=== PATIENT | male | born 1945 | race Caucasian/White ===

== ENCOUNTER → 2017-08-28 | Outpatient (CLI) | payer OTHER ==
[~2017-08-28] MED LIST: (None)20 M1 PO; ABAC300; ACET500; ALBU4CRA; ALBU90OI6 INH; AMOCLA875 PO; AMOX500 PO; AZIT500 PO; BENZ100A PO; CHLO2; CIPR250 PO; Duoneb 2.5-0.5 M3 ML INH; FLUT1DIS5 INH; GUAI600T33 PO; HYDACE5 PO; HYDR1TAB94 PO; IBUP200; LEVFLO500 PO; MELO7.5 PO; METO25 PO; MUCUS ER600 MG PO; Mucinex600 MG; NICO14TP TOP; NICO21TP TOP; OMEP40CA12 PO; PRED20; PRED20 PO; PROACE100 PO; RANI150 PO; RXPROACE PO; SPIRIVA RESPIMAT4 G1 INH; TAMS.4ER PO; TIOT18; TRAM50; XARELTO20 MG PO; Zofran8 MG
[2017-08-28 12:56] LABS: BASOPHILS ABSOLUTE AUTO 0.08 K/mm3 (0.00-0.23); BASOPHILS PERCENT AUTO 0 % (0-2); EOSINOPHILS ABSOLUTE AUTO 0.01 K/mm3 (0.00-0.68); EOSINOPHILS PERCENT AUTO 0 % (0-6); Hematocrit 41.5 % (37.0-53.0); Hemoglobin 13.3 g/dL (13.5-17.5); IMMATURE GRAN ABSOLUTE AUTO 0.23 K/mm3 (0.00-0.10); IMMATURE GRAN PERCENT AUTO 1 % (0-1); LYMPHOCYTES ABSOLUTE AUTO 5.41 K/mm3 (0.84-5.20); LYMPHOCYTES PERCENT AUTO 27 % (21-46); MONOCYTES ABSOLUTE AUTO 1.72 K/mm3 (0.16-1.47); MONOCYTES PERCENT AUTO 9 % (4-13); Mean Corpuscular HGB 29.8 pg (26.0-34.0); Mean Corpuscular Volume 93 fL (80-100); Mean Platelet Volume 10.8 fL (9.1-12.4); NEUTROPHILS ABSOLUTE AUTO 12.56 K/mm3 (1.96-9.15); NEUTROPHILS PERCENT AUTO 63 % (41-73); Platelet Count 272 K/mm3 (150-400); RDW Coefficient Variation 14.2 % (11.7-14.2); RDW Standard Deviation 48.4 fL (35.1-46.3); Red Blood Cell Count 4.47 M/mm3 (4.30-5.90); White Blood Cell Count 20.01 K/mm3 (4.00-11.30)
[2017-08-28 13:02] LABS: Bun/Creatinine Ratio 15.8 (12.0-20.0); Calcium, Blood 9.1 mg/dL (8.5-10.1); Creatinine, Blood 1.2 mg/dL (0.60-1.20); Potassium, Blood 4.4 mmol/L (3.5-5.5)
== END | disposition home or self-care (01) ==
LOC: LAB EV 12:52
PROVIDERS: Physician Assistant Surgical
DX: R53.83 Other fatigue (principal)
CPT/HCPCS: 80048; 85025

== ENCOUNTER → 2017-08-29 | Outpatient (CLI) | payer OTHER ==
[2017-08-29 10:15] LABS: BASOPHILS ABSOLUTE AUTO 0.05 K/mm3 (0.00-0.23); BASOPHILS PERCENT AUTO 0 % (0-2); EOSINOPHILS ABSOLUTE AUTO 0.02 K/mm3 (0.00-0.68); EOSINOPHILS PERCENT AUTO 0 % (0-6); Hematocrit 39.1 % (37.0-53.0); Hemoglobin 12.8 g/dL (13.5-17.5); IMMATURE GRAN ABSOLUTE AUTO 0.12 K/mm3 (0.00-0.10); IMMATURE GRAN PERCENT AUTO 1 % (0-1); LYMPHOCYTES ABSOLUTE AUTO 4.16 K/mm3 (0.84-5.20); LYMPHOCYTES PERCENT AUTO 30 % (21-46); MONOCYTES ABSOLUTE AUTO 1.12 K/mm3 (0.16-1.47); MONOCYTES PERCENT AUTO 8 % (4-13); Mean Corpuscular HGB 30.1 pg (26.0-34.0); Mean Corpuscular HGB Conc 32.7 g/dL (31.5-36.5); Mean Corpuscular Volume 92 fL (80-100); Mean Platelet Volume 10.9 fL (9.1-12.4); NEUTROPHILS ABSOLUTE AUTO 8.25 K/mm3 (1.96-9.15); NEUTROPHILS PERCENT AUTO 60 % (41-73); Platelet Count 227 K/mm3 (150-400); RDW Coefficient Variation 14.1 % (11.7-14.2); RDW Standard Deviation 47.9 fL (35.1-46.3); Red Blood Cell Count 4.25 M/mm3 (4.30-5.90); White Blood Cell Count 13.72 K/mm3 (4.00-11.30)
[2017-08-29 10:17] LABS: Anion Gap 5 mmol/L (6-16); Blood Urea Nitrogen 19 mg/dL (8-24); Bun/Creatinine Ratio 16.4 (12.0-20.0); CO2, Blood 31 mmol/L (21-32); Calcium, Blood 8.9 mg/dL (8.5-10.1); Chloride, Blood 103 mmol/L (98-108); Creatinine, Blood 1.16 mg/dL (0.60-1.20); Glomerular Filtration Rate >60 (60-); Glucose, Blood 139 mg/dL (70-99); Potassium, Blood 3.8 mmol/L (3.5-5.5); Sodium, Blood 139 mmol/L (136-145)
== END | disposition home or self-care (01) ==
LOC: LAB EV 10:08
PROVIDERS: Physician Assistant Surgical
DX: J18.9 Pneumonia, unspecified organism (principal)
CPT/HCPCS: 80048; 85025

== ENCOUNTER 2017-09-30 10:46 | Inpatient (IN) | payer OTHER ==
[~2017-09-30] VITALS: Ht 165.1 cm; Wt 72.7 kg
[~2017-09-30 10:46] MED LIST changes: -BENZ100A PO; -Duoneb 2.5-0.5 M3 ML INH; -HYDR1TAB94 PO; -METO25 PO; -MUCUS ER600 MG PO; -NICO21TP TOP; -PRED20 PO; -XARELTO20 MG PO
[2017-09-30 11:17] LABS: Hematocrit 38.9 % (37.0-53.0); Hemoglobin 12.4 g/dL (13.5-17.5); Mean Corpuscular HGB 29.2 pg (26.0-34.0); Mean Corpuscular HGB Conc 31.9 g/dL (31.5-36.5); Mean Corpuscular Volume 92 fL (80-100); Mean Platelet Volume 10.9 fL (9.1-12.4); Platelet Count 179 K/mm3 (150-400); RDW Coefficient Variation 13.7 % (11.7-14.2); RDW Standard Deviation 46.5 fL (35.1-46.3); Red Blood Cell Count 4.25 M/mm3 (4.30-5.90); White Blood Cell Count 12.34 K/mm3 (4.00-11.30)
[2017-09-30 11:32] LABS: Alanine Aminotransfer (ALT/SGP 23 U/L (12-78); Albumin/Globulin Ratio 0.8 (0.8-1.8); Alk Phos 122 U/L (50-136); Anion Gap 8 mmol/L (6-16); Aspartate Aminotrans (AST/SGOT 18 U/L (12-37); Bilirubin, Total 0.7 mg/dL (0.1-1.0); Blood Urea Nitrogen 13 mg/dL (8-24); CO2, Blood 29 mmol/L (21-32); Calcium, Blood 8.9 mg/dL (8.5-10.1); Chloride, Blood 101 mmol/L (98-108); Creatinine, Blood 0.93 mg/dL (0.60-1.20); Globulin, Blood 3.8 g/dL (2.2-4.0); Glomerular Filtration Rate >60 (60-); Glucose, Blood 107 mg/dL (70-99); Potassium, Blood 3.9 mmol/L (3.5-5.5); Sodium, Blood 138 mmol/L (136-145); Total Protein, Blood 6.8 g/dL (6.4-8.2); Troponin I <0.015 ng/mL (0.000-0.040)
[2017-09-30 11:41] LABS: BAND PERCENT MAN 14 % (0-8); BASOPHILS PERCENT MAN 0 % (0-2); EOSINOPHILS ABSOLUTE MAN 0.12 K/mm3 (0.00-0.68); EOSINOPHILS PERCENT MAN 1 % (0-6); LYMPHOCYTES % ATYPICAL MANUAL 5 % (0-0); LYMPHOCYTES ABSOLUTE MAN 3.08 K/mm3 (0.84-5.20); LYMPHOCYTES PERCENT MAN 20 % (21-46); MONOCYTES ABSOLUTE MAN 2.22 K/mm3 (0.16-1.47); MONOCYTES PERCENT MAN 18 % (4-13); NEUTROPHILS ABSOLUTE MAN 6.91 K/mm3 (1.96-9.15); SEG NEUTROPHILS PERCENT MAN 42 % (41-73); TOTAL CELLS COUNTED 100
[2017-09-30] MEDS ORDERED: TAMS.4ER PO (13:41)
[2017-10-01 04:18] LABS: BASOPHILS ABSOLUTE AUTO 0.03 K/mm3 (0.00-0.23); BASOPHILS PERCENT AUTO 0 % (0-2); EOSINOPHILS PERCENT AUTO 0 % (0-6); Hematocrit 37.9 % (37.0-53.0); Hemoglobin 11.8 g/dL (13.5-17.5); IMMATURE GRAN ABSOLUTE AUTO 0.08 K/mm3 (0.00-0.10); IMMATURE GRAN PERCENT AUTO 1 % (0-1); LYMPHOCYTES ABSOLUTE AUTO 3.15 K/mm3 (0.84-5.20); LYMPHOCYTES PERCENT AUTO 30 % (21-46); MONOCYTES ABSOLUTE AUTO 0.63 K/mm3 (0.16-1.47); MONOCYTES PERCENT AUTO 6 % (4-13); Mean Corpuscular HGB 28.9 pg (26.0-34.0); Mean Corpuscular HGB Conc 31.1 g/dL (31.5-36.5); Mean Corpuscular Volume 93 fL (80-100); NEUTROPHILS ABSOLUTE AUTO 6.56 K/mm3 (1.96-9.15); NEUTROPHILS PERCENT AUTO 63 % (41-73); Platelet Count 198 K/mm3 (150-400); RDW Coefficient Variation 13.8 % (11.7-14.2); RDW Standard Deviation 47.1 fL (35.1-46.3); Red Blood Cell Count 4.09 M/mm3 (4.30-5.90); White Blood Cell Count 10.45 K/mm3 (4.00-11.30)
[2017-10-01 04:41] LABS: Anion Gap 7 mmol/L (6-16); Blood Urea Nitrogen 18 mg/dL (8-24); Bun/Creatinine Ratio 18.9 (12.0-20.0); CO2, Blood 30 mmol/L (21-32); Calcium, Blood 8.6 mg/dL (8.5-10.1); Chloride, Blood 103 mmol/L (98-108); Creatinine, Blood 0.95 mg/dL (0.60-1.20); Glomerular Filtration Rate >60 (60-); Glucose, Blood 158 mg/dL (70-99); Potassium, Blood 4.2 mmol/L (3.5-5.5); Sodium, Blood 140 mmol/L (136-145)
[2017-10-03 05:19] LABS: BASOPHILS ABSOLUTE AUTO 0.03 K/mm3 (0.00-0.23); BASOPHILS PERCENT AUTO 0 % (0-2); EOSINOPHILS ABSOLUTE AUTO 0.01 K/mm3 (0.00-0.68); EOSINOPHILS PERCENT AUTO 0 % (0-6); Hematocrit 36.8 % (37.0-53.0); Hemoglobin 11.6 g/dL (13.5-17.5); Mean Corpuscular HGB 29.3 pg (26.0-34.0); Mean Corpuscular HGB Conc 31.5 g/dL (31.5-36.5); Mean Corpuscular Volume 93 fL (80-100); Mean Platelet Volume 10.9 fL (9.1-12.4); Platelet Count 254 K/mm3 (150-400); RDW Coefficient Variation 14.1 % (11.7-14.2); RDW Standard Deviation 48.3 fL (35.1-46.3); Red Blood Cell Count 3.96 M/mm3 (4.30-5.90); White Blood Cell Count 14.33 K/mm3 (4.00-11.30)
[2017-10-03 05:25] LABS: IMMATURE GRAN ABSOLUTE AUTO 0.21 K/mm3 (0.00-0.10); IMMATURE GRAN PERCENT AUTO 2 % (0-1); LYMPHOCYTES PERCENT AUTO 40 % (21-46); MONOCYTES ABSOLUTE AUTO 1.04 K/mm3 (0.16-1.47); MONOCYTES PERCENT AUTO 7 % (4-13); NEUTROPHILS ABSOLUTE AUTO 7.34 K/mm3 (1.96-9.15); NEUTROPHILS PERCENT AUTO 51 % (41-73)
[2017-10-03 05:39] LABS: Anion Gap 6 mmol/L (6-16); Blood Urea Nitrogen 23 mg/dL (8-24); CO2, Blood 31 mmol/L (21-32); Calcium, Blood 8.5 mg/dL (8.5-10.1); Chloride, Blood 104 mmol/L (98-108); Glomerular Filtration Rate >60 (60-); Glucose, Blood 107 mg/dL (70-99); Potassium, Blood 4.1 mmol/L (3.5-5.5); Sodium, Blood 141 mmol/L (136-145)
[2017-10-05 05:16] LABS: BASOPHILS ABSOLUTE AUTO 0.04 K/mm3 (0.00-0.23); BASOPHILS PERCENT AUTO 0 % (0-2); EOSINOPHILS ABSOLUTE AUTO 0.01 K/mm3 (0.00-0.68); EOSINOPHILS PERCENT AUTO 0 % (0-6); Hematocrit 38.5 % (37.0-53.0); Hemoglobin 12.4 g/dL (13.5-17.5); Mean Corpuscular HGB 29.1 pg (26.0-34.0); Mean Corpuscular HGB Conc 32.2 g/dL (31.5-36.5); Mean Platelet Volume 10.1 fL (9.1-12.4); Platelet Count 310 K/mm3 (150-400); RDW Coefficient Variation 13.8 % (11.7-14.2); RDW Standard Deviation 46.5 fL (35.1-46.3); Red Blood Cell Count 4.26 M/mm3 (4.30-5.90); White Blood Cell Count 15.31 K/mm3 (4.00-11.30)
[2017-10-05 05:36] LABS: IMMATURE GRAN PERCENT AUTO 2 % (0-1); LYMPHOCYTES ABSOLUTE AUTO 6.85 K/mm3 (0.84-5.20); LYMPHOCYTES PERCENT AUTO 45 % (21-46); MONOCYTES PERCENT AUTO 6 % (4-13); Mean Corpuscular Volume 90 fL (80-100); NEUTROPHILS ABSOLUTE AUTO 7.21 K/mm3 (1.96-9.15); NEUTROPHILS PERCENT AUTO 47 % (41-73)
[2017-10-05 05:48] LABS: Anion Gap 6 mmol/L (6-16); Blood Urea Nitrogen 23 mg/dL (8-24); Bun/Creatinine Ratio 26.3 (12.0-20.0); CO2, Blood 33 mmol/L (21-32); Calcium, Blood 8.8 mg/dL (8.5-10.1); Chloride, Blood 101 mmol/L (98-108); Creatinine, Blood 0.88 mg/dL (0.60-1.20); Glomerular Filtration Rate >60 (60-); Glucose, Blood 113 mg/dL (70-99); Potassium, Blood 4.7 mmol/L (3.5-5.5); Sodium, Blood 140 mmol/L (136-145)
[2017-10-06] MEDS ORDERED: BENZ100A PO (10:04)
[2017-10-06] MEDS ORDERED: Duoneb 2.5-0.5 M3 ML INH (10:05)
[2017-10-06] MEDS ORDERED: MUCUS ER600 MG PO (10:05)
[2017-10-06] MEDS ORDERED: METO25 PO (10:06)
[2017-10-06] MEDS ORDERED: XARELTO20 MG PO (10:07)
[2017-10-06] MEDS ORDERED: PRED20 PO (10:08)
[2018-05-20] MEDS ORDERED: NICO21TP TOP (15:23)
== END 2017-10-06 11:37 | disposition home or self-care (01) | DRG 871 ==
LOC: ER 10:46 → PCU 14:05 → MEDS 10-02 03:55 → ENPENDDIS 10-06 09:00 → MEDS 10-06 11:37
PROVIDERS: Internal Medicine; Psychiatry & Neurology Psychiatry
DX: A41.9 Sepsis, unspecified organism (principal); J18.9 Pneumonia, unspecified organism; J96.21 Acute and chronic respiratory failure with hypoxia; J44.0 Chronic obstructive pulmonary disease with (acute) lower respiratory infection; I48.91 Unspecified atrial fibrillation; R13.10 Dysphagia, unspecified; J44.1 Chronic obstructive pulmonary disease with (acute) exacerbation; C95.91 Leukemia, unspecified, in remission; R65.10 Systemic inflammatory response syndrome (SIRS) of non-infectious origin without acute organ dysfunction; Z85.46 Personal history of malignant neoplasm of prostate; F17.200 Nicotine dependence, unspecified, uncomplicated
CPT/HCPCS: 36415; 71046; 80048; 80053; 83605; 83880; 84145; 84443; 84484; 85025; 87040; 92526; 92610; 93005; 93010; 93306; 94640; 94760; 96365; 96375; 99285; G8996; G8997; J0456; J0696; J7030; J7050; J7120

== ENCOUNTER → 2017-10-20 | Outpatient (CLI) | payer OTHER ==
[~2017-10-20] MED LIST changes: +BENZ100A PO; +Duoneb 2.5-0.5 M3 ML INH; +HYDR1TAB94 PO; +METO25 PO; +MUCUS ER600 MG PO; +NICO21TP TOP; +PRED20 PO; +XARELTO20 MG PO
[2017-10-20 12:44] LABS: BASOPHILS ABSOLUTE AUTO 0.03 K/mm3 (0.00-0.23); BASOPHILS PERCENT AUTO 0 % (0-2); EOSINOPHILS ABSOLUTE AUTO 0.02 K/mm3 (0.00-0.68); EOSINOPHILS PERCENT AUTO 0 % (0-6); Hematocrit 40.2 % (37.0-53.0); Hemoglobin 12.9 g/dL (13.5-17.5); IMMATURE GRAN ABSOLUTE AUTO 0.18 K/mm3 (0.00-0.10); IMMATURE GRAN PERCENT AUTO 1 % (0-1); LYMPHOCYTES ABSOLUTE AUTO 7.04 K/mm3 (0.84-5.20); LYMPHOCYTES PERCENT AUTO 32 % (21-46); MONOCYTES ABSOLUTE AUTO 1.63 K/mm3 (0.16-1.47); MONOCYTES PERCENT AUTO 7 % (4-13); Mean Corpuscular HGB 29.6 pg (26.0-34.0); Mean Corpuscular HGB Conc 32.1 g/dL (31.5-36.5); Mean Corpuscular Volume 92 fL (80-100); Mean Platelet Volume 10.7 fL (9.1-12.4); NEUTROPHILS ABSOLUTE AUTO 13.44 K/mm3 (1.96-9.15); NEUTROPHILS PERCENT AUTO 60 % (41-73); Platelet Count 260 K/mm3 (150-400); RDW Coefficient Variation 15.4 % (11.7-14.2); Red Blood Cell Count 4.36 M/mm3 (4.30-5.90); White Blood Cell Count 22.34 K/mm3 (4.00-11.30)
[2017-10-20 12:54] LABS: Alanine Aminotransfer (ALT/SGP 21 U/L (12-78); Albumin, Blood 3.2 g/dL (3.4-5.0); Alk Phos 97 U/L (40-126); Anion Gap 3 mmol/L (6-16); Aspartate Aminotrans (AST/SGOT 9 U/L (12-37); Bilirubin, Total 0.9 mg/dL (0.1-1.0); Blood Urea Nitrogen 22 mg/dL (8-24); Bun/Creatinine Ratio 20.4 (12.0-20.0); CO2, Blood 34 mmol/L (21-32); Calcium, Blood 8.7 mg/dL (8.5-10.1); Chloride, Blood 103 mmol/L (98-108); Creatinine, Blood 1.08 mg/dL (0.60-1.20); Globulin, Blood 3.1 g/dL (2.2-4.0); Glomerular Filtration Rate >60 (60-); Glucose, Blood 122 mg/dL (70-99); Potassium, Blood 4.3 mmol/L (3.5-5.5); Sodium, Blood 140 mmol/L (136-145); Total Protein, Blood 6.3 g/dL (6.4-8.2)
== END | disposition home or self-care (01) ==
LOC: LAB EV 12:39
PROVIDERS: Physician Assistant Medical
DX: J44.1 Chronic obstructive pulmonary disease with (acute) exacerbation (principal); R06.00 Dyspnea, unspecified
CPT/HCPCS: 80053; 83880; 85025

== ENCOUNTER 2017-11-03 10:29 | Inpatient (IN) | payer OTHER ==
[~2017-11-03] VITALS: Ht 162.6 cm; Wt 72.4 kg
[~2017-11-03 10:29] MED LIST changes: -HYDR1TAB94 PO
[2017-11-03] MEDS ORDERED: HYDR1TAB94 PO (11:22)
[2017-11-03 11:23] LABS: Hematocrit 36.2 % (37.0-53.0); Hemoglobin 11.4 g/dL (13.5-17.5); Mean Corpuscular HGB 28.5 pg (26.0-34.0); Mean Corpuscular HGB Conc 31.5 g/dL (31.5-36.5); Mean Corpuscular Volume 91 fL (80-100); Mean Platelet Volume 10.6 fL (9.1-12.4); Platelet Count 247 K/mm3 (150-400); RDW Coefficient Variation 14.7 % (11.7-14.2); RDW Standard Deviation 49.1 fL (35.1-46.3); White Blood Cell Count 16.95 K/mm3 (4.00-11.30)
[2017-11-03] MEDS ORDERED: ALBU90OI6 INH (11:23)
[2017-11-03 11:31] LABS: Troponin I <0.015 ng/mL (0.000-0.040)
[2017-11-03 11:32] LABS: Alanine Aminotransfer (ALT/SGP 21 U/L (12-78); Albumin, Blood 2.4 g/dL (3.4-5.0); Albumin/Globulin Ratio 0.6 (0.8-1.8); Alk Phos 96 U/L (50-136); Anion Gap 3 mmol/L (6-16); Aspartate Aminotrans (AST/SGOT 9 U/L (12-37); Bilirubin, Total 0.6 mg/dL (0.1-1.0); Blood Urea Nitrogen 12 mg/dL (8-24); Bun/Creatinine Ratio 12.7 (12.0-20.0); CO2, Blood 30 mmol/L (21-32); Calcium, Blood 8.5 mg/dL (8.5-10.1); Chloride, Blood 103 mmol/L (98-108); Creatinine, Blood 0.94 mg/dL (0.60-1.20); Globulin, Blood 3.8 g/dL (2.2-4.0); Glomerular Filtration Rate >60 (60-); Glucose, Blood 121 mg/dL (70-99); Potassium, Blood 4.3 mmol/L (3.5-5.5); Sodium, Blood 136 mmol/L (136-145); Total Protein, Blood 6.2 g/dL (6.4-8.2)
[2017-11-03 12:10] LABS: BAND PERCENT MAN 10 % (0-8); BASOPHILS PERCENT MAN 0 % (0-2); EOSINOPHILS PERCENT MAN 0 % (0-6); LYMPHOCYTES ABSOLUTE MAN 1.86 K/mm3 (0.84-5.20); LYMPHOCYTES PERCENT MAN 11 % (21-46); METAMYELOCYTE ABSOLUTE MAN 0.16 K/mm3 (0.00-0.00); METAMYELOCYTE PERCENT MAN 1 % (0-0); MONOCYTES ABSOLUTE MAN 1.01 K/mm3 (0.16-1.47); MONOCYTES PERCENT MAN 6 % (4-13); NEUTROPHILS ABSOLUTE MAN 13.89 K/mm3 (1.96-9.15); SEG NEUTROPHILS PERCENT MAN 72 % (41-73); TOTAL CELLS COUNTED 100
[2017-11-04 05:32] LABS: BASOPHILS ABSOLUTE AUTO 0.01 K/mm3 (0.00-0.23); BASOPHILS PERCENT AUTO 0 % (0-2); EOSINOPHILS PERCENT AUTO 0 % (0-6); Hematocrit 32.7 % (37.0-53.0); Hemoglobin 10.3 g/dL (13.5-17.5); IMMATURE GRAN ABSOLUTE AUTO 0.08 K/mm3 (0.00-0.10); IMMATURE GRAN PERCENT AUTO 1 % (0-1); LYMPHOCYTES ABSOLUTE AUTO 2.33 K/mm3 (0.84-5.20); LYMPHOCYTES PERCENT AUTO 28 % (21-46); MONOCYTES ABSOLUTE AUTO 0.25 K/mm3 (0.16-1.47); MONOCYTES PERCENT AUTO 3 % (4-13); Mean Corpuscular HGB 28.3 pg (26.0-34.0); Mean Corpuscular HGB Conc 31.5 g/dL (31.5-36.5); Mean Corpuscular Volume 90 fL (80-100); Mean Platelet Volume 10.6 fL (9.1-12.4); NEUTROPHILS ABSOLUTE AUTO 5.54 K/mm3 (1.96-9.15); NEUTROPHILS PERCENT AUTO 68 % (41-73); Platelet Count 231 K/mm3 (150-400); RDW Coefficient Variation 14.4 % (11.7-14.2); Red Blood Cell Count 3.64 M/mm3 (4.30-5.90); White Blood Cell Count 8.21 K/mm3 (4.00-11.30)
[2017-11-04 05:56] LABS: Alanine Aminotransfer (ALT/SGP 16 U/L (12-78); Albumin/Globulin Ratio 0.6 (0.8-1.8); Alk Phos 81 U/L (50-136); Anion Gap 5 mmol/L (6-16); Aspartate Aminotrans (AST/SGOT 6 U/L (12-37); Bilirubin, Total 0.2 mg/dL (0.1-1.0); Blood Urea Nitrogen 19 mg/dL (8-24); Bun/Creatinine Ratio 23.2 (12.0-20.0); CO2, Blood 28 mmol/L (21-32); Calcium, Blood 8.3 mg/dL (8.5-10.1); Chloride, Blood 106 mmol/L (98-108); Creatinine, Blood 0.82 mg/dL (0.60-1.20); Globulin, Blood 3.5 g/dL (2.2-4.0); Glomerular Filtration Rate >60 (60-); Glucose, Blood 179 mg/dL (70-99); Potassium, Blood 4.5 mmol/L (3.5-5.5); Sodium, Blood 139 mmol/L (136-145); Total Protein, Blood 5.5 g/dL (6.4-8.2)
[2017-11-04 11:23] LABS: Source, Urine Clean Catch
[2017-11-04 11:30] LABS: Bilirubin, Urine Neg (Neg); Blood, Urine 1+ (Neg); Glucose Qualitative, Urine 2+ (Neg); Ketones, Urine Neg (Neg); Leukocyte Esterase, Urine Neg (Neg); Nitrite, Urine Neg (Neg); Protein, Urine 2+ (Neg); Specific Gravity, Urine 1.025 (1.003-1.022); Urobilinogen, Urine NORM (Normal)
[2017-11-04 11:39] LABS: Appearance, Urine Clear (Clear); Color, Urine Yellow (P-Yellow)
[2017-11-04 11:40] LABS: Hyaline Casts 0-2 /lpf (0-2)
[2017-11-04 11:41] LABS: Bacteria Few /hpf; Mucus Light (0-Heavy); Red Blood Cells, Urine 0-2 /hpf (0-2); Squamous Epithelial Cells Few /hpf (Few); White Blood Cells, Urine 0-2 /hpf (0-5)
[2017-11-06 05:12] LABS: BASOPHILS ABSOLUTE AUTO 0.03 K/mm3 (0.00-0.23); BASOPHILS PERCENT AUTO 0 % (0-2); EOSINOPHILS PERCENT AUTO 0 % (0-6); Hematocrit 33.9 % (37.0-53.0); Hemoglobin 10.5 g/dL (13.5-17.5); IMMATURE GRAN ABSOLUTE AUTO 0.35 K/mm3 (0.00-0.10); IMMATURE GRAN PERCENT AUTO 2 % (0-1); LYMPHOCYTES ABSOLUTE AUTO 3.66 K/mm3 (0.84-5.20); LYMPHOCYTES PERCENT AUTO 24 % (21-46); MONOCYTES ABSOLUTE AUTO 0.31 K/mm3 (0.16-1.47); MONOCYTES PERCENT AUTO 2 % (4-13); Mean Corpuscular HGB 28.2 pg (26.0-34.0); Mean Corpuscular Volume 91 fL (80-100); Mean Platelet Volume 10.7 fL (9.1-12.4); NEUTROPHILS ABSOLUTE AUTO 11.05 K/mm3 (1.96-9.15); NEUTROPHILS PERCENT AUTO 72 % (41-73); Platelet Count 322 K/mm3 (150-400); RDW Coefficient Variation 14.5 % (11.7-14.2); RDW Standard Deviation 48.6 fL (35.1-46.3); Red Blood Cell Count 3.72 M/mm3 (4.30-5.90)
[2017-11-06 05:36] LABS: Percent Saturation 27.1 % (20.0-50.0)
[2017-11-06 05:42] LABS: Alanine Aminotransfer (ALT/SGP 29 U/L (12-78); Albumin, Blood 2.3 g/dL (3.4-5.0); Albumin/Globulin Ratio 0.7 (0.8-1.8); Alk Phos 85 U/L (50-136); Anion Gap 7 mmol/L (6-16); Aspartate Aminotrans (AST/SGOT 10 U/L (12-37); Bilirubin, Total 0.2 mg/dL (0.1-1.0); Blood Urea Nitrogen 31 mg/dL (8-24); Bun/Creatinine Ratio 29.8 (12.0-20.0); CO2, Blood 29 mmol/L (21-32); Calcium, Blood 8.3 mg/dL (8.5-10.1); Chloride, Blood 105 mmol/L (98-108); Creatinine, Blood 1.04 mg/dL (0.60-1.20); Globulin, Blood 3.3 g/dL (2.2-4.0); Glomerular Filtration Rate >60 (60-); Glucose, Blood 251 mg/dL (70-99); Potassium, Blood 4.5 mmol/L (3.5-5.5); Sodium, Blood 141 mmol/L (136-145); Total Protein, Blood 5.6 g/dL (6.4-8.2)
[2018-05-20] MEDS ORDERED: NICO21TP TOP (15:23)
== END 2017-11-06 14:34 | disposition home or self-care (01) | DRG 871 ==
LOC: ER 10:29 → MEDS 12:37 → ENPENDDIS 11-06 11:58 → MEDS 11-06 14:34
PROVIDERS: Emergency Medicine; Internal Medicine
DX: A41.9 Sepsis, unspecified organism (principal); J18.9 Pneumonia, unspecified organism; J96.01 Acute respiratory failure with hypoxia; J44.0 Chronic obstructive pulmonary disease with (acute) lower respiratory infection; J44.1 Chronic obstructive pulmonary disease with (acute) exacerbation; I48.2 Chronic atrial fibrillation; R13.10 Dysphagia, unspecified; Z85.46 Personal history of malignant neoplasm of prostate; Z85.6 Personal history of leukemia; Z87.891 Personal history of nicotine dependence; Z79.51 Long term (current) use of inhaled steroids; Z79.899 Other long term (current) drug therapy
CPT/HCPCS: 36415; 71046; 71260; 74160; 80053; 81001; 82728; 83540; 83550; 83605; 83880; 84484; 85025; 87040; 87070; 87077; 87086; 87185; 87205; 93005; 93010; 94640; 94667; 94760; 96374; 96375; 98960; 99285; J0456; J0696; J1885; J2930; J7030; J7050; Q9967

== ENCOUNTER → 2017-11-03 | Outpatient (CLI) | payer OTHER ==
[~2017-11-03] MED LIST changes: -NICO21TP TOP
[2017-11-03 09:47] LABS: BASOPHILS ABSOLUTE AUTO 0.05 K/mm3 (0.00-0.23); BASOPHILS PERCENT AUTO 0 % (0-2); EOSINOPHILS ABSOLUTE AUTO 0.04 K/mm3 (0.00-0.68); EOSINOPHILS PERCENT AUTO 0 % (0-6); Hematocrit 34.9 % (37.0-53.0); Hemoglobin 11.3 g/dL (13.5-17.5); IMMATURE GRAN ABSOLUTE AUTO 0.12 K/mm3 (0.00-0.10); IMMATURE GRAN PERCENT AUTO 1 % (0-1); LYMPHOCYTES ABSOLUTE AUTO 4.47 K/mm3 (0.84-5.20); LYMPHOCYTES PERCENT AUTO 29 % (21-46); MONOCYTES ABSOLUTE AUTO 1.28 K/mm3 (0.16-1.47); MONOCYTES PERCENT AUTO 8 % (4-13); Mean Corpuscular HGB 29.1 pg (26.0-34.0); Mean Corpuscular HGB Conc 32.4 g/dL (31.5-36.5); Mean Corpuscular Volume 90 fL (80-100); Mean Platelet Volume 10.2 fL (9.1-12.4); NEUTROPHILS ABSOLUTE AUTO 9.74 K/mm3 (1.96-9.15); NEUTROPHILS PERCENT AUTO 62 % (41-73); Platelet Count 246 K/mm3 (150-400); RDW Coefficient Variation 14.9 % (11.7-14.2); Red Blood Cell Count 3.88 M/mm3 (4.30-5.90)
[2017-11-03 10:03] LABS: Alanine Aminotransfer (ALT/SGP 21 U/L (12-78); Albumin, Blood 2.4 g/dL (3.4-5.0); Albumin/Globulin Ratio 0.6 (0.8-1.8); Alk Phos 97 U/L (40-126); Anion Gap 5 mmol/L (6-16); Aspartate Aminotrans (AST/SGOT 9 U/L (12-37); Bilirubin, Total 0.6 mg/dL (0.1-1.0); Blood Urea Nitrogen 11 mg/dL (8-24); Bun/Creatinine Ratio 10.7 (12.0-20.0); CO2, Blood 31 mmol/L (21-32); Calcium, Blood 8.8 mg/dL (8.5-10.1); Chloride, Blood 101 mmol/L (98-108); Creatinine, Blood 1.03 mg/dL (0.60-1.20); Globulin, Blood 3.7 g/dL (2.2-4.0); Glomerular Filtration Rate >60 (60-); Glucose, Blood 134 mg/dL (70-99); Potassium, Blood 4.2 mmol/L (3.5-5.5); Sodium, Blood 137 mmol/L (136-145); Total Protein, Blood 6.1 g/dL (6.4-8.2); Troponin I <0.017 ng/mL (0.000-0.040)
== END | disposition home or self-care (01) ==
LOC: LAB SHORT 09:42 → LAB EV 09:42
PROVIDERS: Physician Assistant
DX: R05 Cough (principal); R07.9 Chest pain, unspecified
CPT/HCPCS: 80053; 83880; 84484; 85025; 87070; 87077; 87185; 87205

== ENCOUNTER → 2018-02-16 | Outpatient (CLI) | payer OTHER ==
[~2018-02-16] MED LIST changes: +HYDR1TAB94 PO
[2018-02-16 17:20] LABS: BASOPHILS ABSOLUTE AUTO 0.05 K/mm3 (0.00-0.23); BASOPHILS PERCENT AUTO 0 % (0-2); EOSINOPHILS ABSOLUTE AUTO 0.03 K/mm3 (0.00-0.68); EOSINOPHILS PERCENT AUTO 0 % (0-6); Hematocrit 43.4 % (37.0-53.0); Hemoglobin 13.2 g/dL (13.5-17.5); IMMATURE GRAN ABSOLUTE AUTO 0.07 K/mm3 (0.00-0.10); IMMATURE GRAN PERCENT AUTO 1 % (0-1); LYMPHOCYTES ABSOLUTE AUTO 4.32 K/mm3 (0.84-5.20); LYMPHOCYTES PERCENT AUTO 34 % (21-46); MONOCYTES ABSOLUTE AUTO 0.85 K/mm3 (0.16-1.47); MONOCYTES PERCENT AUTO 7 % (4-13); Mean Corpuscular HGB 28.8 pg (26.0-34.0); Mean Corpuscular HGB Conc 30.4 g/dL (31.5-36.5); Mean Corpuscular Volume 95 fL (80-100); Mean Platelet Volume 10.4 fL (9.1-12.4); NEUTROPHILS ABSOLUTE AUTO 7.35 K/mm3 (1.96-9.15); NEUTROPHILS PERCENT AUTO 58 % (41-73); Platelet Count 267 K/mm3 (150-400); RDW Coefficient Variation 14.2 % (11.7-14.2); RDW Standard Deviation 49.3 fL (35.1-46.3); Red Blood Cell Count 4.59 M/mm3 (4.30-5.90); White Blood Cell Count 12.67 K/mm3 (4.00-11.30)
== END | disposition home or self-care (01) ==
LOC: LAB EV 17:16 → LAB SHORT 17:16
PROVIDERS: Family Medicine
DX: R07.89 Other chest pain (principal)
CPT/HCPCS: 84484; 85025

== ENCOUNTER 2018-08-21 16:55 | Inpatient (IN) | payer OTHER ==
[~2018-08-21] VITALS: Ht 157.5 cm; Wt 61.6 kg
[~2018-08-21 16:55] MED LIST changes: -Aspercreme 1035.4 GM TOP; -LEVO750 PO; -ONDA4ODT MM; -PRED10 PO; -ROBITUSSIN DM PO; -SACC250C PO; -Tylenol325 MG PO
[2018-08-22 04:38] LABS: Hematocrit 37.9 % (37.0-53.0); Mean Corpuscular HGB 28.4 pg (26.0-34.0); Mean Corpuscular HGB Conc 31.7 g/dL (31.5-36.5); Mean Corpuscular Volume 90 fL (80-100); Platelet Count 153 K/mm3 (150-400); RDW Coefficient Variation 15.4 % (11.7-14.2); RDW Standard Deviation 50.9 fL (35.1-46.3); Red Blood Cell Count 4.23 M/mm3 (4.30-5.90)
[2018-08-22 04:58] LABS: Alanine Aminotransfer (ALT/SGP 14 U/L (12-78); Albumin/Globulin Ratio 1.1 (0.8-1.8); Alk Phos 112 U/L (50-136); Anion Gap 6 mmol/L (6-16); Aspartate Aminotrans (AST/SGOT 9 U/L (12-37); Bilirubin, Total 0.9 mg/dL (0.1-1.0); Blood Urea Nitrogen 15 mg/dL (8-24); CO2, Blood 29 mmol/L (21-32); Calcium, Blood 8.2 mg/dL (8.5-10.1); Chloride, Blood 106 mmol/L (98-108); Creatinine, Blood 0.84 mg/dL (0.60-1.20); Globulin, Blood 2.7 g/dL (2.2-4.0); Glomerular Filtration Rate >60 (60-); Glucose, Blood 156 mg/dL (70-99); Potassium, Blood 4.9 mmol/L (3.5-5.5); Sodium, Blood 141 mmol/L (136-145); Total Protein, Blood 5.7 g/dL (6.4-8.2)
--- NOTE | 2018-08-22 05:00 | NUR ---
SHIFT SUMMARY PT ER ADMIT THIS SHIFT FOR PNA. PT HAS RESTED MOST OF THE NIGHT AND HAS DENIED NEEDS. LUNGS ARE COURSE AND MOIST, BREATHING TREATMENTS ORDERED. IV LEVAQUIN AND SOLUMEDROL ORDERED. PT A/OX4, SLOW TO RESPOND. ADMISSION COMPLETE. WILL CONTINUE TO MONITOR AND REPORT TO ONCOMING RN.
[2018-08-22 12:47] LABS: Adenovirus Not Detected (NOT DETECT); Bordetella pertussis Not Detected (NOT DETECT); Chlamydophila pneumoniae Not Detected (NOT DETECT); Coronavirus 229E Not Detected (NOT DETECT); Coronavirus HKU1 Not Detected (NOT DETECT); Coronavirus NL63 Not Detected (NOT DETECT); Coronavirus OC43 Not Detected (NOT DETECT); Human Metapneumovirus Not Detected (NOT DETECT); Human Rhinovirus/Enterovirus Not Detected (NOT DETECT); Influenza A/2009-H1 Not Detected (NOT DETECT); Influenza A/H1 Not Detected (NOT DETECT); Influenza A/H3 Not Detected (NOT DETECT); Influenza B Not Detected (NOT DETECT); Mycoplasma pneumoniae Not Detected (NOT DETECT); Parainfluenza Virus 1 Not Detected (NOT DETECT); Parainfluenza Virus 2 Not Detected (NOT DETECT); Parainfluenza Virus 3 Not Detected (NOT DETECT); Parainfluenza Virus 4 Not Detected (NOT DETECT); Respiratory Syncytial Virus Not Detected (NOT DETECT)
[2018-08-22 14:07] LABS: Influenza A Not Detected (NOT DETECT)
--- NOTE | 2018-08-22 18:07 | NUR ---
summary PT IS A/O X2, FORGETFUL OF DATES, SIMPLE CHILDLIKE AFFECT, PLEASANT/COOPERATIVE. UP IND TO BR. STATE FEELING IMPROVED. COARSE PROD COUGH, SPUTUM SAMPLE & RESP PANEL COLLECTED/SENT TODAY. LUNGS DECREASED, COARSE WITH EXP WHEEZE. IV ANTI BX & SOLUMEDROL CONTINUE. O2 @ 2L, BIOX 94%. PRN ROBITUSSIN X2 TODAY FOR COUGH, TYLENOL 650MG X2 FOR BODY ACHES/COUGH. NO FEVER, VSS.
--- NOTE | 2018-08-23 04:45 | NUR ---
SHIFT SUMMARY PT HAS RESTED MOST OF THE NIGHT. HE IS PLESANT WITH STAFF, A/OX4. AGREEABLE WITH TREATMENT. IV ABX INFUSED ORDERED, IV SOLUMEDROL ALSO ADMINISTERED ORDERED. 2L O2 IN PLACE. LUNG SOUNDS TIGHT T/O. PRODUCTIVE HARSH COUGH WITH THICK YELOW SPUTUM. BREATHING TREATMENTS PER ORDERS. PT HAS HAD NO COMPLAINTS. WILL CONTINUE TO MONITOR AND REPORT TO ONCOMING RN.
[2018-08-23 04:57] LABS: Hematocrit 36.8 % (37.0-53.0); Hemoglobin 11.6 g/dL (13.5-17.5); Mean Corpuscular HGB 28.2 pg (26.0-34.0); Mean Corpuscular HGB Conc 31.5 g/dL (31.5-36.5); Mean Corpuscular Volume 89 fL (80-100); Mean Platelet Volume 11.3 fL (9.1-12.4); Platelet Count 168 K/mm3 (150-400); RDW Coefficient Variation 15.5 % (11.7-14.2); RDW Standard Deviation 50.9 fL (35.1-46.3); Red Blood Cell Count 4.12 M/mm3 (4.30-5.90); White Blood Cell Count 19.98 K/mm3 (4.00-11.30)
[2018-08-23 05:30] LABS: Anion Gap 8 mmol/L (6-16); Blood Urea Nitrogen 30 mg/dL (8-24); Bun/Creatinine Ratio 32.4 (12.0-20.0); CO2, Blood 27 mmol/L (21-32); Calcium, Blood 8.5 mg/dL (8.5-10.1); Chloride, Blood 105 mmol/L (98-108); Creatinine, Blood 0.93 mg/dL (0.60-1.20); Glomerular Filtration Rate >60 (60-); Glucose, Blood 181 mg/dL (70-99); Potassium, Blood 4.5 mmol/L (3.5-5.5); Sodium, Blood 140 mmol/L (136-145)
[2018-08-23 05:55] LABS: BASOPHILS PERCENT MAN 0 % (0-2); EOSINOPHILS PERCENT MAN 0 % (0-6); LYMPHOCYTES % ATYPICAL MANUAL 11 % (0-0); LYMPHOCYTES ABSOLUTE MAN 10.78 K/mm3 (0.84-5.20); LYMPHOCYTES PERCENT MAN 43 % (21-46); METAMYELOCYTE ABSOLUTE MAN 0.19 K/mm3 (0.00-0.00); METAMYELOCYTE PERCENT MAN 1 % (0-0); MONOCYTES ABSOLUTE MAN 0.19 K/mm3 (0.16-1.47); MONOCYTES PERCENT MAN 1 % (4-13); NEUTROPHILS ABSOLUTE MAN 8.79 K/mm3 (1.96-9.15); SEG NEUTROPHILS PERCENT MAN 44 % (41-73); TOTAL CELLS COUNTED 100
--- NOTE | 2018-08-23 18:43 | NUR ---
SHIFT SUMMARY LILIYA DENIED PAIN TIHS SHIFT. LUNGS COARSE AND WHEEZY BUT SAYS HIS BREATHING FEELS BETTER THAN YESTERDAY. 2L OXYGEN. GOT SHOWER, SISTER VISITED. TELE DC'D. PT UNABLE TO TELL ME HIS BIRTHDAY, SOME SLIGHT CONFUSION NOTED. INDEPENDENT TO BATHROOM. TOOK PILLS PRESCRIBED. WCTM
[2018-08-24 04:52] LABS: Hematocrit 36.7 % (37.0-53.0); Hemoglobin 11.5 g/dL (13.5-17.5); Mean Corpuscular HGB 28.8 pg (26.0-34.0); Mean Corpuscular HGB Conc 31.3 g/dL (31.5-36.5); Mean Corpuscular Volume 92 fL (80-100); Mean Platelet Volume 10.9 fL (9.1-12.4); Platelet Count 160 K/mm3 (150-400); RDW Coefficient Variation 15.9 % (11.7-14.2); Red Blood Cell Count 3.99 M/mm3 (4.30-5.90); White Blood Cell Count 19.24 K/mm3 (4.00-11.30)
[2018-08-24 05:07] LABS: Albumin, Blood 2.9 g/dL (3.4-5.0); Anion Gap 6 mmol/L (6-16); Blood Urea Nitrogen 32 mg/dL (8-24); Bun/Creatinine Ratio 33.8 (12.0-20.0); CO2, Blood 26 mmol/L (21-32); Calcium, Blood 8.2 mg/dL (8.5-10.1); Chloride, Blood 104 mmol/L (98-108); Creatinine, Blood 0.95 mg/dL (0.60-1.20); Glomerular Filtration Rate >60 (60-); Glucose, Blood 167 mg/dL (70-99); Phosphorus, Blood 3.2 mg/dL (2.5-4.9); Potassium, Blood 4.9 mmol/L (3.5-5.5); Sodium, Blood 136 mmol/L (136-145)
--- NOTE | 2018-08-24 05:19 | NUR ---
08/24/18 0515 AWAKE MOST OF NIGHT WITH C/O HEARTBURN. PAGED AND NEW ORDER FOR ANTI-ACID GIVEN WITH RELIEF. STATES HE SOMETIMES HAS DIFFICULTY SLEEPING AT NIGHT. VITALS STABLE. O2 AT 2 LPM VIA N/C. PT DOES GET SOB WITH MINIMAL ACTIVITIES SUCH TALKING.
[2018-08-24 05:22] LABS: BAND PERCENT MAN 4 % (0-8); BASOPHILS PERCENT MAN 0 % (0-2); EOSINOPHILS PERCENT MAN 0 % (0-6); LYMPHOCYTES % ATYPICAL MANUAL 8 % (0-0); LYMPHOCYTES ABSOLUTE MAN 5.96 K/mm3 (0.84-5.20); LYMPHOCYTES PERCENT MAN 23 % (21-46); MONOCYTES ABSOLUTE MAN 0.19 K/mm3 (0.16-1.47); MONOCYTES PERCENT MAN 1 % (4-13); NEUTROPHILS ABSOLUTE MAN 13.08 K/mm3 (1.96-9.15); SEG NEUTROPHILS PERCENT MAN 64 % (41-73); TOTAL CELLS COUNTED 100
--- NOTE | 2018-08-24 18:49 | NUR ---
SHIFT SUMMARY PATIENT A&O X3, SBA TO THE BATHROOM. DENIES ANY PAIN, SOB, OR NAUSEA THIS SHIFT. RESTED THROUGOUT THE SHIFT. FAMILY IN TO VISIT. RN MEDICATED PER Oct. NO ACUTE CHANGES. BED IN LOWEST POSITION, CALL LIGHT WITHIN REACH. WILL CONTINUE TO MONITOR.
[2018-08-25 04:35] LABS: Hematocrit 37.4 % (37.0-53.0); Hemoglobin 11.9 g/dL (13.5-17.5); Mean Corpuscular HGB 28.5 pg (26.0-34.0); Mean Corpuscular HGB Conc 31.8 g/dL (31.5-36.5); Mean Corpuscular Volume 90 fL (80-100); Mean Platelet Volume 11.1 fL (9.1-12.4); Platelet Count 167 K/mm3 (150-400); RDW Coefficient Variation 15.8 % (11.7-14.2); RDW Standard Deviation 51.4 fL (35.1-46.3); Red Blood Cell Count 4.17 M/mm3 (4.30-5.90); White Blood Cell Count 15.42 K/mm3 (4.00-11.30)
[2018-08-25 04:53] LABS: Albumin, Blood 2.9 g/dL (3.4-5.0); Anion Gap 5 mmol/L (6-16); Blood Urea Nitrogen 31 mg/dL (8-24); Bun/Creatinine Ratio 29.5 (12.0-20.0); CO2, Blood 30 mmol/L (21-32); Calcium, Blood 8.1 mg/dL (8.5-10.1); Chloride, Blood 103 mmol/L (98-108); Creatinine, Blood 1.05 mg/dL (0.60-1.20); Glomerular Filtration Rate >60 (60-); Glucose, Blood 150 mg/dL (70-99); Phosphorus, Blood 3.5 mg/dL (2.5-4.9); Potassium, Blood 4.8 mmol/L (3.5-5.5); Sodium, Blood 138 mmol/L (136-145)
[2018-08-25 05:20] LABS: BAND PERCENT MAN 3 % (0-8); BASOPHILS PERCENT MAN 0 % (0-2); EOSINOPHILS PERCENT MAN 0 % (0-6); LYMPHOCYTES % ATYPICAL MANUAL 4 % (0-0); LYMPHOCYTES ABSOLUTE MAN 9.86 K/mm3 (0.84-5.20); LYMPHOCYTES PERCENT MAN 60 % (21-46); MONOCYTES PERCENT MAN 0 % (4-13); NEUTROPHILS ABSOLUTE MAN 5.55 K/mm3 (1.96-9.15); SEG NEUTROPHILS PERCENT MAN 33 % (41-73); TOTAL CELLS COUNTED 100
--- NOTE | 2018-08-25 07:27 | NUR ---
08/25/18 0630 VITALS STABLE. NO COMPLAINTS THIS SHIFT. SOME SOB WITH EXERTION OR TALKING. UNEVENTFUL NIGHT.
--- NOTE | 2018-08-25 18:16 | NUR ---
PATIENT IS A/O TO SELF AND PLACE, CONFUSED ABOUT DATE TIME. LUNGS DIMINISHED WITH WHEEZES IN BASES. 2LO2 TO MAINTAIN SATS. RECEIVING SOLUMEDROL AND LEVAQUIN. 20G TO L UPPER ARM WNL AND SL. SKIN INTACT. VSS. PATIENT DENIES ANY PAIN THIS SHIFT. UP INDEPENDENTLY I ROOM. TOLERATING REGULAR DIET. LIVES WITH SISTER AND PLANS TO D/C BACK HOME [facility] D/C. NO ACUTE CHANGES THIS SHIFT.
--- NOTE | 2018-08-26 01:33 | NUR ---
08/25/182049 PT LYING IN BED, DENIES ANY DISCOMFORT AT THIS TIME. NO APPARENT SIGNS OF DISTRESS. CALL LIGHT IS IN REACH.
--- NOTE | 2018-08-26 02:01 | NUR ---
PT LYING IN BED, EYES CLOSED, APPEARS TO BE RESTING. BREATHING IS EVEN,UNLABORED. NO APPARENT SIGNS OF DISTRESS. CALL LIGHT IS IN REACH.
--- NOTE | 2018-08-26 02:01 | NUR ---
2346 PT LYING IN BED, EYES CLOSED, APPEARS TO BE RESTING. WAKES EASILY TO VERBAL STIMULI. NO APPARENT SIGNS OF DISTRESS. CALL LIGHT IS IN REACH.
--- NOTE | 2018-08-26 03:34 | NUR ---
PT LYING IN BED, AWAKE, COUGHING OCCASIONALLY, NO APPARENT SIGNS OF DISTRESS. CALL LIGHT IS IN REACH.
--- NOTE | 2018-08-26 03:42 | NUR ---
PT IS MOSTLY AAO, CANNOT TELL YOU THE DATE OR HIS BIRTHDAY, HX OF MILD DEMENTIA. DENIES ANY DISCOMFORT FOR THIS SHIFT. ON 1.5 L O2 NC AT 95%. HIS HX SAYS HE USES HOME O2 2L BUT NOT WETHER IT IS CONTINUOUS OR PRN OR JUST AT NIGHT.
[2018-08-26 05:27] LABS: Hematocrit 42.1 % (37.0-53.0); Hemoglobin 13.1 g/dL (13.5-17.5); Mean Corpuscular HGB 28.1 pg (26.0-34.0); Mean Corpuscular HGB Conc 31.1 g/dL (31.5-36.5); Mean Corpuscular Volume 90 fL (80-100); Mean Platelet Volume 11.1 fL (9.1-12.4); Platelet Count 167 K/mm3 (150-400); RDW Coefficient Variation 15.9 % (11.7-14.2); RDW Standard Deviation 52.9 fL (35.1-46.3); Red Blood Cell Count 4.66 M/mm3 (4.30-5.90); White Blood Cell Count 14.46 K/mm3 (4.00-11.30)
--- NOTE | 2018-08-26 05:33 | NUR ---
PT LYING IN BED,EYES CLOSED, APPEARS TO BE RESTING. BREATHING IS EVEN, UNLABORED. NO APPARENT SIGNS OF DISTRESS. CALL LIGHT IS IN REACH. NO OTHER CHANGES THIS SHIFT.
[2018-08-26 05:53] LABS: BASOPHILS PERCENT MAN 0 % (0-2); EOSINOPHILS PERCENT MAN 0 % (0-6); LYMPHOCYTES % ATYPICAL MANUAL 3 % (0-0); LYMPHOCYTES ABSOLUTE MAN 8.67 K/mm3 (0.84-5.20); LYMPHOCYTES PERCENT MAN 57 % (21-46); MONOCYTES ABSOLUTE MAN 0.14 K/mm3 (0.16-1.47); MONOCYTES PERCENT MAN 1 % (4-13); NEUTROPHILS ABSOLUTE MAN 5.63 K/mm3 (1.96-9.15); SEG NEUTROPHILS PERCENT MAN 39 % (41-73); TOTAL CELLS COUNTED 100
[2018-08-26] MEDS ORDERED: Tylenol325 MG PO (14:27)
[2018-08-26] MEDS ORDERED: ROBITUSSIN DM PO (14:33)
[2018-08-26] MEDS ORDERED: LEVO750 PO (14:33)
[2018-08-26] MEDS ORDERED: PRED10 PO (14:38)
[2018-08-26] MEDS ORDERED: ONDA4ODT MM (14:39)
[2018-08-26] MEDS ORDERED: SACC250C PO (14:42)
[2018-08-26] MEDS ORDERED: Aspercreme 1035.4 GM TOP (14:42)
== END 2018-08-26 15:12 | disposition home or self-care (01) | DRG 871 ==
LOC: ER 16:55 → MEDS 20:35 → ENPENDDIS 08-26 14:22 → MEDS 08-26 15:12
PROVIDERS: Family Medicine; ADMIT Internal Medicine
DX: A41.9 Sepsis, unspecified organism (principal); J18.9 Pneumonia, unspecified organism; J96.21 Acute and chronic respiratory failure with hypoxia; J44.0 Chronic obstructive pulmonary disease with (acute) lower respiratory infection; C95.91 Leukemia, unspecified, in remission; E46 Unspecified protein-calorie malnutrition; J20.9 Acute bronchitis, unspecified; R65.20 Severe sepsis without septic shock; J44.9 Chronic obstructive pulmonary disease, unspecified; N40.0 Benign prostatic hyperplasia without lower urinary tract symptoms; F03.90 Unspecified dementia, unspecified severity, without behavioral disturbance, psychotic disturbance, mood disturbance, and anxiety; D64.9 Anemia, unspecified; K21.9 Gastro-esophageal reflux disease without esophagitis; F17.210 Nicotine dependence, cigarettes, uncomplicated; Z85.46 Personal history of malignant neoplasm of prostate; Z99.81 Dependence on supplemental oxygen; Z68.26 Body mass index [BMI] 26.0-26.9, adult
CPT/HCPCS: 36415; 80048; 80053; 80069; 83605; 84145; 85025; 85027; 87040; 87070; 87205; 87486; 87581; 87633; 87798; 93005; 93010; 94640; 94664; 94667; 94760; 98960; 99284-25; 99407; J1650; J1956; J2930; J7050

== ENCOUNTER → 2018-08-21 | Outpatient (CLI) | payer OTHER ==
[~2018-08-21] MED LIST changes: +Aspercreme 1035.4 GM TOP; +LEVO750 PO; +NICO21TP TOP; +ONDA4ODT MM; +PRED10 PO; +ROBITUSSIN DM PO; +SACC250C PO; +Tylenol325 MG PO
[2018-08-21 16:10] LABS: Hematocrit 39.1 % (37.0-53.0); Hemoglobin 12.5 g/dL (13.5-17.5); Mean Corpuscular HGB 28.5 pg (26.0-34.0); Mean Corpuscular Volume 89 fL (80-100); Mean Platelet Volume 10.6 fL (9.1-12.4); Platelet Count 171 K/mm3 (150-400); RDW Coefficient Variation 15.6 % (11.7-14.2); Red Blood Cell Count 4.38 M/mm3 (4.30-5.90); White Blood Cell Count 24.21 K/mm3 (4.00-11.30)
[2018-08-21 16:22] LABS: Alanine Aminotransfer (ALT/SGP 16 U/L (12-78); Albumin, Blood 3.4 g/dL (3.4-5.0); Albumin/Globulin Ratio 1.3 (0.8-1.8); Alk Phos 118 U/L (40-126); Anion Gap 6 mmol/L (6-16); Aspartate Aminotrans (AST/SGOT 11 U/L (12-37); Bilirubin, Total 0.7 mg/dL (0.1-1.0); Blood Urea Nitrogen 15 mg/dL (8-24); Bun/Creatinine Ratio 15.5 (12.0-20.0); CO2, Blood 32 mmol/L (21-32); Calcium, Blood 8.5 mg/dL (8.5-10.1); Chloride, Blood 100 mmol/L (98-108); Creatinine, Blood 0.97 mg/dL (0.60-1.20); Globulin, Blood 2.7 g/dL (2.2-4.0); Glomerular Filtration Rate >60 (60-); Glucose, Blood 93 mg/dL (70-99); Potassium, Blood 4.4 mmol/L (3.5-5.5); Sodium, Blood 138 mmol/L (136-145); Total Protein, Blood 6.1 g/dL (6.4-8.2)
[2018-08-21 16:31] LABS: BAND PERCENT MAN 11 % (0-8); BASOPHILS PERCENT MAN 0 % (0-2); EOSINOPHILS PERCENT MAN 0 % (0-6); LYMPHOCYTES % ATYPICAL MANUAL 45 % (0-0); LYMPHOCYTES ABSOLUTE MAN 15.73 K/mm3 (0.84-5.20); LYMPHOCYTES PERCENT MAN 20 % (21-46); MONOCYTES PERCENT MAN 0 % (4-13); NEUTROPHILS ABSOLUTE MAN 8.47 K/mm3 (1.96-9.15); SEG NEUTROPHILS PERCENT MAN 24 % (41-73); TOTAL CELLS COUNTED 100
== END | disposition home or self-care (01) ==
LOC: LAB EV 16:06 → LAB SHORT 16:06
PROVIDERS: General Practice
DX: R07.9 Chest pain, unspecified (principal)
CPT/HCPCS: 80053; 85025

== ENCOUNTER 2018-12-30 12:55 | Inpatient (IN) | payer OTHER ==
[~2018-12-30] VITALS: Ht 170.2 cm; Wt 55.4 kg
[~2018-12-30 12:55] MED LIST changes: +Aspercreme 1035.4 GM TOP; +LEVO750 PO; +ONDA4ODT MM; +PRED10 PO; +ROBITUSSIN DM PO; +SACC250C PO; +Tylenol325 MG PO
[2018-12-30 14:23] LABS: Alanine Aminotransfer (ALT/SGP 21 U/L (12-78); Albumin, Blood 2.8 g/dL (3.4-5.0); Albumin/Globulin Ratio 0.7 (0.8-1.8); Alk Phos 119 U/L (50-136); Anion Gap 7 mmol/L (6-16); Aspartate Aminotrans (AST/SGOT 26 U/L (12-37); Bilirubin, Total 0.6 mg/dL (0.1-1.0); Blood Urea Nitrogen 26 mg/dL (8-24); Bun/Creatinine Ratio 28.3 (12.0-20.0); CO2, Blood 30 mmol/L (21-32); Calcium, Blood 8.7 mg/dL (8.5-10.1); Chloride, Blood 105 mmol/L (98-108); Creatinine, Blood 0.92 mg/dL (0.60-1.20); Globulin, Blood 3.8 g/dL (2.2-4.0); Glomerular Filtration Rate >60 (60-); Glucose, Blood 101 mg/dL (70-99); Sodium, Blood 142 mmol/L (136-145); Total Protein, Blood 6.6 g/dL (6.4-8.2)
[2018-12-30 14:25] LABS: Hematocrit 45.3 % (37.0-53.0); Hemoglobin 14.2 g/dL (13.5-17.5); Mean Corpuscular HGB 29.5 pg (26.0-34.0); Mean Corpuscular HGB Conc 31.3 g/dL (31.5-36.5); Mean Corpuscular Volume 94 fL (80-100); Mean Platelet Volume 10.9 fL (9.1-12.4); Platelet Count 229 K/mm3 (150-400); RDW Coefficient Variation 14.6 % (11.7-14.2); RDW Standard Deviation 50.8 fL (35.1-46.3); Red Blood Cell Count 4.82 M/mm3 (4.30-5.90); White Blood Cell Count 21.74 K/mm3 (4.00-11.30)
[2018-12-30 14:40] LABS: International Normalized Ratio 1.07; Prothrombin Time Results 11.3 Sec (9.7-11.5)
[2018-12-30] MEDS ORDERED: TIOT18 INH (15:47)
[2018-12-30] MEDS ORDERED: ALBU2.5V5 INH (15:49)
[2018-12-30 15:54] LABS: BAND PERCENT MAN 3 % (0-8); BASOPHILS PERCENT MAN 0 % (0-2); EOSINOPHILS PERCENT MAN 0 % (0-6); LYMPHOCYTES ABSOLUTE MAN 15.21 K/mm3 (0.84-5.20); LYMPHOCYTES PERCENT MAN 70 % (21-46); MONOCYTES ABSOLUTE MAN 0.43 K/mm3 (0.16-1.47); MONOCYTES PERCENT MAN 2 % (4-13); NEUTROPHILS ABSOLUTE MAN 6.08 K/mm3 (1.96-9.15); SEG NEUTROPHILS PERCENT MAN 25 % (41-73); TOTAL CELLS COUNTED 100
[2018-12-30] MEDS ORDERED: Zantac150 MG PO (18:38)
[2018-12-30] MEDS ORDERED: DALIRESP500 MCG PO (22:06)
[2018-12-31 05:32] LABS: Hematocrit 39.9 % (37.0-53.0); Hemoglobin 12.6 g/dL (13.5-17.5); Mean Corpuscular HGB 29.2 pg (26.0-34.0); Mean Corpuscular HGB Conc 31.6 g/dL (31.5-36.5); Mean Corpuscular Volume 92 fL (80-100); Mean Platelet Volume 10.6 fL (9.1-12.4); Platelet Count 226 K/mm3 (150-400); RDW Coefficient Variation 14.5 % (11.7-14.2); RDW Standard Deviation 49.1 fL (35.1-46.3); Red Blood Cell Count 4.32 M/mm3 (4.30-5.90); White Blood Cell Count 19.99 K/mm3 (4.00-11.30)
--- NOTE | 2018-12-31 06:28 | NUR ---
nonproductive cough, red devil, pleasent and cooperative, call light in reach, saline locked, alert at baseline knows person, place, will continue to treat, monitor and report until walking rounds completed with day staff
[2018-12-31 06:33] LABS: Anion Gap 6 mmol/L (6-16); Blood Urea Nitrogen 29 mg/dL (8-24); Bun/Creatinine Ratio 33.9 (12.0-20.0); CO2, Blood 28 mmol/L (21-32); Calcium, Blood 8.7 mg/dL (8.5-10.1); Chloride, Blood 104 mmol/L (98-108); Creatinine, Blood 0.86 mg/dL (0.60-1.20); Glomerular Filtration Rate >60 (60-); Glucose, Blood 134 mg/dL (70-99); Potassium, Blood 5.4 mmol/L (3.5-5.5); Sodium, Blood 138 mmol/L (136-145)
--- NOTE | 2018-12-31 19:12 | NUR ---
PATIENT RESTING IN BED. NO COMPLAINTS OF PAIN OR SOB.
--- NOTE | 2019-01-01 06:36 | NUR ---
a+o, 2L via nc, saline locked, call light in reach, cooperative with staff, [place], bed bound, will continue to monitor and treat until day staff has received walking round info for this pt
--- NOTE | 2019-01-01 08:00 | NUR ---
PT. PLEASANT AND COOPERATIVE.
--- NOTE | 2019-01-01 18:33 | NUR ---
PT. SITTING UP IN BED EATING. PT. HAS A GOOD APPETITE AND HAS EATEN 100% OF ALL MEALS. PT. HAS SLEPT QUITE A BIT TODAY AND HAS BEEN NOTED TO HAVE A WANDERING ATRIAL PACEMAKER RANGING FROM 70'-130'S. PT. DENIES CHESST PAIN BUT HAS BEEN DIAPHORETIC. NO OTHER CHANGES NOTED.
--- NOTE | 2019-01-02 03:12 | NUR ---
SHIFT SUMMARY PT PREFERS TO BE CALLED RED. PT ADMITTED FOR LLL PNEUMONIA WITH SEPSIS. FULL CODE. REGULAR DIET. SCDS. TELE-WONDERING ATRIAL PACEMAKER AT A RATE AVERAGE OF 104 PER CONVEYOR ATTENDANT. LOVENOX FOR DVT PROPHYLAXIS. 1 ASSIST FOR TRANSFER. USED THE URINAL THIS NIGHT WITH NO TRANSFERS COMPLETED SO FAR THIS SHIFT. TAKES MEDICATIONS WHOLE WITH WATER WITHOUT COMPLICATIONS. 20G IV TO THE R FA. 2.5 L O2 VIA NC WITH 3L AT PT BASELINE DOSE. PT PRESENTED TO THE ED WITH C/O PRODUCTIVE COUGH WITH DYSPNEA FOR SEVERAL DAYS. THE PT DID HAVE A POSITIVE BLOOD CULTURE. CALL TO PHARMACIST REGARDING CURRENT ABO REGIMEN WHO SUGGESTED CONTACTING HOSPITALIST. CALL TO HOSPITALIST WHO ASKED IF PT CONDITIONED HAD WORSENED, IF PT HAD FEVER, AND IF PT APPEARED TO BE IMPROVING. ADVISED MD THAT THIS NURSE DID NOT CARE FOR PT YESTERDAY BUT THE PT DID NOT APPEAR TO BE IN WORSE CONDITION ACCORDING TO DOCUMENTATION. PT WAS NOTED TO HAVE ELEVATED TEMPERATURE PER REPORT ON DAY SHIFT BUT NONE TO INDICATED NEED TYLENOL TO REDUCE TEMP. HOWEVER, NO ELEVATED TEMP NOTED IN EMAR. PT CONTINUES TO HAVE PRODUCTIVE COUGH. PT IS PLEASENT, COOPERATIVE, ALERT, AND ORIENTED. NOTED INCREASED SOB WITH ACTIVITY. APPEARS TO BE SLEEPING COMFORTABLY AT THIS TIME WITH NO APPARENT SIGNS OF ACUTE DISTRESS. ABLE TO MAKE NEEDS KNOWN AND CALL LIGHT IN REACH. BED ALARM FOR SAFETY.
[2019-01-02 05:02] LABS: Hematocrit 38.7 % (37.0-53.0); Hemoglobin 12.1 g/dL (13.5-17.5); Mean Corpuscular HGB 28.9 pg (26.0-34.0); Mean Corpuscular HGB Conc 31.3 g/dL (31.5-36.5); Mean Corpuscular Volume 93 fL (80-100); Mean Platelet Volume 10.5 fL (9.1-12.4); Platelet Count 237 K/mm3 (150-400); RDW Coefficient Variation 14.6 % (11.7-14.2); Red Blood Cell Count 4.18 M/mm3 (4.30-5.90); White Blood Cell Count 18.48 K/mm3 (4.00-11.30)
[2019-01-02 05:28] LABS: Anion Gap 5 mmol/L (6-16); Blood Urea Nitrogen 30 mg/dL (8-24); Bun/Creatinine Ratio 31.7 (12.0-20.0); CO2, Blood 33 mmol/L (21-32); Calcium, Blood 8.9 mg/dL (8.5-10.1); Chloride, Blood 101 mmol/L (98-108); Creatinine, Blood 0.95 mg/dL (0.60-1.20); Glomerular Filtration Rate >60 (60-); Glucose, Blood 256 mg/dL (70-99); Potassium, Blood 4.9 mmol/L (3.5-5.5); Sodium, Blood 139 mmol/L (136-145)
--- NOTE | 2019-01-02 19:05 | NUR ---
PT. SITTING IN BED WATCHING TV. NO COMPLAINTS BUT STILL HAS A COUGH AND SOB. CT OF CHEST COMPLETED. DR. HOOK ADDED ANOTHER ANITBIOTIC. NO NOTEABLE CHANGES, PT. HAS EATEN WELL AGAIN TODAY. LOOKS BETTER TODAY.
--- NOTE | 2019-01-03 03:58 | NUR ---
SHIFT SUMMARY NO APPARENT ACUTE CHANGES NOTED SO FAR THIS SHIFT. PT COUGH APPEARS TO HAVE IMPROVED SINCE LAST SHIFT. NO COUGH MEDICATION ADMINISTERED SO FAR THIS SHIFT. NEW ABO ADMINISTERED PER EMAR. THE PT HAS APPEARS TO SLEEP COMFORTABLY MOST OF THE NIGHT WITH NO APPARENT SIGNS OF ACUTE DSITRESS. ABLE TO MAKE NEEDS KNOWN AND CALL LIGHT IN REACH.
--- NOTE | 2019-01-03 15:52 | NUR ---
summary PT IS A/O X2, FORGETFUL OF DATES/TIME. HE IS PLEASANT/COOPERATIVE. 1 ASSIST, USES URINAL. HE STATE WEAKNESS/FATIGUE, PRODUCTIVE COUGH. LUNGS COARSE, DECREASED, INTERMITTANT PROD COUGH [place] SPUTUM. O2 @ 2.5L, BIOX >90%, HE STATE NO SOB @ REST. TELE REPORT CONTINUING WAP HR 80'S-100. VSS, AFEBRILE. CHECKERING MACHINE ADJUSTER ASSIST HIM TO SHOWER TODAY. D/C IV ANTIBX HAWA & ELVIN, NAN CONTINUES.
[2019-01-04 04:57] LABS: Hematocrit 37.2 % (37.0-53.0); Hemoglobin 11.6 g/dL (13.5-17.5); Mean Corpuscular HGB 28.5 pg (26.0-34.0); Mean Corpuscular HGB Conc 31.2 g/dL (31.5-36.5); Mean Corpuscular Volume 91 fL (80-100); Mean Platelet Volume 10.6 fL (9.1-12.4); Platelet Count 239 K/mm3 (150-400); RDW Coefficient Variation 14.7 % (11.7-14.2); RDW Standard Deviation 49.3 fL (35.1-46.3); Red Blood Cell Count 4.07 M/mm3 (4.30-5.90); White Blood Cell Count 18.53 K/mm3 (4.00-11.30)
[2019-01-04 05:10] LABS: Anion Gap 3 mmol/L (6-16); Blood Urea Nitrogen 41 mg/dL (8-24); Bun/Creatinine Ratio 41.2 (12.0-20.0); CO2, Blood 35 mmol/L (21-32); Calcium, Blood 8.5 mg/dL (8.5-10.1); Chloride, Blood 102 mmol/L (98-108); Creatinine, Blood 0.99 mg/dL (0.60-1.20); Glomerular Filtration Rate >60 (60-); Glucose, Blood 235 mg/dL (70-99); Potassium, Blood 4.7 mmol/L (3.5-5.5); Sodium, Blood 140 mmol/L (136-145)
--- NOTE | 2019-01-04 16:44 | NUR ---
PT WAS A/O DURING SHIFT. PT WAS ABLE TO STATE DURING MORNING MEDICATIONS BUT WAS UNABLE TO DO SO DURING LUNCHTIME MEDS NOR COULD HE STATE THE YEAR OR CURRENT PRESIDENT. PT WAS COMPLIANT WITH MEDICATION ADMINISTRATION AND ATE HIS ENTIRE MEALS. PT DOES HAVE A PRODUCTIVE COUGH WHICH WITH CLEAR TO SLIGHTLY BROWN EXPECTORANT. PT USES URINAL BUT DOES NEED A ONE PERSON ASSIST TO THE BATHROOM. PT KNOWS TO USE CALL LIGHT AND CALL LIGHT IS IN REACH.
--- NOTE | 2019-01-04 19:05 | NUR ---
SHIFT SUMMARY NO ACUTE CHANGES THIS SHIFT. PT HAS HAD NO COMPLAINTS. REPORT GIVEN TO LEI RN. CALL LIGHT IN REACH AND BED ALARM ON FOR SAFETY.
[2019-01-05 05:13] LABS: BASOPHILS ABSOLUTE AUTO 0.03 K/mm3 (0.00-0.23); BASOPHILS PERCENT AUTO 0 % (0-2); EOSINOPHILS ABSOLUTE AUTO 0.01 K/mm3 (0.00-0.68); EOSINOPHILS PERCENT AUTO 0 % (0-6); Hematocrit 36.4 % (37.0-53.0); Hemoglobin 11.4 g/dL (13.5-17.5); Mean Corpuscular HGB 28.4 pg (26.0-34.0); Mean Corpuscular HGB Conc 31.3 g/dL (31.5-36.5); Mean Corpuscular Volume 91 fL (80-100); Mean Platelet Volume 10.3 fL (9.1-12.4); Platelet Count 232 K/mm3 (150-400); RDW Coefficient Variation 14.9 % (11.7-14.2); RDW Standard Deviation 49.5 fL (35.1-46.3); Red Blood Cell Count 4.01 M/mm3 (4.30-5.90); White Blood Cell Count 16.74 K/mm3 (4.00-11.30)
[2019-01-05 05:17] LABS: IMMATURE GRAN ABSOLUTE AUTO 0.19 K/mm3 (0.00-0.10); IMMATURE GRAN PERCENT AUTO 1 % (0-1); LYMPHOCYTES ABSOLUTE AUTO 11.18 K/mm3 (0.84-5.20); LYMPHOCYTES PERCENT AUTO 67 % (21-46); MONOCYTES PERCENT AUTO 8 % (4-13); NEUTROPHILS ABSOLUTE AUTO 3.93 K/mm3 (1.96-9.15); NEUTROPHILS PERCENT AUTO 23 % (41-73)
--- NOTE | 2019-01-05 05:36 | NUR ---
PER TELEMETRY PATIENT MAINTAING HR IN 120S, SPOKE TO MARSHALL PAUL, MADE HIM AWARE THAT PATIENT HAD CONVERTED TO AFIB YEASTERDAY AROUND 0730AM, NO NEW ORDERS RECEIVED.
[2019-01-05 06:12] LABS: BASOPHILS PERCENT MAN 0 % (0-2); EOSINOPHILS PERCENT MAN 0 % (0-6); LYMPHOCYTES ABSOLUTE MAN 12.05 K/mm3 (0.84-5.20); LYMPHOCYTES PERCENT MAN 72 % (21-46); MONOCYTES PERCENT MAN 3 % (4-13); NEUTROPHILS ABSOLUTE MAN 4.18 K/mm3 (1.96-9.15); SEG NEUTROPHILS PERCENT MAN 25 % (41-73); TOTAL CELLS COUNTED 100
--- NOTE | 2019-01-05 16:37 | NUR ---
HEART RATE/BLOOD SUGAR THIS RN CALLED DR. REY ABOUT PT'S HEART RATE AVERAGING 120'S PER PCU CHEESE PANCAKE ROLLER. PT'S BLOOD PRESSURE WNL. THIS RN ALSO TALKED WITH DR. REY ABOUT PT'S BLOOD SUGAR OF 394 WITH NO SLIDING SCALE ORDERS. DR. REY REPORTS SHE WILL BE PUTTING IN NEW ORDERS FOR HEART RATE AND BLOOD SUGAR. CALL LIGHT IN REACH. WILL CONTINUE TO MONITOR.
--- NOTE | 2019-01-05 16:41 | NUR ---
SHIFT SUMMARY PT WORKED WITH PHYSICAL THERAPY THIS SHIFT AND HAS BEEN SITTING UP IN THE CHAIR MOST OF THE DAY. PT HAS HAD NO COMPLAINTS THIS SHIFT. PT'S HEART RATE HAS BEEN ELEVATED AND RECEIVED IV/PO CARDIZEM THIS AM. PT'S HEART RATE CONTINUES TO BE 110-130, AVERAGING 120 PER PCU SENIOR SOFTWARE SYSTEMS ENGINEER. DR. REY AWARE AND PLACING NEW ORDERS. PT HAS HAD NO ACUTE CHANGES THIS SHIFT. CALL LIGHT IN REACH. WILL CONTINUE TO MONITOR AND REPORT TO ONCOMING RN.
--- NOTE | 2019-01-06 04:40 | NUR ---
LATE ENTRY PHYSICIAN CORRESPONDENCE 2009 BLOOD SUGAR 405; GAVE SCHEDULED SS OF 10U HUMALOG -RECHECK BLOOD SUGAR IN ONE HOUR
--- NOTE | 2019-01-06 04:52 | NUR ---
SHIFT SUMMARY A/O, ABLE TO MAKE NEEDS KNOWN. ANSWERING QUESTIONS APPROPRIATELY. SPEAKING IN FULL SENTENCES WITH GARBLED SPEECH. COOPERATIVE WITH CARE. NO C/O PAIN/DISCOMFORT. USES URINAL AT BEDSIDE. 1P ASSIST TO RESTROOM; APPEARS STEADY ON FEET. ON TELE RUNNING AFIB @ 114 THIS AM. NO ACUTE CHANGES OVERNIGHT. WCTM. BED IN LOWEST POSITION. CALL LIGHT AND BELONGINGS WITHIN REACH. REPORT TO ONCOMING RN.
[2019-01-06 04:59] LABS: BASOPHILS ABSOLUTE AUTO 0.04 K/mm3 (0.00-0.23); BASOPHILS PERCENT AUTO 0 % (0-2); EOSINOPHILS ABSOLUTE AUTO 0.01 K/mm3 (0.00-0.68); EOSINOPHILS PERCENT AUTO 0 % (0-6); Hematocrit 35.3 % (37.0-53.0); Hemoglobin 11.1 g/dL (13.5-17.5); IMMATURE GRAN ABSOLUTE AUTO 0.37 K/mm3 (0.00-0.10); IMMATURE GRAN PERCENT AUTO 2 % (0-1); Mean Corpuscular HGB 28.6 pg (26.0-34.0); Mean Corpuscular HGB Conc 31.4 g/dL (31.5-36.5); Mean Corpuscular Volume 91 fL (80-100); Mean Platelet Volume 10.2 fL (9.1-12.4); NEUTROPHILS ABSOLUTE AUTO 3.98 K/mm3 (1.96-9.15); NEUTROPHILS PERCENT AUTO 22 % (41-73); Platelet Count 220 K/mm3 (150-400); RDW Coefficient Variation 15.1 % (11.7-14.2); RDW Standard Deviation 50.4 fL (35.1-46.3); Red Blood Cell Count 3.88 M/mm3 (4.30-5.90); White Blood Cell Count 18.24 K/mm3 (4.00-11.30)
[2019-01-06 05:02] LABS: LYMPHOCYTES ABSOLUTE AUTO 12.63 K/mm3 (0.84-5.20); LYMPHOCYTES PERCENT AUTO 69 % (21-46); MONOCYTES ABSOLUTE AUTO 1.21 K/mm3 (0.16-1.47); MONOCYTES PERCENT AUTO 7 % (4-13)
[2019-01-06 05:33] LABS: Albumin, Blood 2.4 g/dL (3.4-5.0); Anion Gap 8 mmol/L (6-16); Blood Urea Nitrogen 33 mg/dL (8-24); CO2, Blood 31 mmol/L (21-32); Calcium, Blood 8.1 mg/dL (8.5-10.1); Chloride, Blood 98 mmol/L (98-108); Creatinine, Blood 0.92 mg/dL (0.60-1.20); Glomerular Filtration Rate >60 (60-); Glucose, Blood 383 mg/dL (70-99); Phosphorus, Blood 2.3 mg/dL (2.5-4.9); Potassium, Blood 4.5 mmol/L (3.5-5.5); Sodium, Blood 137 mmol/L (136-145)
--- NOTE | 2019-01-06 16:20 | NUR ---
PT IS ALERT AND ORIENTED AND COOPERATIVE WITH CARE. HE IS GALENA. 2L O2 VIA NC PRN. THE PATIENT'S OXYGEN SATURATIONS ARE ABOVE 90 AT REST. HIS HEART RATE HAS DECREASED SIGNIFICANTLY FROM 119 TO [address]. PT USES THE URINAL BUT STILL NEEDS HIS ATTENDS CHANGED FROM SPILLING. PT PARTICIPATED WITH PHYSICAL AND OCCUPATIONAL THERAPY TODAY. WILL CONTINUE MONITORING.
[2019-01-07 06:20] LABS: Albumin, Blood 2.7 g/dL (3.4-5.0); Anion Gap 4 mmol/L (6-16); Blood Urea Nitrogen 38 mg/dL (8-24); Bun/Creatinine Ratio 36.2 (12.0-20.0); CO2, Blood 34 mmol/L (21-32); Calcium, Blood 8.1 mg/dL (8.5-10.1); Chloride, Blood 100 mmol/L (98-108); Creatinine, Blood 1.05 mg/dL (0.60-1.20); Glomerular Filtration Rate >60 (60-); Glucose, Blood 164 mg/dL (70-99); Phosphorus, Blood 3.9 mg/dL (2.5-4.9); Sodium, Blood 138 mmol/L (136-145)
--- NOTE | 2019-01-07 07:19 | NUR ---
SHIFT SUMMARY: PATIENT ALERT AND ORIENTED, WITH GARBLED SPEECH. LUNG SOUNDS ARE IMPROVING SLOWLY, WITH INSPIRTORY AND EXPIRTORY WHEEZES. COUGH STILL PRODUCTIVE WITH THICK YELLOW SUPUTM. STATES FEELS IT MORE IN THE ANTERIOR AREA. AND THERE IS A MILD COURSE SOUNDS IN THE ANTERIOR BRONCHIAL AREA. SOB WITH EXERTION NOTED. ON RA AT THIS TIME. PT RUNNING AFIB AVERAGING IN THE 68-70'S PER CEREAL POPPER. IV FLUSHED WIHT 10CC WITH NO PROBLEM TO RIGHT FA, DRESSING INTACT. DENIES ANY PAIN OR DISCOMFORT. CHEM BG AVERAGE IN MAX HIGH 200'S ALL NIGHT. GOOD APPETITE, AND FLUID INTAKE. NO FURTHER ACUTE CHANGES TO NOTE.
[2019-01-07 12:21] LABS: BASOPHILS ABSOLUTE AUTO 0.09 K/mm3 (0.00-0.23); BASOPHILS PERCENT AUTO 0 % (0-2); EOSINOPHILS ABSOLUTE AUTO 0.03 K/mm3 (0.00-0.68); EOSINOPHILS PERCENT AUTO 0 % (0-6); Hematocrit 39.8 % (37.0-53.0); Hemoglobin 12.5 g/dL (13.5-17.5); Mean Corpuscular HGB 28.5 pg (26.0-34.0); Mean Corpuscular HGB Conc 31.4 g/dL (31.5-36.5); Mean Corpuscular Volume 91 fL (80-100); Mean Platelet Volume 10.7 fL (9.1-12.4); Platelet Count 258 K/mm3 (150-400); RDW Coefficient Variation 15.5 % (11.7-14.2); RDW Standard Deviation 51.2 fL (35.1-46.3); Red Blood Cell Count 4.38 M/mm3 (4.30-5.90); White Blood Cell Count 27.15 K/mm3 (4.00-11.30)
[2019-01-07 12:26] LABS: IMMATURE GRAN ABSOLUTE AUTO 0.44 K/mm3 (0.00-0.10); IMMATURE GRAN PERCENT AUTO 2 % (0-1); LYMPHOCYTES ABSOLUTE AUTO 18.24 K/mm3 (0.84-5.20); LYMPHOCYTES PERCENT AUTO 67 % (21-46); MONOCYTES ABSOLUTE AUTO 1.25 K/mm3 (0.16-1.47); MONOCYTES PERCENT AUTO 5 % (4-13); NEUTROPHILS PERCENT AUTO 26 % (41-73)
[2019-01-07 13:20] LABS: BASOPHILS PERCENT MAN 0 % (0-2); EOSINOPHILS PERCENT MAN 0 % (0-6); LYMPHOCYTES ABSOLUTE MAN 19.81 K/mm3 (0.84-5.20); LYMPHOCYTES PERCENT MAN 73 % (21-46); MONOCYTES PERCENT MAN 0 % (4-13); NEUTROPHILS ABSOLUTE MAN 7.33 K/mm3 (1.96-9.15); SEG NEUTROPHILS PERCENT MAN 27 % (41-73); TOTAL CELLS COUNTED 100
--- NOTE | 2019-01-07 16:57 | NUR ---
SHIFT SUMMARY CONSULT CALLED TO DR. CUEVAS OFFICE RELATED TO PATIENTS PREVIOUS HISTORY OF CLL. DR. CUEVAS IS OUT UNTIL THURSDAY AND STATED HE WILL SEE THE PATIENT OUTPATIENT OR IN THE HOSPITAL IF HE IS STILL HERE THURSDAY. PATIENT PLEASANT, MILDLY CONFUSED TO SITUATION OCCASIONALLY. WORKED WELL WITH OCCUPATIONAL AND PHYSICAL THERAPY TODAY. AWAITING ANY NEW RESULTS.
--- NOTE | 2019-01-08 04:57 | NUR ---
SHIFT SUMMARY PT WANTING TO LEAVE OXYGEN ON DURING THE NIGHT FOR COMFORT. HAS SLEPT WELL, OFFERS NO C/O'S. NO ACUTE EVENTS NOTED DURING THE NIGHT, WILL CONTINUE TO MONITOR.
[2019-01-08 08:51] LABS: EOSINOPHILS ABSOLUTE AUTO 0.02 K/mm3 (0.00-0.68); EOSINOPHILS PERCENT AUTO 0 % (0-6); Hematocrit 39.8 % (37.0-53.0); Hemoglobin 12.7 g/dL (13.5-17.5); Mean Corpuscular HGB Conc 31.9 g/dL (31.5-36.5); Mean Corpuscular Volume 91 fL (80-100); Mean Platelet Volume 10.4 fL (9.1-12.4); Platelet Count 244 K/mm3 (150-400); RDW Coefficient Variation 15.7 % (11.7-14.2); RDW Standard Deviation 52.7 fL (35.1-46.3); Red Blood Cell Count 4.38 M/mm3 (4.30-5.90); White Blood Cell Count 27.68 K/mm3 (4.00-11.30)
[2019-01-08 08:52] LABS: BASOPHILS ABSOLUTE AUTO 0.05 K/mm3 (0.00-0.23); BASOPHILS PERCENT AUTO 0 % (0-2); IMMATURE GRAN ABSOLUTE AUTO 0.56 K/mm3 (0.00-0.10); IMMATURE GRAN PERCENT AUTO 2 % (0-1); LYMPHOCYTES ABSOLUTE AUTO 19.92 K/mm3 (0.84-5.20); LYMPHOCYTES PERCENT AUTO 72 % (21-46); MONOCYTES ABSOLUTE AUTO 1.34 K/mm3 (0.16-1.47); MONOCYTES PERCENT AUTO 5 % (4-13); NEUTROPHILS ABSOLUTE AUTO 5.79 K/mm3 (1.96-9.15); NEUTROPHILS PERCENT AUTO 21 % (41-73)
[2019-01-08] MEDS ORDERED: DILT120 PO (11:41)
[2019-01-08] MEDS ORDERED: THERA TABLET400 MCG PO (11:42)
[2019-01-08] MEDS ORDERED: PRED10 PO (11:43)
[2019-01-08] MEDS ORDERED: B-1100 MG PO (11:43)
[2019-01-08] MEDS ORDERED: Augmentin 875-1 EACH PO (11:43)
--- NOTE | 2019-01-08 14:19 | NUR ---
PATIENT DISCHARGED AT 14:19 ON 01/08/19.
== END 2019-01-08 14:10 | disposition home health service (06) | DRG 871 ==
LOC: ER 12:55 → MEDS 16:04 → ENPENDDIS 01-08 10:57 → MEDS 01-08 14:10
PROVIDERS: Internal Medicine; Physician Assistant; ADMIT Internal Medicine
DX: A41.9 Sepsis, unspecified organism (principal); J18.1 Lobar pneumonia, unspecified organism; J44.1 Chronic obstructive pulmonary disease with (acute) exacerbation; J44.0 Chronic obstructive pulmonary disease with (acute) lower respiratory infection; J96.11 Chronic respiratory failure with hypoxia; E83.39 Other disorders of phosphorus metabolism; F17.210 Nicotine dependence, cigarettes, uncomplicated; F10.20 Alcohol dependence, uncomplicated; C61 Malignant neoplasm of prostate; N40.1 Benign prostatic hyperplasia with lower urinary tract symptoms; Z85.6 Personal history of leukemia; Z99.81 Dependence on supplemental oxygen; I48.0 Paroxysmal atrial fibrillation; F03.90 Unspecified dementia, unspecified severity, without behavioral disturbance, psychotic disturbance, mood disturbance, and anxiety; R73.9 Hyperglycemia, unspecified; N18.3 Chronic kidney disease, stage 3 (moderate)
CPT/HCPCS: 36415; 71046; 71250; 80048; 80053; 80069; 82947; 83605; 85025; 85027; 85610; 85730; 87040; 87070; 87205; 93005; 93010; 94640; 94667; 94760; 96365; 97116; 97161; 97164; 97166; 97530; 97535; 99285-25; J1650; J1956; J2543; J2920; J3370; J7050; J7060; J7512

== ENCOUNTER 2019-01-18 09:35 | Inpatient (IN) | payer OTHER ==
[~2019-01-18] VITALS: Ht 162.6 cm; Wt 57.5 kg
[~2019-01-18 09:35] MED LIST changes: +ALBU2.5V5 INH; +Augmentin 875-1 EACH PO; +B-1100 MG PO; +DALIRESP500 MCG PO; +DILT120 PO; +THERA TABLET400 MCG PO; +TIOT18 INH; +Zantac150 MG PO
[2019-01-18 09:44] LABS: PCO2 Arterial 76.7 mmHg (35-45); PO2 Arterial 86.5 mmHg (80-100); pH Blood Arterial 7.21 (7.35-7.45)
[2019-01-18 10:04] LABS: Hematocrit 40.3 % (37.0-53.0); Hemoglobin 12.6 g/dL (13.5-17.5); Mean Corpuscular HGB 29.1 pg (26.0-34.0); Mean Corpuscular HGB Conc 31.3 g/dL (31.5-36.5); Mean Corpuscular Volume 93 fL (80-100); Mean Platelet Volume 10.6 fL (9.1-12.4); Platelet Count 179 K/mm3 (150-400); RDW Coefficient Variation 15.9 % (11.7-14.2); RDW Standard Deviation 54.7 fL (35.1-46.3); Red Blood Cell Count 4.33 M/mm3 (4.30-5.90)
[2019-01-18 10:27] LABS: BAND PERCENT MAN 3 % (0-8); BASOPHILS PERCENT MAN 0 % (0-2); EOSINOPHILS PERCENT MAN 0 % (0-6); LYMPHOCYTES ABSOLUTE MAN 18.29 K/mm3 (0.84-5.20); LYMPHOCYTES PERCENT MAN 67 % (21-46); MONOCYTES ABSOLUTE MAN 0.81 K/mm3 (0.16-1.47); MONOCYTES PERCENT MAN 3 % (4-13); NEUTROPHILS ABSOLUTE MAN 8.19 K/mm3 (1.96-9.15); SEG NEUTROPHILS PERCENT MAN 27 % (41-73); TOTAL CELLS COUNTED 100
[2019-01-18 10:32] LABS: PCO2 Arterial 64.5 mmHg (35-45); PO2 Arterial 146 mmHg (80-100)
[2019-01-18 10:33] LABS: pH Blood Arterial 7.26 (7.35-7.45)
[2019-01-18 10:33] LABS: Alanine Aminotransfer (ALT/SGP 28 U/L (12-78); Albumin, Blood 2.9 g/dL (3.4-5.0); Albumin/Globulin Ratio 0.9 (0.8-1.8); Alk Phos 110 U/L (50-136); Anion Gap 4 mmol/L (6-16); Aspartate Aminotrans (AST/SGOT 16 U/L (12-37); Bilirubin, Total 0.7 mg/dL (0.1-1.0); Blood Urea Nitrogen 25 mg/dL (8-24); Bun/Creatinine Ratio 24.8 (12.0-20.0); CO2, Blood 31 mmol/L (21-32); Calcium, Blood 8.2 mg/dL (8.5-10.1); Chloride, Blood 100 mmol/L (98-108); Creatinine, Blood 1.01 mg/dL (0.60-1.20); Globulin, Blood 3.4 g/dL (2.2-4.0); Glomerular Filtration Rate >60 (60-); Glucose, Blood 147 mg/dL (70-99); Sodium, Blood 135 mmol/L (136-145); Total Protein, Blood 6.3 g/dL (6.4-8.2); Troponin I 0.019 ng/mL (0.000-0.040)
[2019-01-18] MEDS ORDERED: ELIQUIS5 MG PO (10:52)
--- NOTE | 2019-01-18 12:04 | NUR ---
PT NEW ADMIT AT 1145. ON BIPAP 27/02 SATTING IN MID 90S. HE IS ORIENTED TO SELF AND SPEAKING, NOT ORIENTED TO INSTRUCTIONS. TEMP WHITMAN IN PLACE DUE TO INCREASED WBC. DR SANCHEZ CAME IN TO SEE PT AND SPOKE WITH FAMILY ABOUT PROGNOSIS. FAMILY REMAINS AT BEDSIDE, URANIUM PROCESSING SUPERVISOR HERE WELL.
--- NOTE | 2019-01-18 12:47 | NUR ---
Echocardiogram completed.
--- NOTE | 2019-01-18 15:00 | NUR ---
NOTIFIED DR SANCHEZ OF PT'S TEMP, T-MAX 100.4. ORDER FOR TYLENOL SUPPOSITORY. ICE AND FAN USED AT THIS TIME.
[2019-01-18 15:35] LABS: Adenovirus Not Detected (NOT DETECT); Coronavirus 229E Not Detected (NOT DETECT)
[2019-01-18 15:36] LABS: Bordetella pertussis Not Detected (NOT DETECT); Chlamydophila pneumoniae Not Detected (NOT DETECT); Coronavirus HKU1 Not Detected (NOT DETECT); Coronavirus NL63 Not Detected (NOT DETECT); Coronavirus OC43 Not Detected (NOT DETECT); Human Metapneumovirus Detected (NOT DETECT); Human Rhinovirus/Enterovirus Not Detected (NOT DETECT); Influenza A Not Detected (NOT DETECT); Influenza A/2009-H1 Not Detected (NOT DETECT); Influenza A/H1 Not Detected (NOT DETECT); Influenza A/H3 Not Detected (NOT DETECT); Influenza B Not Detected (NOT DETECT); Mycoplasma pneumoniae Not Detected (NOT DETECT); Parainfluenza Virus 1 Not Detected (NOT DETECT); Parainfluenza Virus 2 Not Detected (NOT DETECT); Parainfluenza Virus 3 Detected (NOT DETECT); Parainfluenza Virus 4 Not Detected (NOT DETECT); Respiratory Syncytial Virus Not Detected (NOT DETECT)
--- NOTE | 2019-01-18 16:17 | NUR ---
TEMP CONTINUES TO INCREASE, SUPPOSITORY GIVEN. FAMILY AWARE. NO FURTHER NEEDS OR CONCERNS
--- NOTE | 2019-01-18 16:35 | NUR ---
ICE PACKS AND COOL RAGS APPLIED
[2019-01-18 17:57] LABS: Source, Urine Catheter
[2019-01-18 18:05] LABS: Bilirubin, Urine Neg (Neg); Blood, Urine 1+ (Neg); Glucose Qualitative, Urine Neg (Neg); Ketones, Urine Neg (Neg); Leukocyte Esterase, Urine Neg (Neg); Nitrite, Urine Neg (Neg); Protein, Urine Neg (Neg); Specific Gravity, Urine 1.015 (1.003-1.022); Urobilinogen, Urine NORM (Normal)
--- NOTE | 2019-01-18 18:28 | NUR ---
SHIFT SUMMARY: PT NEW ADMIT FROM THE ED. HAS BEEN ON BIPAP AT 14/7 WITH 35% FIO2. TYLENOL SUPPOSITORY GIVEN FOR FEVER WHICH HAS IMPROVED. 1L NS BOLUS GIVEN FOR DECREASED BP. CONTINUING TO MONITOR IN CASE CENTRAL LINE PLACEMENT IS NEEDED. FAMILY AT BEDSIDE. NO FURTHER NEEDS AT THIS TIME
[2019-01-18 18:32] LABS: Appearance, Urine Clear (Clear); Color, Urine Yellow (P-Yellow)
[2019-01-18 18:33] LABS: Amorphous Light (0-Heavy); Bacteria Rare /hpf; Red Blood Cells, Urine 0-2 /hpf (0-2); Squamous Epithelial Cells Rare /hpf (Few); White Blood Cells, Urine 0-2 /hpf (0-5)
--- NOTE | 2019-01-18 18:52 | NUR ---
DISCUSSED PT'S BP WITH DR SANCHEZ. ORDERS FOR SECOND FLUID BOLUS. PT'S SISTER AT BEDSIDE AND AWARE
--- NOTE | 2019-01-18 19:15 | NUR ---
ASSUMED CARE ASSUMED CARE OF PATIENT. REMAINS ON BIPAP 27/02, BUR 14, FIO2 30%. RESPIRATIONS EVEN AND UNLABORED. MONITOR SHOWS AFIB, RATE 80-90s. BP STABLE AT THIS TIME. NS BOLUS CONTINUES TO INFUSE. ORIENTED TO SELF AND FOLLOWS SIMPLE DIRECTIONS. SLOW VERBAL RESPONSE, BUT DOES ANSWER QUESTIONS APPROPRIATELY. ATTEMPTS TO ASSIST WITH REPOSITIONING. WHITMAN PATENT AND DRAINING CLEAR YELLOW URINE. FAMILY AT BEDSIDE. SEE SHIFT ASSESSMENT FOR FULL ASSESSMENT.
[2019-01-19 03:32] LABS: BASOPHILS ABSOLUTE AUTO 0.02 K/mm3 (0.00-0.23); BASOPHILS PERCENT AUTO 0 % (0-2); EOSINOPHILS PERCENT AUTO 0 % (0-6); Hemoglobin 12.1 g/dL (13.5-17.5); IMMATURE GRAN ABSOLUTE AUTO 0.07 K/mm3 (0.00-0.10); IMMATURE GRAN PERCENT AUTO 1 % (0-1); LYMPHOCYTES ABSOLUTE AUTO 9.29 K/mm3 (0.84-5.20); LYMPHOCYTES PERCENT AUTO 60 % (21-46); MONOCYTES ABSOLUTE AUTO 1.52 K/mm3 (0.16-1.47); MONOCYTES PERCENT AUTO 10 % (4-13); Mean Corpuscular HGB 28.6 pg (26.0-34.0); Mean Corpuscular Volume 92 fL (80-100); Mean Platelet Volume 10.8 fL (9.1-12.4); NEUTROPHILS ABSOLUTE AUTO 4.57 K/mm3 (1.96-9.15); NEUTROPHILS PERCENT AUTO 30 % (41-73); Platelet Count 132 K/mm3 (150-400); RDW Standard Deviation 54.8 fL (35.1-46.3); Red Blood Cell Count 4.23 M/mm3 (4.30-5.90); White Blood Cell Count 15.47 K/mm3 (4.00-11.30)
[2019-01-19 03:46] LABS: Anion Gap 6 mmol/L (6-16); Blood Urea Nitrogen 24 mg/dL (8-24); Bun/Creatinine Ratio 27.2 (12.0-20.0); CO2, Blood 30 mmol/L (21-32); Calcium, Blood 7.2 mg/dL (8.5-10.1); Chloride, Blood 104 mmol/L (98-108); Creatinine, Blood 0.88 mg/dL (0.60-1.20); Glomerular Filtration Rate >60 (60-); Glucose, Blood 155 mg/dL (70-99); Potassium, Blood 4.2 mmol/L (3.5-5.5); Sodium, Blood 140 mmol/L (136-145)
[2019-01-19 04:44] LABS: PO2 Arterial 65.8 mmHg (80-100); pH Blood Arterial 7.24 (7.35-7.45)
--- NOTE | 2019-01-19 05:10 | NUR ---
[facility] CRITICAL ABG RESULT CALLED TO DR. SANCHEZ- NEW ORDERS RECEIVED FOR BIPAP CHANGES. RT NOTIFIED OF ORDER TO INCREASE IPAP TO 16.
--- NOTE | 2019-01-19 06:32 | NUR ---
SHIFT SUMMARY NO ACUTE CHANGES DURING NOC. REMAINED ON BIPAP T/O NOC WITH MINIMAL (30-60 SECOND) BREAKS FOR ORAL CARE. O2 SATS DECREASED QUICKLY TO MID-70s WHEN BIPAP OFF. SLOW RECOVERY ONCE BIPAP IS BACK ON. BIPAP NOW 16/, BUR 14, FIO2 35%. MONITOR SHOWS AFIB, RATE 80-90s. BP STABLE. OPENS EYES TO ANY STIMULI. FOLLOWS SIMPLE COMMANDS. MOVES ALL EXTREMITIES WEAKLY. ORIENTED TO SELF AND TO PLACE ONLY. ASSISTS WITH REPOSITIONING. WHITMAN PATENT AND DRAINING TO GRAVITY. REMAINS NPO. NS INFUSING @ 100CC/HR PER ORDER. WILL REPORT TO DAY SHIFT RN WHEN AVAILABLE.
--- NOTE | 2019-01-19 07:33 | NUR ---
Recieved report from Ysabel NOLAN. Patient supine in bed with HOB at 30 degrees. He is on BIPAP 16/8 at 35% and sats low to mid 90%'s. He has 20ga RH IV and dressing intact and site WNL's and is flushed and SL'd. He also has 20ga IV in LAC dressing intact and site WNL's and is infusing Zosyn.. He is alert and oriented to self and answers questions very simply with mostly yes and no answers, He MAEW but weak. Dr Caba by and states if systolics stay up he may be transfered to PCU.
--- NOTE | 2019-01-19 09:30 | NUR ---
Patient continues on BIPAP same setting and sats low to mid 90%'s. Family at bedside. He continues NPO per Dr ventura. He has been transfered to PCU and awaitting a bed.
[2019-01-19 09:43] LABS: PCO2 Arterial 68.9 mmHg (35-45); PO2 Arterial 66.7 mmHg (80-100); pH Blood Arterial 7.26 (7.35-7.45)
--- NOTE | 2019-01-19 11:39 | NUR ---
Patient continues to rest with BIPAP in place with no changes in settings. Family has gone out for a little bit. No other significant changes.
[2019-01-19] MEDS ORDERED: AMIT50 PO (12:34)
[2019-01-19] MEDS ORDERED: LO-DOSE ASPIRIN81 MG PO (12:35)
--- NOTE | 2019-01-19 13:30 | NUR ---
No significant changes with patient, remains on BIPAP and has leaks from 30-100 and sats low to mid 90%'s. He remains in A-fib rate 80-100's. Family at bedside.
[2019-01-19 14:20] LABS: PCO2 Arterial 64.2 mmHg (35-45)
[2019-01-19 14:22] LABS: pH Blood Arterial 7.28 (7.35-7.45)
--- NOTE | 2019-01-19 16:10 | NUR ---
No family present. Prayer provided at bedside. Mr. Queen appears well cared-for but was non-responsive. I will remain available to pt and family.
--- NOTE | 2019-01-19 16:16 | NUR ---
ABG done and a little better. Dr Garnett states he can have minimal ICE with as little breaks as possible. Had family leave to allow him to rest again. No changes in BIPAP setting. Mask has been changed to to tear in nose bridge. Started [place].
--- NOTE | 2019-01-19 19:05 | NUR ---
SUMMARY Assumed care of pt at 1700 from Todd NOLAN. Pt has remained on BiPAP for since assumption of care until now. Tolerates BiPAP well. Occasionally moves mouth in chewing motion that creates leak and requires mask to be repositioned. Pt does not have teeth and wears BiPAP without dentures in place. BiPAP 18/8 and 35% FiO2. Pt is currently atrial fibrillation with rate between 115 and 125. Noted that pt takes PO cardizem at home. HR has been continuously trending upwards for last 24 hours per monitor. Call placed to Dr Caba at 1845 to update. Orders received for diltiazem drip.
[2019-01-20 03:33] LABS: Hemoglobin 11.6 g/dL (13.5-17.5); Mean Corpuscular HGB 29.3 pg (26.0-34.0); Mean Corpuscular HGB Conc 31.4 g/dL (31.5-36.5); Mean Corpuscular Volume 93 fL (80-100); Mean Platelet Volume 10.8 fL (9.1-12.4); Platelet Count 134 K/mm3 (150-400); RDW Coefficient Variation 16.4 % (11.7-14.2); RDW Standard Deviation 56.4 fL (35.1-46.3); Red Blood Cell Count 3.96 M/mm3 (4.30-5.90); White Blood Cell Count 15.57 K/mm3 (4.00-11.30)
[2019-01-20 03:48] LABS: Anion Gap 6 mmol/L (6-16); Blood Urea Nitrogen 25 mg/dL (8-24); Bun/Creatinine Ratio 28.7 (12.0-20.0); CO2, Blood 30 mmol/L (21-32); Calcium, Blood 7.7 mg/dL (8.5-10.1); Chloride, Blood 107 mmol/L (98-108); Creatinine, Blood 0.87 mg/dL (0.60-1.20); Glomerular Filtration Rate >60 (60-); Glucose, Blood 175 mg/dL (70-99); Potassium, Blood 4.3 mmol/L (3.5-5.5); Sodium, Blood 143 mmol/L (136-145)
[2019-01-20 04:13] LABS: BAND PERCENT MAN 11 % (0-8); BASOPHILS PERCENT MAN 0 % (0-2); EOSINOPHILS PERCENT MAN 0 % (0-6); LYMPHOCYTES PERCENT MAN 79 % (21-46); METAMYELOCYTE ABSOLUTE MAN 0.31 K/mm3 (0.00-0.00); METAMYELOCYTE PERCENT MAN 2 % (0-0); MONOCYTES ABSOLUTE MAN 0.15 K/mm3 (0.16-1.47); MONOCYTES PERCENT MAN 1 % (4-13); SEG NEUTROPHILS PERCENT MAN 7 % (41-73); TOTAL CELLS COUNTED 100
[2019-01-20 04:55] LABS: PCO2 Arterial 62.8 mmHg (35-45); PO2 Arterial 76.8 mmHg (80-100); pH Blood Arterial 7.31 (7.35-7.45)
--- NOTE | 2019-01-20 06:12 | NUR ---
NON-PRODUCTIVE COUGH: PT ATTEMPTED TO PRODUCE PHLEGM BUT WAS NOT ABLE TO. PT STATED, "I'VE NEVER BEEN ABLE TO". PT REMAINS PLEASANT AND COOPERATIVE. CARDIZEM GTT REMAINS AT 10mg/10mL/'. PT TOLERATING BIPAP VERY WELL. SETTINGS 18/, FiO2 40%.
--- NOTE | 2019-01-20 07:10 | NUR ---
ASSUMED CARE: PT RESTING IN BED, BIPAP AT 18/8, 45% FIO2. IV LAC GOT PULLED SO NEW IV TO BE STARTED. THIS RN ATTEMPTED TWICE, ANOTHER RN IN ROOM ATTEMPTING AT THIS TIME. DR HALEY IN TO SEE PT, STATES WE CAN ATTEMPT A DIET, INFORMED HIM PT HAS NOT BEEN TOLERATING BREAKS FOR VERY LONG. CARDIZEM GTT AT 10 MG/HR. HR 100S-1TEENS, ALTERNATES BETWEEN AFIB AND NSR. NO ACUTE NEEDS OR CHANGES A THIS TIME.
--- NOTE | 2019-01-20 07:44 | NUR ---
PT SATTING MID 90S ON 4L, GIVEN A BREAK FOR ORAL CARE. RT AT BEDSIDE AT THIS TIME. HR 106. PT STATES HE WANTS TO TRY TO EAT. WILL ORDER FULL LIQUID TRAY FOR NOW
--- NOTE | 2019-01-20 07:49 | NUR ---
PT DESATTED INTO 60S AFTER 10 MINUTE BREAK ON 4L. RT REPLACED BIPAP MASK
[2019-01-20 09:10] LABS: Vancomycin, Trough 13.7 ug/mL (5.0-10.0)
--- NOTE | 2019-01-20 14:31 | NUR ---
PALLIATIVE CARE NURSE SCARLET MADE AWARE OF CONSULT. DISCUSSED PT'S SITUATION WITH SCARLET. NO FURTHER NEEDS AT THIS TIME. QUILL CLEANER'S IN ROOM PERFORMING BEDBATH AT THIS TIME.
--- NOTE | 2019-01-20 15:30 | NUR ---
ASSISTED PT WITH SIP OF WATER AND HE STARTED COUGHING. SUCTION PROVIDED WITH THICK YELLOW SPUTUM. SPEECH EVAL ORDERED FOR WHEN PT IS SAFE TO START EATING.
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
--- NOTE | 2019-01-20 19:45 | NUR ---
OFF BIPAP/PO FLUIDS: PT REQUEST FOOD. PT TAKEN OF BIPAP AT 1940 AND ON 6L VIA N/C. PT HAS CONSUMED PUREED CHICKEN NOODLE SOUP, RICHARD ENSURE, AND SOME ICE WATER. TOLERATED UNTIL NOW AT 194. PT PLACED BACK ON BIPAP PER PT REQUEST. PT ABLE TO MOVE ITEMS AROUND ON NIGHT STAND SUCH HIS FAN AND CALL LIGHT. PT PLEASANT AND APPROPRIATE.
--- NOTE | 2019-01-20 23:16 | NUR ---
CARDIZEM TITRATE DOWN TO 5mg/hr: PT'S HR 70'S-100. CARDIZEM REDUCED TO 5mg/hr. WILL CONTINUE TO MONITOR AND TITRATE OFF IF ABLE.
--- NOTE | 2019-01-20 23:25 | NUR ---
CARDITYSONM gtt PAUSED: HR CONSISTENTLY 80'S-90'S. WILL CONTINUET TO MONITOR.
--- NOTE | 2019-01-21 00:55 | NUR ---
PT AWAKENS EASILY TO RN AT BEDSIDE. PT REPOSITIONED INTO HIGH FOWLERS POSITION, BIPAP REMOVED, N/C 6L APPLIED. PT GIVEN SEVERAL SIPS OF WATER. BIPAP REPLACED. PT CURRENTLY RESTING C/ EYES CLOSED. CARIZEM gtt REMAINS OFF. VSS. WILL CONTINUE TO MONITOR.
[2019-01-21 03:16] LABS: Hematocrit 36.3 % (37.0-53.0); Hemoglobin 11.2 g/dL (13.5-17.5); Mean Corpuscular HGB 28.8 pg (26.0-34.0); Mean Corpuscular HGB Conc 30.9 g/dL (31.5-36.5); Mean Corpuscular Volume 93 fL (80-100); Mean Platelet Volume 10.7 fL (9.1-12.4); Platelet Count 121 K/mm3 (150-400); RDW Coefficient Variation 16.7 % (11.7-14.2); RDW Standard Deviation 56.8 fL (35.1-46.3); Red Blood Cell Count 3.89 M/mm3 (4.30-5.90); White Blood Cell Count 10.08 K/mm3 (4.00-11.30)
[2019-01-21 03:31] LABS: Anion Gap 3 mmol/L (6-16); Blood Urea Nitrogen 25 mg/dL (8-24); Bun/Creatinine Ratio 30.7 (12.0-20.0); CO2, Blood 33 mmol/L (21-32); Calcium, Blood 7.9 mg/dL (8.5-10.1); Chloride, Blood 110 mmol/L (98-108); Creatinine, Blood 0.82 mg/dL (0.60-1.20); Glomerular Filtration Rate >60 (60-); Glucose, Blood 245 mg/dL (70-99); Potassium, Blood 4.2 mmol/L (3.5-5.5); Sodium, Blood 146 mmol/L (136-145)
--- NOTE | 2019-01-21 03:31 | NUR ---
PT AWAKENS REQUESTING SOMETHING TO EAT. PT GIVEN BREAK OFF BIPAP (N/C 6L APPLIED). PT CONSUMED 100% OF A CUP OF CHEESEY CRM OF MUSHROOM SOUP. BIPAP REAPPLIED ONCE PT DONE AND WHEN SATS REACHED 88%. BIPAP SETTINGS REMAIN 18/8, FiO2 35%. WILL CONTINUE TO MONITOR.
[2019-01-21 04:00] LABS: BAND PERCENT MAN 11 % (0-8); BASOPHILS PERCENT MAN 0 % (0-2); EOSINOPHILS PERCENT MAN 0 % (0-6); LYMPHOCYTES ABSOLUTE MAN 8.06 K/mm3 (0.84-5.20); LYMPHOCYTES PERCENT MAN 80 % (21-46); MONOCYTES PERCENT MAN 1 % (4-13); NEUTROPHILS ABSOLUTE MAN 1.91 K/mm3 (1.96-9.15); SEG NEUTROPHILS PERCENT MAN 8 % (41-73); TOTAL CELLS COUNTED 100
--- NOTE | 2019-01-21 04:00 | NUR ---
BREAK FROM BIPAP (N/C 6L APPLIED). PT CONSUMED 100% YOGURT. XRAY DONE. PT PASSING FLATUS BUT DENIES NEEDING TO HAVE BM. BIPAP REAPPLIED.
--- NOTE | 2019-01-21 07:45 | NUR ---
DR. HALEY IN TO SEE PATIENT, NEW ORDERS RECEIVED.
--- NOTE | 2019-01-21 07:54 | NUR ---
START OF SHIFT NOTE: PATIENT IS ON BIPAP 03/04/45 %, RT IN TO SEE PATIENT FiO2 DOWN TO 30 %, PATIENT SATING AT 98 %, PATIENT IS AWAKE, ALERT AND ORIENTED, LUNG SOUNDS ARE TIGHT AND WHEEZY, PATIENT HAS PRODUCTIVE COUGH, PATIENT IS IN A-FIB WITH HR ABOUT 80'S TO 100'S AT THIS TIME, CARDIZEM HAS BEEN OFF SINCE 2300 HOURS 01-20-19, PATIENT DENIES ANY PAIN, REPORTS NO CHEST PAIN/PRESSURE, AFEBRILE, PATIENT C/O BEING HOT AND SWEATY, FAN AT BEDSIDE, HEAT ON BIPAP TURNED OFF, PATIENT HAS HYPOACTIVE BOWEL TONES IN ALL FOUR QUADRANTS, WHITMAN CATHETER WITH TEMP PROBE DRAINING CLEAR YELLOW URINE, PATIENT IS COOPERATIVE AND FOLLOWS COMMANDS, EATING BREAKFAST AT THIS TIME, CALL LIGHT IN REACH, WILL CONTINUE TO MONITOR.
--- NOTE | 2019-01-21 08:32 | NUR ---
SPEECH THERAPY IN TO SEE PATIENT, PATIENT WAS ABLE TO SWALLOW LARGE MUCINEX PILL WITH PUDDING, PATIENT PLACED ON BEDPAN, FELT URGE FOR BM, CALL LIGHT IN REACH, WILL CONTINUE TO MONITOR.
--- NOTE | 2019-01-21 08:34 | NUR ---
PATIENT WAS OFF BIPAP FOR 30 MINUTES, AND ON 10L NC AND O2 SATS DROPPED TO UPPER 80'S WHILE EATING AND LOW 90'S WHEN AT REST, PLACED BACK ON BIPAP AFTER BREAKFAST.
--- NOTE | 2019-01-21 09:30 | NUR ---
DR. COLÓN IN TO SEE PATIENT, RT IN WELL, PLACING PATIENT ON AIRVO, NO NEW ORDERS RECEIVED AT THIS TIME, CALL LIGHT IN REACH, WILL CONTINUE TO MONITOR.
--- NOTE | 2019-01-21 12:22 | NUR ---
PATIENT WAS ON AIRVO MONITORED BY RT TEJAS, PLACED BACK ON BIPAP 30 % AT 11:50 D/T PATIENT INCREASED USE OF ACCESSORY MUSCLES AND LABORED BREATHING.
--- NOTE | 2019-01-21 12:28 | NUR ---
PATIENT TRYING TO REST AT THIS TIME, DENIES PAIN, REPORTS NO CHEST PAIN/PRESSURE, CALL LIGHT IN REACH, WILL CONTINUE TO MONITOR.
--- NOTE | 2019-01-21 13:19 | NUR ---
PATIENT UP TO CHAIR VIA CEILING LIFT WITH 3 ASSIST, PATIENT TOLERATED WELL, TOOK AFTERNOON MEDICATION WITH APPLESAUCE AND SIPS OF WATER, POSITIONED FOR COMFORT, CALL LIGHT IN REACH, WILL CONTINUE TO MONITOR.
--- NOTE | 2019-01-21 14:58 | NUR ---
PATIENT RESTING COMFORTABLY IN CHAIR APPEARS TO BE SLEEPING, EASILY AROUSEABLE, BIPAP IN USE, SETTINGS ARE 18/8/30%, TOLERATING WELL, CALL LIGHT IN REACH, WILL CONTINUE TO MONITOR.
--- NOTE | 2019-01-21 16:21 | NUR ---
PATIENT PLACED ON AIRVO, STATED "I AM HUNGRY", ON AIRVO 60L/MIN, 41 %, PATIENT IS EATING APPLESAUCE AND PUDDING, DINNER WILL ARRIVE SOON, PATIENT EXPRESSED WISH TO STAY IN CHAIR, STATED "I FEEL BETTER UP IN THIS CHAIR", CALL LIGHT IN REACH, WILL CONTINUE TO MONITOR.
--- NOTE | 2019-01-21 17:55 | NUR ---
SHIFT SUMMARY NOTE: NO EVENTS DURING THIS SHIFT, PATIENT CONTINUES TO BE UP IN CHAIR, STATES "I BREATHE BETTER IN THE CHAIR", PATIENT ATE 100 % OF HIS MEALS, EATS INDEPENDENTLY AFTER SET UP, PATIENT WAS ON BIPAP AT START OF SHIFT WTH SETTINGS OF 18/8/30%, BUT WAS CHANGED OVER TO AIRVO AT 60 L/MIN AT 41 %, PATIENT TOLERATING EXTREMELY WELL, PATIENT IS ALERT AND ORIENTED, LUNG SOUNDS ARE TIGHT WITH WHEEZES, PATIENT HAS PRODUCTIVE COUGH WITH MODERATE AMOUNT OF THICK BARTON SPUTUM, PATIENT SWALLOWS SPUTUM MOST OF TIME, PATIENT IS IN A-FIB WITH HR IN 80'S TO 100'S, BOWEL TONES PRESENT, HAD ONE EXTRA LARGE BM DURING THIS SHIFT, WHITMAN CATHETER WITH TEMP PROBE IN PLACE, DRAINING DARK YELLOW URINE, PATIENT HAS THIGH HIGH NEIL HOSE ON, DENIED PAIN DURING ENTIRE SHIFT, REPORTED NO CHEST PAIN/PRESSURE, AFEBRILE, FOR DETAILS SEE SHIFT ASSESSMENT DOCUMENTATION AND NURSES NOTES, CALL LIGHT IN REACH, WILL CONTINUE TO MONITOR AND GIVE REPORT TO ONCOMING SKIING TEACHER.
--- NOTE | 2019-01-21 19:00 | NUR ---
ASSUMED CARE ASSUMED CARE OF PATIENT. UP IN CHAIR, BUT REQUESTING TO GO BACK TO BED. INCONTINENT OF SOFT STOOL. ORIENTED TO SELF AND TO PLACE. FOLLOWS DIRECTIONS/COMMANDS. MOVES ALL EXTREMITIES WEAKLY. DENIES C/O PAIN AT THIS TIME. REMAINS ON AIRVO 60L/41% FIO2. RESPIRATIONS EVEN AND UNLABORED AT REST. OCCASIONAL PRODUCTIVE COUGH- PT SWALLOWS SPUTUM. DENIES C/O SOB AT THIS TIME. MONITOR SHOWS AFIB, RATE 90-110. BP STABLE. WHITMAN PATENT AND DRAINING TO GRAVITY. NS INFUSING @ 75CC/HR PER ORDER. SEE SHIFT ASSESSMENT FOR FULL ASSESSMENT.
[2019-01-22 03:38] LABS: Hematocrit 36.7 % (37.0-53.0); Hemoglobin 11.1 g/dL (13.5-17.5); Mean Corpuscular HGB 29.3 pg (26.0-34.0); Mean Corpuscular HGB Conc 30.2 g/dL (31.5-36.5); Mean Platelet Volume 10.6 fL (9.1-12.4); Platelet Count 124 K/mm3 (150-400); RDW Standard Deviation 61.1 fL (35.1-46.3); Red Blood Cell Count 3.79 M/mm3 (4.30-5.90); White Blood Cell Count 12.65 K/mm3 (4.00-11.30)
[2019-01-22 03:48] LABS: Mean Corpuscular Volume 97 fL (80-100)
[2019-01-22 04:00] LABS: Albumin, Blood 2.1 g/dL (3.4-5.0); Anion Gap 2 mmol/L (6-16); Blood Urea Nitrogen 24 mg/dL (8-24); Bun/Creatinine Ratio 30.1 (12.0-20.0); CO2, Blood 34 mmol/L (21-32); Chloride, Blood 109 mmol/L (98-108); Glomerular Filtration Rate >60 (60-); Glucose, Blood 256 mg/dL (70-99); Phosphorus, Blood 1.9 mg/dL (2.5-4.9); Potassium, Blood 4.7 mmol/L (3.5-5.5); Sodium, Blood 145 mmol/L (136-145)
[2019-01-22 04:38] LABS: BAND PERCENT MAN 16 % (0-8); BASOPHILS PERCENT MAN 0 % (0-2); EOSINOPHILS PERCENT MAN 0 % (0-6); LYMPHOCYTES PERCENT MAN 72 % (21-46); MONOCYTES ABSOLUTE MAN 0.25 K/mm3 (0.16-1.47); MONOCYTES PERCENT MAN 2 % (4-13); NEUTROPHILS ABSOLUTE MAN 3.28 K/mm3 (1.96-9.15); SEG NEUTROPHILS PERCENT MAN 10 % (41-73); TOTAL CELLS COUNTED 100
--- NOTE | 2019-01-22 06:10 | NUR ---
HYPERGLYCEMIA CALL TO DR. COLÓN REGARDING CBG >200- NEW ORDERS RECEIVED FOR INSULIN S/S. ALSO NOTIFIED OF PHOSPHOROUS 1.9- NEW ORDERS RECEIVED FOR [facility] IVPB.
--- NOTE | 2019-01-22 06:22 | NUR ---
SHIFT SUMMARY NO ACUTE CHANGES DURING NOC. SLEPT WELL WHEN UNDISTURBED. ROUSES EASILY TO STIMULI. ASSISTS WITH REPOSITIONING. REMAINED ON AIRVO T/O NOC- 60L/41% FIO2. RESPIRATIONS EVEN AND UNLABORED AT REST. DYSPNEA NOTED WITH EXERTION. MOIST COUGH, OCCASIONALLY PRODUCTIVE, BUT PT SWALLOWS SPUTUM. MONITOR SHOWS AFIB T/O SHIFT, RATE 90-120s. BP STABLE. TAKING SIPS OF H20 WITHOUT DIFFICULTY. DENIES NAUSEA. WHITMAN PATENT AND DRAINING TO GRAVITY. NS INFUSING @ 75CC/HR PER ORDER. WILL REPORT TO DAY SHIFT RN WHEN AVAILABLE.
--- NOTE | 2019-01-22 07:15 | NUR ---
START OF SHIFT NOTE: RECEIVED REPORT FROM REJI JORGE RN, ASSUMED CARE, PATIENT IS LYING IN BED AWAKE ON AIRVO AT 41 % AT 60 L/MIN, ALERT AND ORIENTED, DENIES PAIN, REPORTS NO CHEST PAIN/PRESSURE, STATES THAT HE IS "FEELING BETTER AND BREATHING EASIER", CONTINUES TO HAVE A PRODUCTIVE COUGH WITH MODERATE SPUTUM PRODUCTION, NOW ON LOW SLIDING SCALE D/T STEROID INJECTIONS, BG THIS AM AT 202, RECEIVED 2 UNITS OF HUMULIN, LUNG SOUNDS ARE COARSE AND DMINISHED, PATIENT CONTINUES IN A-FIB, WITH HR IN 90'S TO LOW 100'S, PO CARDIZEM STARTED BY DR. HALEY WHO WAS IN TO SEE PATIENT, ALSO HAS K-PHOS INFUSING AT THIS TIME, LAB IN TO DRAW VANCO TROUGH, BOWEL TONES PRESENT IN ALL FOUR QUADRANTS, WHITMAN CATHETER IN PLACE, WILL RESTART FLOMAX PER DR. HALEY AND D/C ANTONETTE, PATIENT IS EATING BREAKFAST AFTER HAVING TRAY SET UP, PATIENT IS AT A 90 DEGREE ANGLE PER SPEECH THERAPY, CALL LIGHT IN REACH, WILL CONTINUE TO MONITOR.
[2019-01-22 08:44] LABS: Vancomycin, Trough 17.6 ug/mL (5.0-10.0)
--- NOTE | 2019-01-22 09:29 | NUR ---
DR. COLÓN IN TO SEE PATIENT, NO NEW ORDERS RECEIVED.
--- NOTE | 2019-01-22 16:44 | NUR ---
WHITMAN CATHETER REMOVED ORDERED, PATIENT TOLERATED WELL, URINAL GIVEN TO PATIENT, PATIENT VERBALIZED UNDERSTANDING, CALL LIGHT IN REACH, WILL CONTINUE TO MONITOR.
--- NOTE | 2019-01-22 17:55 | NUR ---
SHIFT SUMMARY NOTE: PATIENT CONTINUES TO IMPROVE, ON AIRVO ALL THIS SHIFT, 41 % 60L/MIN, PATIENT TOLERATING WELL, LUNG SOUNDS COARS WITH SOME WHEEZES BUT OVERALL IMPROVED AIR MOVEMENT AUDIBLE, IN A-FIB WITH HR IN LOW 100'S, UP TO 120'S WHEN EATING, DR. COLÓN AWARE, PO CARDIZEM WAS RESTARTED THIS AM, PATIENT TAKING PILLS WELL WITH APPLESAUCE, EATS ALL OF HIS PUREED MEALS INDEPENDENTLY AFTER TRAY SET UP, BOWEL TONES PRESENT IN ALL FOUR QUADRANTS, PATIENT HAD 2 BM'S TODAY, ONE EXTRA LARGE AND ONE SMALL, WHITMAN CATHETER REMOVED ORDERED, FLOMAX PO WAS RESTARTED WELL THIS AM, PATIENT HAS URINAL AT SCROTUM, STATED "HE FEELS COMFORTABLE TO BE READY", THIGH HIGH NEIL HOSE IN PLACE, FOR DETAILS SEE SHIFT ASSESSMENT DOCUMENTATION AND NURSES NOTES, CALL LIGHT IN REACH, WILL CONTINUE TO MONITOR.
--- NOTE | 2019-01-22 19:00 | NUR ---
ASSUMED CARE ASSUMED CARE OF PATIENT. AWAKE AND ALERT. ORIENTED TO SELF AND PLACE. FOLLOWS DIRECTIONS. ANSWERS QUESTIONS APPROPRIATELY. SPEECH IS GARBLED AT TIMES. TACHYPNEA/DYSPNEA NOTED WITH MINIMAL EXERTION. OCCASIONAL MOIST COUGH- PRODUCTIVE AT TIMES, BUT PT OFTEN SWALLOWS SPUTUM. REMAINS ON AIRVO- 55L/40% FIO2. MONITOR SHOWS AFIB, RATE 100-120. BP STABLE. INCONTINENT OF URINE X 1. DENIES C/O PAIN OR DISCOMFORT. NS INFUSING @ 75CC/HR PER ORDER. SEE SHIFT ASSESSMENT FOR FULL ASSESSMENT.
[2019-01-23 03:42] LABS: Hematocrit 36.1 % (37.0-53.0); Hemoglobin 10.8 g/dL (13.5-17.5); Mean Corpuscular HGB Conc 29.9 g/dL (31.5-36.5); Mean Corpuscular Volume 97 fL (80-100); Mean Platelet Volume 10.3 fL (9.1-12.4); Platelet Count 117 K/mm3 (150-400); RDW Coefficient Variation 16.9 % (11.7-14.2); RDW Standard Deviation 60.4 fL (35.1-46.3); Red Blood Cell Count 3.72 M/mm3 (4.30-5.90); White Blood Cell Count 13.78 K/mm3 (4.00-11.30)
[2019-01-23 03:56] LABS: Albumin, Blood 2.1 g/dL (3.4-5.0); Anion Gap 1 mmol/L (6-16); Blood Urea Nitrogen 21 mg/dL (8-24); Bun/Creatinine Ratio 31.4 (12.0-20.0); CO2, Blood 35 mmol/L (21-32); Calcium, Blood 7.9 mg/dL (8.5-10.1); Chloride, Blood 108 mmol/L (98-108); Creatinine, Blood 0.67 mg/dL (0.60-1.20); Glomerular Filtration Rate >60 (60-); Glucose, Blood 224 mg/dL (70-99); Magnesium, Blood 2.4 mg/dL (1.6-2.4); Phosphorus, Blood 2.3 mg/dL (2.5-4.9); Potassium, Blood 4.7 mmol/L (3.5-5.5); Sodium, Blood 144 mmol/L (136-145)
[2019-01-23 04:05] LABS: BAND PERCENT MAN 7 % (0-8); BASOPHILS PERCENT MAN 0 % (0-2); EOSINOPHILS PERCENT MAN 0 % (0-6); LYMPHOCYTES ABSOLUTE MAN 9.23 K/mm3 (0.84-5.20); LYMPHOCYTES PERCENT MAN 67 % (21-46); MONOCYTES ABSOLUTE MAN 0.13 K/mm3 (0.16-1.47); MONOCYTES PERCENT MAN 1 % (4-13); SEG NEUTROPHILS PERCENT MAN 25 % (41-73); TOTAL CELLS COUNTED 100
--- NOTE | 2019-01-23 06:33 | NUR ---
SHIFT SUMMARY NO ACUTE CHANGES DURING NOC. SLEPT INTERMITTENTLY WHEN UNDISTURBED. ROUSES EASILY TO STIMULI. DENIED C/O PAIN T/O NOC. REPOSITIONS SELF IN BED. INCONTINENT OF URINE X 1, OTHERWISE USES URINAL FREQUENTLY FOR SMALL AMOUNTS OF URINE. NS INFUSING @ 75CC/HR PER ORDER. REMAINED IN AFIB, RATE 100-120s. BP STABLE. AFEBRILE. REMAINS ON AIRVO 55L'40% FIO2. TACHYPNEA/DYSPNEA WITH EXERTION. FREQUENT MOIST COUGH. WILL REPORT TO DAY SHIFT RN WHEN AVAILABLE.
--- NOTE | 2019-01-23 07:50 | NUR ---
START OF SHIFT NOTE: RECEIVED REPORT FROM REJI JORGE RN, ASSUMED CARE, PATIENT IS AWAKE, ALERT AND ORIENTED,DENIES PAIN, AFEBRILE, CONTINUES ON AIRVO AT 41 % 60L/MIN, LUNG SOUNDS ARE COARSE AND EXPIRATORY WHEEZES AT TIMES, APPEARS SLIGHTLY MORE DYSPNEIC AND TACHYPNEIC WITH SLIGHTEST EXERTION BUT ALSO APPEARS TO BE RECOVERING FASTER, O2 SATURATIONS IN MID 90'S, PATIENT IN A-FIB WITH HR BETWEEN LOW 100'S TO 120', BOWEL TONES PRESENT IN ALL FOUR QUADRANTS, USES URINAL, HAS IT LYING BETWEEN LEGS AND USES IT APPROPRIATELY, GOOD URINE OUTPUT, DR. HALEY IN TO SEE PATIENT, NO NEW ORDERS RECEIVED, CALL LIGHT IN REACH, WILL CONTINUE TO MONITOR,
--- NOTE | 2019-01-23 09:19 | NUR ---
DR. COLÓN IN TO SEE PATIENT, STATUS WAS CHANGED BACK TO ICU FROM PCU.
--- NOTE | 2019-01-23 14:30 | NUR ---
PATIENT WAS OBSERVED TO HAVE O2 SATURATION OF ONLY 82 %, AIRVO SETTINGS INCREASED TO 65 % AND 55L/MIN, RT NOTIFIED, RT WILL START ORDERED MUCOMYST TREATMENT, CALL LIGHT IN REACH, WILL CONTINUE TO MONITOR.
--- NOTE | 2019-01-23 14:40 | NUR ---
PATIENT'S SISTER ON PHONE, UPDATE ON PATIENT CONDITION GIVEN.
[2019-01-23 16:58] LABS: Source, Urine Catheter
--- NOTE | 2019-01-23 17:06 | NUR ---
PATIENT STARTED TO EXPERIENCE RESPIRATORY DISTRESS WITH SLIGHTEST EXERTION ABOUT 16:00 HOURS AND WAS UNABLE TO KEEP O2 SATURATION ABOVE 82 % ON AIRVO, PLACED BACK ON BIPAP, SETTINGS 18/8/30 %, DR. COLÓN NOTIFIED, ORDER WAS GIVEN FOR INSERTION OF WHITMAN CATHETER AND 20 MG LASIX IV BY DR. COLÓN, RT IN TO MONITOR PATIENT ON BIPAP, WHITMAN CATHETER WAS INSERTED 16 FR WITH LIDOCAINE, PATIENT TOLERATED WELL, UA SENT PER PROTOCOL, LASIX 20 MG IV WAS GIVEN, PATIENT PLACED ON BEDPAN, TOLERATING BIPAP WELL, CALL LIGHT IN REACH, WILL CONTINUE TO MONITOR.
[2019-01-23 17:10] LABS: Bilirubin, Urine Neg (Neg); Blood, Urine 5+ (Neg); Glucose Qualitative, Urine 2+ (Neg); Ketones, Urine Neg (Neg); Leukocyte Esterase, Urine Neg (Neg); Nitrite, Urine Neg (Neg); Protein, Urine 2+ (Neg); Specific Gravity, Urine 1.015 (1.003-1.022); Urobilinogen, Urine NORM (Normal)
[2019-01-23 17:38] LABS: Appearance, Urine Hazy (Clear); Color, Urine Yellow (P-Yellow)
--- NOTE | 2019-01-23 17:55 | NUR ---
SHIFT SUMMARY NOTE: PATIENT REMAINED ON AIRVO 55L/MIN 49 % MOST OF DAY SHIFT, BUT BECAME INCREASINGLY MORE SHORT OF BREATH WITH SLIGHTEST EXERTION, LIKE USING HIS URINAL, O2 SATS DROPPED TO LOW 80'S, DR. COLÓN WAS NOTIFIED, PATIENT WAS PLACED ON BIPAP, SETTINGS 18/8/30 % AND RECEIVED 20 MG LASIX IV, IVF'S HAD BEEN STOPPED EARLIER DURING THIS SHIFT, ALSO ORDER WAS GIVEN TO REINSERT WHITMAN CATHETER FOR URINARY RETENTION, UA WAS SENT, PATIENT HAD 900 CC'S OF LIGHT YELLOW CLEAR URINE OUT WITHIN ONE HOUR, O2 SATS ARE NOW IN MID 90'S AND HR IS BETWEEN 110'S AND 140'S, DR. COLÓN AWARE, INCREASE PO CARDIZEM WHICH PATIENT TAKES WITH PUDDING, REMAINS IN A-FIB, FOR DETAILS SEE SHIFT ASSESSMENT DOCUMENTATION AND NURSES NOTES, CALL LIGHT IN REACH, WILL CONTINUE TO MONITOR AND GIVE REPORT TO ONCOMING SAMPLE STITCHER.
[2019-01-23 18:05] LABS: Bacteria Few /hpf; Mucus Light (0-Heavy); Red Blood Cells, Urine TNTC /hpf (0-2); Squamous Epithelial Cells Rare /hpf (Few); White Blood Cells, Urine Rare /hpf (0-5)
--- NOTE | 2019-01-23 19:58 | NUR ---
[place] of Care: Patient alert and oriented to self and place, confused to time/date. Denies pain, discomfort, SOB, or dyspnea. VSS, O2-96% on BiPAP 18/8/35%. Tolerating BiPAP without difficulty, plan to give breaks from mask (with high-flow NC) as tolerated. Peripheral IV's patent and intact, dressing changed to rt wrist IV at this time. Guzman cath patent and intact, draining light yellow clear urine. Call light in reach, makes needs known. Will continue to monitor for pain, comfort, safety.
[2019-01-24 03:29] LABS: BASOPHILS ABSOLUTE AUTO 0.02 K/mm3 (0.00-0.23); BASOPHILS PERCENT AUTO 0 % (0-2); EOSINOPHILS PERCENT AUTO 0 % (0-6); Hematocrit 36.6 % (37.0-53.0); IMMATURE GRAN ABSOLUTE AUTO 0.07 K/mm3 (0.00-0.10); IMMATURE GRAN PERCENT AUTO 1 % (0-1); LYMPHOCYTES ABSOLUTE AUTO 9.05 K/mm3 (0.84-5.20); LYMPHOCYTES PERCENT AUTO 68 % (21-46); MONOCYTES ABSOLUTE AUTO 0.62 K/mm3 (0.16-1.47); MONOCYTES PERCENT AUTO 5 % (4-13); Mean Corpuscular HGB 28.9 pg (26.0-34.0); Mean Corpuscular HGB Conc 30.1 g/dL (31.5-36.5); Mean Corpuscular Volume 96 fL (80-100); Mean Platelet Volume 10.3 fL (9.1-12.4); NEUTROPHILS ABSOLUTE AUTO 3.61 K/mm3 (1.96-9.15); NEUTROPHILS PERCENT AUTO 27 % (41-73); Platelet Count 117 K/mm3 (150-400); RDW Coefficient Variation 16.3 % (11.7-14.2); RDW Standard Deviation 58.2 fL (35.1-46.3); White Blood Cell Count 13.37 K/mm3 (4.00-11.30)
[2019-01-24 03:44] LABS: Anion Gap 0 mmol/L (6-16); Blood Urea Nitrogen 18 mg/dL (8-24); Bun/Creatinine Ratio 26.6 (12.0-20.0); CO2, Blood 41 mmol/L (21-32); Chloride, Blood 102 mmol/L (98-108); Creatinine, Blood 0.68 mg/dL (0.60-1.20); Glomerular Filtration Rate >60 (60-); Glucose, Blood 186 mg/dL (70-99); Phosphorus, Blood 2.7 mg/dL (2.5-4.9); Sodium, Blood 143 mmol/L (136-145)
--- NOTE | 2019-01-24 06:17 | NUR ---
Shift Summary: Patient slept on/off throughout shift. Continues to deny pain, discomfort, SOB, or dyspnea. VSS, O2- 94-98% on High-flow NC (Airvo) at 55 L/min, 55% FiO2. No need for BiPAP mask following evening medication administration. Peripheral IV's x2 remain patent and intact. Guzman cath patent and intact, draining light yellow clear urine, approx- 3L output this shift. Call light in reach, makes needs known. Will continue to monitor until report to day shift RN.
--- NOTE | 2019-01-24 07:15 | NUR ---
ASSUMED CARE ASSUMED CARE OF PT AT 0700. REPORT RECEIVED FROM OVIDIO GARBER. PT IN BED, AROUSES EASILY TO VERBAL STIMULUS. PT ORIENTED TO SELF, FOLLOWING DIRECTIONS, AND KNOWS HE IS IN THE HOSPITAL. PT APPEARS SOMEWHAT DYSPNEIC WITH MINIMAL EXERTION SUCH TALKING. PT WEARING AIRVO WITH 55L/MIN FLOW AND 50% FIO2, SPO2 LOW 90'S. MONITOR SHOWS A FIB WITH HR 120'S-130'S, BP STABLE. PT DENIES FEELING SHORT OF BREATH BUT WHEN QUESTIONED FURTHER STATES "I'M STILL A LITTLE WHEEZY THOUGH". LUNG SOUNDS DIMINISHED AND COARSE WITH SOME EXPIRATORY WHEEZES NOTED. PT DENIES NAUSEA. ABDOMEN SOFT, NON TENDER. PT HAS WHITMAN CATH IN PLACE DRAINING CLEAR YELLOW URINE TO GRAVITY. PIV WITH NS TKO. WILL CONTINUE TO MONITOR PT.
--- NOTE | 2019-01-24 07:26 | NUR ---
DR. TERA HALEY ROUNDED ON PT. PLAN TO GIVE 1 TIME DOSE OF LASIX THIS AM. OTHERWISE CONTINUE WITH PLAN OF CARE WITH PULMONOLOGY INPUT.
[2019-01-24 09:37] LABS: Vancomycin, Trough 17.9 ug/mL (5.0-10.0)
--- NOTE | 2019-01-24 16:50 | NUR ---
1500: CARE ASSUMED, PT RESTING IN BED, HR 110'130, SPO2 90-94% ON AIRVO 55L FIO2 40%. PT DENIES SOB, CP/PRESSURE AT THIS TIME. PT PLEASANT, FOLLOWS DIRECTIONS, IS APPROPRIATE BUT FORGETFUL. DENIES NEEDS AT THIS TIME. 1630: PO MEDICATIONS TOLERATED WELL IN PUDDING WHILE SITTING AT 90 DEGREES, NO DESAT DURING PO INTAKE. LS DIMINISHED T/O WITH COARSE LS IN THE LLL, PT HAS LOOSE COUGH WITH SPUTUM, ENCOURAGED TO COUGH AND DEEP BREATHE. VS REMAIN UNCHANGED. 1700: SNACK GIVEN PER PT REQUEST, THIS RN ASSISTED WITH ORAL INTAKE, PT TOLERATED WELL WITH ASSISTANCE. NO DESAT.
--- NOTE | 2019-01-24 18:48 | NUR ---
1845: PT TOLERATED DINNER WELL, NO CHOKING, ORAL CARE PERFORMED AFTER MEAL FINISHED, ASSISTED TO USE FLUTTER VALVE. PT DENIES C/O, SPO2 >90% ON AIRVO WITH SETTINGS UNCHANGED. HOB LOWERED PER PT REQUEST, PT STATES HE IS GOING TO TAKE A NAP. HR 110'S-130, PT DENIES CHEST PAIN/PRESSURE OR SOB. URINE OUTPUT >4.5 L THIS SHIFT. REPORT TO ONCOMING SHIFT.
--- NOTE | 2019-01-24 19:55 | NUR ---
PATIENT RESTING QUIETLY WITH AIRVO IN PLACE SET AT 55L FIO2 40%. APPEARS SOB BUT PATIENT DENIES FEELING SOB. OCCASIONAL MOIST COUGH. BIPAP AVAILABLE IF NEEDED. PATIENT UNSURE OF DATE, BUT ANSWERING ALL OTHER QUESTIONS APPROPRIATELY. SPEECH DIFFICULT TO UNDERSTAND AT TIMES DUE TO GARBLED SPEECH AT TIMES. MOVING SELF IN BED WITH MIN ASSISTANCE. MONITOR CONTINUES TO SHOW AFIB WITH HR 110-120'S
--- NOTE | 2019-01-25 03:33 | NUR ---
0200: PATIENT C/O RAMIRES AND DIFFICULTY SLEEPING, DOCTOR RAKAN NOTIFIED AND ORDER OBTAINED FOR PO TYLENOL. PATIENT VERBALIZED GOOD PAIN RELIEF, CONTINUES TO HAVE DIFFICULTY SLEEPING.
[2019-01-25 03:37] LABS: BASOPHILS ABSOLUTE AUTO 0.02 K/mm3 (0.00-0.23); BASOPHILS PERCENT AUTO 0 % (0-2); EOSINOPHILS PERCENT AUTO 0 % (0-6); Hematocrit 35.3 % (37.0-53.0); Hemoglobin 10.9 g/dL (13.5-17.5); IMMATURE GRAN ABSOLUTE AUTO 0.06 K/mm3 (0.00-0.10); IMMATURE GRAN PERCENT AUTO 0 % (0-1); LYMPHOCYTES ABSOLUTE AUTO 10.17 K/mm3 (0.84-5.20); LYMPHOCYTES PERCENT AUTO 72 % (21-46); MONOCYTES ABSOLUTE AUTO 0.21 K/mm3 (0.16-1.47); MONOCYTES PERCENT AUTO 2 % (4-13); Mean Corpuscular HGB 28.6 pg (26.0-34.0); Mean Corpuscular HGB Conc 30.9 g/dL (31.5-36.5); Mean Corpuscular Volume 93 fL (80-100); Mean Platelet Volume 10.6 fL (9.1-12.4); NEUTROPHILS ABSOLUTE AUTO 3.61 K/mm3 (1.96-9.15); NEUTROPHILS PERCENT AUTO 26 % (41-73); Platelet Count 117 K/mm3 (150-400); RDW Coefficient Variation 15.6 % (11.7-14.2); RDW Standard Deviation 53.3 fL (35.1-46.3); Red Blood Cell Count 3.81 M/mm3 (4.30-5.90); White Blood Cell Count 14.07 K/mm3 (4.00-11.30)
[2019-01-25 03:54] LABS: Albumin, Blood 2.3 g/dL (3.4-5.0); Blood Urea Nitrogen 19 mg/dL (8-24); Bun/Creatinine Ratio 32.4 (12.0-20.0); Calcium, Blood 7.9 mg/dL (8.5-10.1); Chloride, Blood 96 mmol/L (98-108); Creatinine, Blood 0.59 mg/dL (0.60-1.20); Glomerular Filtration Rate >60 (60-); Glucose, Blood 259 mg/dL (70-99); Phosphorus, Blood 1.8 mg/dL (2.5-4.9); Potassium, Blood 3.9 mmol/L (3.5-5.5); Sodium, Blood 143 mmol/L (136-145)
[2019-01-25 04:11] LABS: Anion Gap 4 mmol/L (6-16); CO2, Blood 43 mmol/L (21-32)
--- NOTE | 2019-01-25 05:50 | NUR ---
SUMMARY PATIENT AWAKE MOST OF THE NIGHT. AIRVO REMAINS IN PLACE SET AT 55L FIO2 40%. PATIENT CARMINE WELL WITH BIOX RANGING 89-92% CONTINUES TO BE SOB WITH SLIGHT ACTIVITY AND TALKING. PATIENT DIDN'T USE BIPAP LAST NIGHT. SLIGHT CONFUSION CONTINUES, REMEMBERING PERSON AND PLACE BUT CONTINUES TO BE UNSURE OF DATE. PATIENT REPOSITIONING SELF IN BED, NOT WANTING TO LAY ON HIS SIDE DUE TO FEELING MORE SOB ON HIS SIDE. WHITMAN CONTINUES TO DRAIN LARGE AMT OF CLEAR YELLOW URINE. PATIENT CARMINE PO WITHOUT DIFFICULTY, TAKING PILLS WITH PUDDING AND NOT USING STRAW IN HIS WATER. AFIB CONTINUES WITH HEART RATE MOSTLY IN THE 110-130'S UP TO 140'S WITH ACTIVITY.
--- NOTE | 2019-01-25 08:03 | NUR ---
ASSUMED CARE / DR. HALEY: REPORT RECEIVED FROM HECTOR Levi RN. ASSUMED CARE OF THIS PT AT APPROX 0700. ON ASSESSMENT, THE PT IS AWAKE. HE IS A&O TO SELF, FOLLOWING COMMANDS, LOCATION & CIRCUMSTANCES OF ADMISSION. HE IS FORGETFUL ABOUT DATE & TIME OF DAY. ASSESSMENT CHARTED. PT IS PLEASANT & COOPERATIVE W/ CARE. TOLERATING AIRVO WELL, SETTINGS: 55 L/MIN & 40% FIO2. PROVIDER AT BEDSIDE, POC UPDATED. REQUEST FOR MEDIUM SS INSULIN COVERAGE FOR CBG READINGS CONSISTENTLY > 200. ORDERS PLACED. ELAVIL TO BE RESTARTED TONIGHT WELL. NO OTHER ORDERS AT THIS TIME. WILL CONTINUE TO MONITOR & UPDATE NEEDED.
--- NOTE | 2019-01-25 17:54 | NUR ---
Initial Visit: Pt is 73 year old male. History of COPD, leukemia, afib, prostate cancer, dementia, malnutrition, CHF with 60% EF (study done on 01/18/19), history of alcohol abuse and nicotine abuse. Continues to smoke 1ppd. Pt is alert, oriented. He is coughing, and trying to get up sputum, however he states that he has been unable "to get anything up." He is fairly frustrated at this. He reports pain is severe, he is unable to give me a number between 0-10. He states that he lives with his sister. He reports that he is able to perform all of his ADLs independently. Called and spoke to pt's sister, Monse. She confirms his information. States that he does currently smoke and drink alcohol. He is independent with ambulation, dressing, bathing, and he is continent. She states that he cannot read or write. Reviewed with her the importance of advance care planning, especially with his issues. She is willing to come in and review all of this with the patient present. With his inablility to read or write, it would be beneficial to have his surrogate present for all conversations regarding planning. He does not have adv dir or POLST form. He was seeing Dr. Blanco for leukemia and for prostate cancer -sister states she cannot remember exactly, but she believes it to be 5 years ago. She is not feeling well herself, so she states she will come in a few days. Instructed her to ask for Babs or another nurse in the palliative care office. She verbalized understanding and states that she will. Will remain available.
--- NOTE | 2019-01-25 18:12 | NUR ---
SHIFT SUMMARY: NO ACUTE CHANGES SINCE ASSUMING CARE. PT REMAINS A&O TO SELF & FOLLOWING DIRECTION. HE IS FORGETFUL REGARDING LOCATION, DATE & TIME OF DAY, NEEDING FREQUENT REORIENTATION & REMINDERS T/O THE SHIFT. LS REMAIN COARSE, PT HAS MOIST COUGH BUT IS UNABLE TO FULLY EXPECTORATE SPUTUM. AIRVO SETTINGS UNCHANGED, 55 L/MIN & 40% FIO2. MONITOR SHOWING AFIB, HR 110-130s. BP STABLE. PT's HOME DOSE OF CARDIZEM RESTARTED TODAY. BT HYPOACTIVE x4, PT HAS HEALTHY APPETITE & IS EATING NUTRITIONAL SUPPLEMENTS SUPPLIED ON MEAL TRAYS. WHITMAN PATENT/DRAINING CLEAR, YELLOW URINE. PT HAS SOME PAIN/IRRITATION TO PENIS R/T WHITMAN, RELIEVED W/ TYLENOL PER EMAR THIS EVENING. SKIN OVERALL CDI. WILL CONTINUE TO MONITOR & REPORT OFF TO ONCOMING RN.
--- NOTE | 2019-01-25 19:17 | NUR ---
PATIENT SITTING UP IN CHAIR WITH AIRVO IN PLACE, PATIENT NEEDING REMINDING TO KEEP IN PLACE, HE REMOVES IT WHILE COUGHING. PATIENT AWARE OF BEING IN THE HOSPITAL AND BUT UNSURE OF DATE. UDN TX GIVEN BY RT. AFIB CONTINUES WITH RATE 110-130'S.
--- NOTE | 2019-01-25 20:05 | NUR ---
PATIENT ABLE TO STAND AND TRANSFER TO BSC AND BED WITH MOD ASSISTANCE. OXYGEN SAT 97-98% AFTER GETTING BACK TO BED. PATIENT ABLE TO PASS LARGE FORMED STOOL WHILE UP TO BSC.
--- NOTE | 2019-01-25 21:32 | NUR ---
PATIENT FOUND AT FOOT OF BED ATTEMPTING TO GET OUT OF BED TO URINATE. PATIENT ASSISTED BACK TO BED AND REMINDED TO NOT GET UP BY HIMSELF AND NEED TO KEEP OXYGEN IN PLACE. BED ALARM TURNED ON FOR PATIENT SAFETY
--- NOTE | 2019-01-25 23:46 | NUR ---
PATIENT SLEEPING OFF AND ON NEEDING FREQUENT REMINDERS TO NOT PULL ON LINES AND CORDS AND TO KEEP THE OXYGEN IN HIS NOSE. BIOX HAS BEEN 97-99% CHANGED TO 3 1/2L/ NC AND PATIENT IS MAINTAINING BIOX 96% PATIENT APPEARS TO NOT PULL ON THE OXYGEN MUCH WITH BEING ON REGULAR NASAL CANULA.
--- NOTE | 2019-01-26 02:39 | NUR ---
PATIENT WOKE UP AND ATTEMPTING TO GET OUT OF BED, WHEN ASKED TO LAY BACK INTO THE BED SO THAT THIS NURSE COULD UNTANGLE HIS LINES PATIENT BECOMING ANGRY AND CONTINUING TO ATTEMPT TO GET OUT OF BED. WHEN MORE HELP CAME TO ROOM AND ABLE TO TURN ON LIGHTS PATIENT BECOMING MORE COOPERATIVE AND ALLOWING US TO REPLACE OXYGEN. BIOX DOWN TO 67% ON RA WHILE FIGHTING TO GET OUT OF BED. PATIENT RECOVERING QUICKLY ON 3.5L/NC TO 95% PATIENT APOLOGIZING AND ABLE TO PULL HIMSELF UP IN BED. BED ALARM CONTINUES.
[2019-01-26 03:51] LABS: Hematocrit 36.6 % (37.0-53.0); Hemoglobin 11.3 g/dL (13.5-17.5); Mean Corpuscular HGB 28.5 pg (26.0-34.0); Mean Corpuscular HGB Conc 30.9 g/dL (31.5-36.5); Mean Corpuscular Volume 92 fL (80-100); Mean Platelet Volume 10.6 fL (9.1-12.4); NRBC ABSOLUTE 0.02 K/mm3 (0.00-0.02); NRBC Auto 0.1 /100 WBC (0.0-0.2); Platelet Count 129 K/mm3 (150-400); RDW Coefficient Variation 15.4 % (11.7-14.2); RDW Standard Deviation 52.2 fL (35.1-46.3); Red Blood Cell Count 3.96 M/mm3 (4.30-5.90); White Blood Cell Count 15.87 K/mm3 (4.00-11.30)
[2019-01-26 04:09] LABS: Albumin, Blood 2.5 g/dL (3.4-5.0); Anion Gap -1 mmol/L (6-16); Blood Urea Nitrogen 20 mg/dL (8-24); Bun/Creatinine Ratio 37.7 (12.0-20.0); CO2, Blood 45 mmol/L (21-32); Calcium, Blood 8.1 mg/dL (8.5-10.1); Chloride, Blood 97 mmol/L (98-108); Creatinine, Blood 0.53 mg/dL (0.60-1.20); Glomerular Filtration Rate >60 (60-); Glucose, Blood 224 mg/dL (70-99); Phosphorus, Blood 1.5 mg/dL (2.5-4.9); Potassium, Blood 4.1 mmol/L (3.5-5.5); Sodium, Blood 141 mmol/L (136-145)
[2019-01-26 05:33] LABS: BAND PERCENT MAN 3 % (0-8); BASOPHILS PERCENT MAN 0 % (0-2); EOSINOPHILS PERCENT MAN 0 % (0-6); LYMPHOCYTES ABSOLUTE MAN 11.74 K/mm3 (0.84-5.20); LYMPHOCYTES PERCENT MAN 74 % (21-46); METAMYELOCYTE ABSOLUTE MAN 0.15 K/mm3 (0.00-0.00); METAMYELOCYTE PERCENT MAN 1 % (0-0); MONOCYTES ABSOLUTE MAN 0.15 K/mm3 (0.16-1.47); MONOCYTES PERCENT MAN 1 % (4-13); SEG NEUTROPHILS PERCENT MAN 21 % (41-73); TOTAL CELLS COUNTED 100
--- NOTE | 2019-01-26 05:35 | NUR ---
SUMMARY PATIENT SLEEPING OFF AND ON T/O OUT THE NIGHT. PATIENT APPEARS MORE CONFUSED THE NIGHT HAS PROGRESSED, AT TIMES TALKING TO SELF IN ROOM. PATIENT APPEARS MOST CONFUSED WHEN HE AWAKENS. NEEDING FREQUENT REMINDERS TO KEEP HIS OXYGEN IN HIS NOSE AND TO NOT PULL ON LINES AND CORDS. PATIENT PULLED ONE IV OUT FROM HIS RIGHT HAND. PATIENT SCAB ON HIS NOSE BLEEDING, SMALL FOAM DRESSING PLACED OVER SCAB. OXYGEN TITRATED DOWN TO 3.5L/NC. MOIST COUGH CONTINUES. WHITMAN CONTINUOS TO DRAIN LARGE AMTS OF CLEAR YELLOW URINE. AFIB CONTINUES WITH HEART RATE 110-130'S BP REMAINS STABLE.
--- NOTE | 2019-01-26 07:37 | NUR ---
ASSUMED CARE / DR. HALEY: REPORT RECEIVED FROM HECTOR Levi RN. ASSUMED CARE AT APPROX 0700. ON ASSESSMENT, THE PT IS AWAKE. HE IS A&O TO SELF, FOLLOWING COMMANDS & LOCATION, FORGETFUL REGARDING TIME OF DAY/ DATE. PT ON 3.5L NC ON ASSUMING CARE, WILL TITRATE DOWN TO PT's HOME DOSE OF 2L NC TOLERATED. PROVIDER AT BEDSIDE TO SEE PT, PLAN IS FOR STATUS CHANGE TO PCU. STEROIDS NOW PO & INSULIN COVERAGE ADJUSTED TO HIGH SS FOR CONTINUED HIGH CBG READINGS. CARDIZEM DOSE FREQUENCY INCREASED FOR CONTINUED TACHYCARDIA. WILL ATTEMPT TO REMOVE WHITMAN AGAIN TODAY PER PROVIDER, NOTIFY IF RETENTION. ORDERS FOR PT/OT PLACED ALSO. WILL CONTINUE TO MONITOR & UDPATE NEEDED.
--- NOTE | 2019-01-26 08:42 | NUR ---
DR. TODD: PROVIDER AT BEDSIDE TO SEE PT. PLANS TO ADD METOPROLOL FOR CONTINUED HIGH HEART RATE & BP. WILL CONTINUE TO MONITOR & UPDATE NEEDED.
--- NOTE | 2019-01-26 17:33 | NUR ---
SHIFT SUMMARY / TRANSFER TO PCU: NO ACUTE CHANGES SINCE INITIAL ASSESSMENT. PT REMAINS A&O TO SELF, FOLLOWING COMMANDS & LOCATION, REMAINS FORGETFUL REGARDING TIME OF DAY & DATE. LS ARE COARSE & WHEEZY T/O, IMPROVES W/ COUGHING. CURRENTLY ON 4L NC, INCREASED WHILE PT UP TO CHAIR & WORKING W/ PHYSICAL THERAPY. MONITOR SHOWS AFIB, HR DECREASED SLIGHTLY SINCE METOPROLOL THIS AM. NOW 10-130 BPM ON AVG. BT x4, PT HAS HEALTHY APPETITE & REQUESTS FREQUENT SNACKS. HE HAS VOIDED W/O DIFFICULTY SINCE WHITMAN CATH REMOVAL. SKIN OVERALL CDI. REPORT HAS BEEN CALLED TO TATIANA Muhammad RN TO ASSUME CARE. PT TO BE TRANSFERRED TO PCU-03. ALL BELONGINGS, CHART & MEDS TO BE TAKEN W/ PT.
--- NOTE | 2019-01-26 18:42 | NUR ---
SHIFT SUMMARY PT RECEIVED FROM ICU. ALERT AND COOPERATIVE. ON 4L OXYGEN VIA NC, SATURATIONS 94%. VSS, AFIB RATE 109 PER TELEMETRY. PT ASKING FOR "UPSIDE DOWN CAKE", PT INFORMED THAT WE DO NOT HAVE ANY CAKE. PT BECAME UPSET AND REFUSED PO METOPROLOL THIS EVENING. 10 MINUTES LATER, PT's BED ALARM GOING OFF, PT HAD PULLED OF OXYGEN, SATURATIONS 81-84% ON ROOM AIR. OXYGEN REAPPLIED AT 4L, SATURATIONS INCREASED TO 90s. PT STATES HE WILL TAKE THE METOPROLOL. PT TOOK PILL WHOLE WITH APPLESAUCE AND FINISHED REMAINING APPLESAUCE. WILL CONTINUE TO MONITOR. BED ALARM ON.
[2019-01-27 04:59] LABS: Hematocrit 39.9 % (37.0-53.0); Hemoglobin 12.4 g/dL (13.5-17.5); Mean Corpuscular HGB 28.8 pg (26.0-34.0); Mean Corpuscular HGB Conc 31.1 g/dL (31.5-36.5); Mean Corpuscular Volume 93 fL (80-100); Mean Platelet Volume 10.5 fL (9.1-12.4); Platelet Count 129 K/mm3 (150-400); RDW Coefficient Variation 15.9 % (11.7-14.2); RDW Standard Deviation 54.3 fL (35.1-46.3); White Blood Cell Count 18.31 K/mm3 (4.00-11.30)
[2019-01-27 05:13] LABS: Albumin, Blood 2.6 g/dL (3.4-5.0); Anion Gap -1 mmol/L (6-16); Blood Urea Nitrogen 22 mg/dL (8-24); Bun/Creatinine Ratio 36.9 (12.0-20.0); CO2, Blood 44 mmol/L (21-32); Calcium, Blood 8.5 mg/dL (8.5-10.1); Chloride, Blood 99 mmol/L (98-108); Glomerular Filtration Rate >60 (60-); Glucose, Blood 119 mg/dL (70-99); Phosphorus, Blood 2.2 mg/dL (2.5-4.9); Potassium, Blood 4.9 mmol/L (3.5-5.5); Sodium, Blood 142 mmol/L (136-145)
[2019-01-27 06:01] LABS: BASOPHILS PERCENT MAN 0 % (0-2); EOSINOPHILS PERCENT MAN 0 % (0-6); LYMPHOCYTES ABSOLUTE MAN 12.81 K/mm3 (0.84-5.20); LYMPHOCYTES PERCENT MAN 70 % (21-46); TOTAL CELLS COUNTED 100
[2019-01-27 06:03] LABS: MONOCYTES ABSOLUTE MAN 0.36 K/mm3 (0.16-1.47); MONOCYTES PERCENT MAN 2 % (4-13); NEUTROPHILS ABSOLUTE MAN 5.12 K/mm3 (1.96-9.15); SEG NEUTROPHILS PERCENT MAN 28 % (41-73)
--- NOTE | 2019-01-27 07:54 | NUR ---
END OF SHIFT SUMMARY ASSUMED CARE OF PT @1900. PT TALKING WITH STAFF, CONFUSED BUT DOES RESPOND APPROPRIATELY AT TIMES. CAN'T REMEMBER CORRECT BUT DOES REMEMBER CORRECT MONTH. BASELINE DEMENTIA. PT HAS REMAINED IN AFIB THIS SHIFT 110'S. VSS. PT HAS REMAINED 3.5 -4L DEPENDENDING ON EXERTION. PT TAKES NC OFF FROM TIME TO TIME. PT APPEARS TO HAVE "SUNDOWNED" THIS SHIFT. PT'S VERBAL APPROPRIATENESS WITH THE WORDS HE SPEAKS AND CONVERSATIONS WITH STAFF DECREASED TO WHERE PATIENT WASN'T REPLYING WITH MANY WORDS, MOSTLY MUMBLING. PT HAS HAD MULTIPLE INCONTINENT VOIDS IN THE BED, PT HAS BEEN VERY COMPULSIVE ABOUT GETTING OUT OF BED. AT TIMES, PT SETS OFF BED ALARM EVETY 15MINUTES TO VOID. WHEN PT VOIDS, GENERALLY AROUND 100MLS. PT HAS BEEN CLEANED MULTIPLE TIMES. PT HAS BEEN TAKING MEDICATIONS WITH APPLESAUCE. HAS TOLERATED WELL. CALL LIGHT WITHIN REACH, PT DOES NOT USE APPROPRIATELY. BED ALARM IN PLACE. REPORT GIVEN TO ONCOMING NURSE BINU.
--- NOTE | 2019-01-27 15:19 | NUR ---
Received call from Pt's bedside nurse Corie and she reports family at bedside has questions regarding who is responsible for making healthcare decisions for Pt. Arrived to Pt's room and Pt's niece is present. Pt is resting in bed with his eyes closed for much of the visit. Pt appears comfortable with mild dyspnea noted as evidenced by work of breathing. Niece asks in the event of Pt needing someone to make decisions for his healthcare who it falls to. Educated Niece on ORS 127.635. Based on family available decisions would fall to majority of sibblings to make healthcare decisions. Discussed current POLST on file and Niece reports current POLST is correct. Dr Caba present towards end of visit. Dr Caba answers nieces questions and reports plan. Discussed POLST with Dr Caba which states Pt's wishes are DNR, Limited Treatment, and No Tube Feedings. Dr Caba is agreeable and will change code status. No other concerns reported at this time. Palliative Care will remain available.
--- NOTE | 2019-01-27 19:32 | NUR ---
PT HAD A GOOD DAY, HE HAS BEEN VERY SLEEPY AND LETHARGIC DURING THIS SHIFT. PT IS UNABLE TO STATE , SOME SPEECH SOUNDS NON-SENSICAL AND HE MUMBLES TO ANSWER QUESTIONS. O2 HAS BEEN TITRATED DOWN TO 2 LPM VIA NC, O2 SAT >92%. PT HAS URINARY URGENCY, BED ALARM ON FOR SAFETY, PATIENT JUMPS UP TO USE URINAL. ADMINISTERED MEDICATIONS IN APPLESAUCE AND/OR PUDDING. PT ABLE TO SWALLOW PILLS WELL AND DRINK FLUIDS, NO STRAWS PER ST. FAMILY IN TO SEE PT TODAY, VOICED CONCERNS ABOUT PT MENTATION, STATED CONCERNS TO DR. HALEY AND HE SPOKE WITH FAMILY AND PATIENT ABOUT CONDITION AND POC. BED LOCKED, LOW AND ALARM SET. CALL LIGHT WITHIN EASY REACH, GAVE REPORT TO OVIDIO DEAN.
--- NOTE | 2019-01-28 04:35 | NUR ---
SHIFT SUMMARY: PATIENT SLEPT WELL THIS SHIFT, VSS, CALL LIGHT WITHIN REACH, BED LOW AND LOCKED WITH EXIT ALARM ON.
--- NOTE | 2019-01-28 08:17 | NUR ---
PT SITTING UP IN BED, SPEAKING MORE APPROPRIATELY, STILL SOME MUMBLING, HOWEVER MORE ALERT THAN YESTERDAY. PT ABLE TO EXPRESS THAT HE DOES NOT HAVE ANY PAIN. O2 TITRATED TO 1.5 LPM VIA NC. PT TOLERATING WELL O2 SAT >93%. WILL CONTINUE TO MONITOR, CHAIR ALARM ARMED, CALL LIGHT WITHIN EASY REACH.
--- NOTE | 2019-01-28 10:00 | NUR ---
ASSUMED CARE OF PATIENT. PT IS SITTING UP IN THE CHAIR WATCHING TV. CALL LIGHT IN REACH. PT DENIES NEEDS AT THIS TIME. WILL CONTINUE TO MONITOR.
--- NOTE | 2019-01-28 12:15 | NUR ---
VS CHECKED, PT SLIGHTLY HYPOTENSIVE, SBP 92. METOPROLOL HELD. PT IS RESTING IN BED WITH NIECE AT BEDSIDE. NIECE IS HELPING PATIENT WITH LUNCH TRAY. PT AND FAMILY DENY NEEDS AT THIS TIME. CALL LIGHT IN REACH, WILL CONTINUE TO MONITOR.
--- NOTE | 2019-01-28 14:25 | NUR ---
PT ASSISTED TO GET DRESSED. REPORT CALLED TO [facility]. IV DC'D CATH INTACT. NIECE AT BEDSIDE. PT DENIES OTHER NEEDS AT THIS TIME.
[2019-01-28] MEDS ORDERED: PRED10 PO (14:34)
[2019-01-28] MEDS ORDERED: Lopressor 25 mg25 MG PO (14:36)
[2019-01-28] MEDS ORDERED: INSR10I SC (14:39)
[2019-01-28] MEDS ORDERED: Cephalexin500 MG PO (14:53)
--- NOTE | 2019-01-28 15:45 | NUR ---
PT TO [facility] VIA WC TRANSPORT.
== END 2019-01-28 15:07 | DRG 871 ==
LOC: ER 09:35 → ICUE 10:51 → ICUW 10:51 → ICUE 11:39 → PCU 01-26 17:49
PROVIDERS: Emergency Medicine; Internal Medicine Critical Care Medicine; Pharmacist; ADMIT Hospitalist
PROC: 5A09557 Assistance with Respiratory Ventilation, Greater than 96 Consecutive Hours, Continuous Positive Airway Pressure (ICD-10-PCS; principal; 2019-01-18)
DX: A41.9 Sepsis, unspecified organism (principal); J10.08 Influenza due to other identified influenza virus with other specified pneumonia; J96.21 Acute and chronic respiratory failure with hypoxia; J15.211 Pneumonia due to Methicillin susceptible Staphylococcus aureus; G93.41 Metabolic encephalopathy; J96.22 Acute and chronic respiratory failure with hypercapnia; C91.90 Lymphoid leukemia, unspecified not having achieved remission; E87.2 Acidosis; J44.1 Chronic obstructive pulmonary disease with (acute) exacerbation; J44.0 Chronic obstructive pulmonary disease with (acute) lower respiratory infection; B96.3 Hemophilus influenzae [H. influenzae] as the cause of diseases classified elsewhere; E87.6 Hypokalemia; E83.39 Other disorders of phosphorus metabolism; I48.91 Unspecified atrial fibrillation; Z99.81 Dependence on supplemental oxygen; F17.210 Nicotine dependence, cigarettes, uncomplicated; Z91.19 Patient's noncompliance with other medical treatment and regimen; K21.9 Gastro-esophageal reflux disease without esophagitis; Z85.46 Personal history of malignant neoplasm of prostate; I95.9 Hypotension, unspecified; F03.90 Unspecified dementia, unspecified severity, without behavioral disturbance, psychotic disturbance, mood disturbance, and anxiety; E83.51 Hypocalcemia; N40.1 Benign prostatic hyperplasia with lower urinary tract symptoms; R33.9 Retention of urine, unspecified
CPT/HCPCS: 36415; 36600; 51702; 71045; 80048; 80053; 80069; 80202; 81001; 82330; 82803; 82947; 83605; 83735; 83880; 84100; 84145; 84484; 85025; 87040; 87070; 87077; 87186; 87205; 87486; 87581; 87633; 87798; 92526; 92610; 93005; 93010; 93306; 93970; 94640; 94660; 94762; 96365; 96368; 97162; 97166; 97530; 97535; 99285-25; A9270; C9113; J0690; J1650; J1815; J1940; J2543; J2920; J2930; J3370; J7030; J7040; J7050; J7512

== ENCOUNTER → 2019-04-21 | Outpatient (CLI) | payer OTHER ==
[~2019-04-21] MED LIST changes: +AMIT50 PO; +Cephalexin500 MG PO; +ELIQUIS5 MG PO; +INSR10I SC; +LO-DOSE ASPIRIN81 MG PO; +Lopressor 25 mg25 MG PO
[2019-04-21 10:49] LABS: Hematocrit 32.5 % (37.0-53.0); Hemoglobin 9.8 g/dL (13.5-17.5); Mean Corpuscular HGB 25.5 pg (26.0-34.0); Mean Corpuscular HGB Conc 30.2 g/dL (31.5-36.5); Mean Corpuscular Volume 84 fL (80-100); Mean Platelet Volume 9.7 fL (9.1-12.4); Platelet Count 362 K/mm3 (150-400); RDW Coefficient Variation 17.2 % (11.7-14.2); RDW Standard Deviation 52.9 fL (35.1-46.3); Red Blood Cell Count 3.85 M/mm3 (4.30-5.90); White Blood Cell Count 28.92 K/mm3 (4.00-11.30)
[2019-04-21 10:59] LABS: Alanine Aminotransfer (ALT/SGP 28 U/L (12-78); Albumin, Blood 2.7 g/dL (3.4-5.0); Alk Phos 92 U/L (40-126); Anion Gap 4 mmol/L (6-16); Aspartate Aminotrans (AST/SGOT 11 U/L (12-37); Bilirubin, Total 0.3 mg/dL (0.1-1.0); Blood Urea Nitrogen 22 mg/dL (8-24); Bun/Creatinine Ratio 23.2 (12.0-20.0); CO2, Blood 33 mmol/L (21-32); Calcium, Blood 8.6 mg/dL (8.5-10.1); Chloride, Blood 105 mmol/L (98-108); Creatinine, Blood 0.95 mg/dL (0.60-1.20); Globulin, Blood 2.6 g/dL (2.2-4.0); Glomerular Filtration Rate >60 (60-); Glucose, Blood 130 mg/dL (70-99); Potassium, Blood 4.4 mmol/L (3.5-5.5); Sodium, Blood 142 mmol/L (136-145); Total Protein, Blood 5.3 g/dL (6.4-8.2)
[2019-04-21 12:51] LABS: BASOPHILS PERCENT MAN 0 % (0-2); EOSINOPHILS ABSOLUTE MAN 0.28 K/mm3 (0.00-0.68); EOSINOPHILS PERCENT MAN 1 % (0-6); LYMPHOCYTES PERCENT MAN 74 % (21-46); MONOCYTES ABSOLUTE MAN 1.15 K/mm3 (0.16-1.47); MONOCYTES PERCENT MAN 4 % (4-13); NEUTROPHILS ABSOLUTE MAN 6.07 K/mm3 (1.96-9.15); SEG NEUTROPHILS PERCENT MAN 21 % (41-73); TOTAL CELLS COUNTED 100
== END | disposition home or self-care (01) ==
LOC: LAB EV 10:39 → LAB SHORT 10:39
PROVIDERS: General Practice
DX: C91.90 Lymphoid leukemia, unspecified not having achieved remission (principal); R06.02 Shortness of breath
CPT/HCPCS: 80053; 83880; 85025

== ENCOUNTER → 2019-12-20 | Outpatient (CLI) | payer OTHER | END | disposition home or self-care (01) | LOC: PLD 15:15 → LAB SHORT 15:15 | DX: L57.0 Actinic keratosis (principal) | CPT/HCPCS: 88305 ==

== ENCOUNTER 2020-01-13 04:16 | Observation (INO) | payer OTHER ==
[~2020-01-13] VITALS: Ht 175.3 cm; Wt 80.5 kg
[2020-01-13 04:26] LABS: PCO2 Arterial 55.8 mmHg (35-45); PO2 Arterial 69.1 mmHg (80-100); pH Blood Arterial 7.37 (7.35-7.45)
[2020-01-13 04:33] LABS: Mean Corpuscular HGB 27.1 pg (26.0-34.0); Mean Corpuscular HGB Conc 30.3 g/dL (31.5-36.5); Mean Corpuscular Volume 89 fL (80-100); Mean Platelet Volume 12.7 fL (9.1-12.4); Platelet Count 163 K/mm3 (150-400); RDW Coefficient Variation 15.1 % (11.7-14.2); RDW Standard Deviation 48.2 fL (35.1-46.3); Red Blood Cell Count 3.69 M/mm3 (4.30-5.90)
[2020-01-13 04:34] LABS: White Blood Cell Count 53.66 K/mm3 (4.00-11.30)
[2020-01-13 04:49] LABS: BAND PERCENT MAN 1 % (0-8); BASOPHILS PERCENT MAN 0 % (0-2); EOSINOPHILS PERCENT MAN 0 % (0-6); LYMPHOCYTES ABSOLUTE MAN 47.22 K/mm3 (0.84-5.20); LYMPHOCYTES PERCENT MAN 88 % (21-46); MONOCYTES ABSOLUTE MAN 1.07 K/mm3 (0.16-1.47); MONOCYTES PERCENT MAN 2 % (4-13); NEUTROPHILS ABSOLUTE MAN 5.36 K/mm3 (1.96-9.15); SEG NEUTROPHILS PERCENT MAN 9 % (41-73); TOTAL CELLS COUNTED 100
[2020-01-13 04:53] LABS: Alanine Aminotransfer (ALT/SGP 16 U/L (12-78); Albumin/Globulin Ratio 1.2 (0.8-1.8); Alk Phos 77 U/L (50-136); Anion Gap 6 mmol/L (6-16); Aspartate Aminotrans (AST/SGOT 11 U/L (12-37); Bilirubin, Total 0.6 mg/dL (0.1-1.0); Blood Urea Nitrogen 27 mg/dL (8-24); Bun/Creatinine Ratio 22.9 (12.0-20.0); CO2, Blood 30 mmol/L (21-32); Calcium, Blood 7.9 mg/dL (8.5-10.1); Chloride, Blood 102 mmol/L (98-108); Creatinine, Blood 1.18 mg/dL (0.60-1.20); Globulin, Blood 2.5 g/dL (2.2-4.0); Glomerular Filtration Rate >60 (60-); Glucose, Blood 157 mg/dL (70-99); Potassium, Blood 5.3 mmol/L (3.5-5.5); Sodium, Blood 138 mmol/L (136-145); Total Protein, Blood 5.5 g/dL (6.4-8.2); Troponin I <0.015 ng/mL (0.000-0.040)
--- NOTE | 2020-01-13 06:57 | NUR ---
ADMIT FROM ER PT ARRIVED FROM ER VIA GURNEY. HE WAS SLID OVER WITH NO ISSUES. VITALS ARE STABLE. 3L N/C WITH SATS HOLDING AT 96%. NO S/S OF RESP DISTRESS. WHITMAN CATH IN PLACE WITH 3000 CC OF URINE DRAINED AT THIS TIME. CLEAR YELLOW URINE. PT DOES HAVE BIPAP IN ROOM AT BEDSIDE RT STATES HE DOESN'T NEED IT AT THIS TIME. WILL CON'T TO MONITOR TILL REPORT TO ONCOMING RN.
[2020-01-13 07:29] LABS: Source, Urine Catheter
[2020-01-13 07:33] LABS: Bilirubin, Urine Neg (Neg); Blood, Urine Neg (Neg); Glucose Qualitative, Urine Neg (Neg); Ketones, Urine Neg (Neg); Leukocyte Esterase, Urine Neg (Neg); Nitrite, Urine Neg (Neg); Protein, Urine Neg (Neg); Specific Gravity, Urine 1.015 (1.003-1.022); Urobilinogen, Urine NORM (Normal)
[2020-01-13 07:34] LABS: Appearance, Urine Clear (Clear); Color, Urine Yellow (P-Yellow)
[2020-01-13 07:48] LABS: U Amphetamine Screen Not Detected; U Barbituate Screen Not Detected; U Benzodiazapine Screen Not Detected; U Buprenorphine Screen Not Detected; U Cannabinoids Screen DETECTED; U Cocaine Screen Not Detected; U Methadone Screen Not Detected; U Methamphetamine Screen Not Detected; U Opiates Screen Not Detected; U Oxycodone Screen Not Detected; U Phencyclidine Screen Not Detected; U Propoxyphene Screen Not Detected
[2020-01-13] MEDS ORDERED: IMBRUVICA420 MG PO (09:12)
--- NOTE | 2020-01-13 10:38 | NUR ---
ASSUMED CARE OF PT AT 0700. REPORT FROM GRAZYNA NOLAN. PT RESTING IN BED. RESPONSES TO VERBAL STIMULI. PT c SLURRED SPEECH, DIFFICULT TO UNDERSTAND, DOES NOT HAVE DENTURES, STATES HE DOES NOT HAVE ANY AT HOME. A&O X 2. FOLLOWS SIMPLE COMMANDS. DENIES COMPLAINTS. LUNGS CLEAR, DIMINISHED IN BASES. NON PRODUCTIVE COUGH NOTED. O2 AT 2L VIA NC, O2 SATS MID 90'S. EDEMA TO LOWER EXTREMITIES, 3+ LLE, 2+ RLE. WHITMAN IN PLACE, PATENT, DRAINING CLEAR YELLOW URINE TO GRAVITY. PT ABLE TO SHIFT IN BED. VSS. WILL CONTINUE TO MONITOR. DR CHAMBERS ROUNDED THIS AM, STATUS CHANGED TO MED c TELE. CALL PLACED TO SISTER TO UPDATE MEDS, REPORTED TO NEW MEDICAL CONDITIONS SINCE LAST ADMISSION. REPORTS PT CODE STATUS DNR. WHEN ASKED ABOUT POSITIVE MARIJUANA SCREEN, STATES "IF TOLD THOSE PEOPLE NOT TO GIVE IT TO HIM." STATES PT DEVELOPMENTALLY DELAYED, DOES NOT READ OR WRITE.
[2020-01-13 12:53] LABS: CPK Creatine Kinase 83 U/L (39-308); Troponin I <0.015 ng/mL (0.000-0.040)
--- NOTE | 2020-01-13 15:13 | NUR ---
TRANSFER TO MEDICAL FLOOR REPORT TO MARLYN NOLAN. ALL BELONGINGS c PT. PT STATUS CHANGED TO MED c TELE. O2 SATS REMAINED MID 90'S ALL SHIFT c PT ON 2.5L VIA NC. PT WORKED c OT. UP TO CHAIR, ONE PERSON ASSIST. STATES HE DOES NOT USE ASSISTIVE DEVICES AT HOME. CALLED [facility]. VSS. OTD NAD.
--- NOTE | 2020-01-13 15:31 | NUR ---
PATIENT ARRIVED TO THE UNIT AT 15:15. NO COMPLAINTS. PHYSICAL THERAPY IS ON THEIR WAY TO WORK WITH THE PATIENT
--- NOTE | 2020-01-13 16:50 | NUR ---
PATIENT IS ALERT AND ORIENTED X2. HE IS COOPERATIVE WITH CARE. PATIENT IS IMPULSIVE AND WILL GET UP ON HIS OWN. NO COMPLAINTS OF SOB. 2.5L O2 VIA NC WITH OXYGEN SATURATION OF 95%. PHYSICAL THERAPY WORKED WITH THE PATIENT THIS AFTERNOON. WILL CONTINUE TO MONITOR
[2020-01-13 20:54] LABS: CPK Creatine Kinase 74 U/L (39-308); Troponin I <0.015 ng/mL (0.000-0.040)
--- NOTE | 2020-01-14 04:22 | NUR ---
SHIFT SUMMARY PT DENIED SOB DURING SHIFT, DENIED PAIN OR ANY NEEDS. HELPED PT TRANSFER FROM BED TO CHAIR, T ATTEMPTED TO TRANSFER SELF. CHAIR ALARM AND BED ALARM ON DURING SHIFT. PT HAS BEEN RESTING IN BED DURING SHIFT. VSS. CALL LIGHT IN REACH.
[2020-01-14 05:00] LABS: EOSINOPHILS PERCENT AUTO 0 % (0-6); Hematocrit 33.1 % (37.0-53.0); Hemoglobin 9.9 g/dL (13.5-17.5); Mean Corpuscular HGB 26.3 pg (26.0-34.0); Mean Corpuscular HGB Conc 29.9 g/dL (31.5-36.5); Mean Corpuscular Volume 88 fL (80-100); Mean Platelet Volume 12.9 fL (9.1-12.4); NRBC ABSOLUTE 0.02 K/mm3 (0.00-0.02); Platelet Count 158 K/mm3 (150-400); RDW Coefficient Variation 14.8 % (11.7-14.2); RDW Standard Deviation 47.6 fL (35.1-46.3); Red Blood Cell Count 3.76 M/mm3 (4.30-5.90)
[2020-01-14 05:02] LABS: BASOPHILS ABSOLUTE AUTO 0.04 K/mm3 (0.00-0.23); BASOPHILS PERCENT AUTO 0 % (0-2); IMMATURE GRAN ABSOLUTE AUTO 0.53 K/mm3 (0.00-0.10); IMMATURE GRAN PERCENT AUTO 1 % (0-1); LYMPHOCYTES ABSOLUTE AUTO 41.39 K/mm3 (0.84-5.20); LYMPHOCYTES PERCENT AUTO 80 % (21-46); MONOCYTES ABSOLUTE AUTO 0.27 K/mm3 (0.16-1.47); MONOCYTES PERCENT AUTO 1 % (4-13); NEUTROPHILS ABSOLUTE AUTO 9.63 K/mm3 (1.96-9.15); NEUTROPHILS PERCENT AUTO 19 % (41-73)
[2020-01-14 05:05] LABS: White Blood Cell Count 51.86 K/mm3 (4.00-11.30)
[2020-01-14 05:19] LABS: Alanine Aminotransfer (ALT/SGP 17 U/L (12-78); Albumin, Blood 2.8 g/dL (3.4-5.0); Albumin/Globulin Ratio 1.1 (0.8-1.8); Alk Phos 74 U/L (50-136); Anion Gap 5 mmol/L (6-16); Aspartate Aminotrans (AST/SGOT 10 U/L (12-37); Bilirubin, Total 0.8 mg/dL (0.1-1.0); Blood Urea Nitrogen 34 mg/dL (8-24); Bun/Creatinine Ratio 32.7 (12.0-20.0); CO2, Blood 33 mmol/L (21-32); Calcium, Blood 8.2 mg/dL (8.5-10.1); Chloride, Blood 100 mmol/L (98-108); Creatinine, Blood 1.04 mg/dL (0.60-1.20); Globulin, Blood 2.5 g/dL (2.2-4.0); Glomerular Filtration Rate >60 (60-); Glucose, Blood 165 mg/dL (70-99); Potassium, Blood 4.5 mmol/L (3.5-5.5); Sodium, Blood 138 mmol/L (136-145); Total Protein, Blood 5.3 g/dL (6.4-8.2)
[2020-01-14] MEDS ORDERED: Prednisone10 MG PO (11:54)
--- NOTE | 2020-01-14 15:58 | NUR ---
DISCHARGE SUMMARY PT LEFT AT 1550 BY WC TO GO DOWN TO HIS SISTER TO GO HOME BY CAR. PIVS REMOVED, PAPERWORK GONE OVER, HOME CHEMO MEDS GIVEN FOR HIM TO TAKE HOME.
== END 2020-01-14 15:55 | disposition home or self-care (01) ==
LOC: ER 04:16 → ICUW 04:17 → ERHOLD 04:17 → ER 05:11 → ERHOLD 05:11 → ICUW 06:11 → MEDS 15:21 → ENPENDDIS 01-14 10:30 → MEDS 01-14 15:55
PROVIDERS: Emergency Medicine; ADMIT Internal Medicine
DX: J96.21 Acute and chronic respiratory failure with hypoxia (principal); J44.1 Chronic obstructive pulmonary disease with (acute) exacerbation; I50.32 Chronic diastolic (congestive) heart failure; N18.3 Chronic kidney disease, stage 3 (moderate); I48.20 Chronic atrial fibrillation, unspecified; F03.90 Unspecified dementia, unspecified severity, without behavioral disturbance, psychotic disturbance, mood disturbance, and anxiety; F17.210 Nicotine dependence, cigarettes, uncomplicated; C91.Z0 Other lymphoid leukemia not having achieved remission; Z79.899 Other long term (current) drug therapy; Z99.81 Dependence on supplemental oxygen; Z79.51 Long term (current) use of inhaled steroids; Z79.01 Long term (current) use of anticoagulants; G93.40 Encephalopathy, unspecified
CPT/HCPCS: 36415; 36600; 51702; 70450; 71045; 80053; 81003; 82550; 82803; 83880; 84484; 85025; 93005; 93010; 93306; 94640; 94660; 94667; 96372; 96374-59; 96375; 96376; 97162; 97166; 97530; 99285-25; A9270; G0378; J1650; J2930

== ENCOUNTER → 2020-04-10 | Outpatient (CLI) | payer OTHER ==
[~2020-04-10] MED LIST changes: +IMBRUVICA420 MG PO; +Prednisone10 MG PO
== END ==
LOC: LAB 18:25 → LAB SHORT 18:25
DX: L08.9 Local infection of the skin and subcutaneous tissue, unspecified (principal)
CPT/HCPCS: 87070; 87077; 87186; 87205

== ENCOUNTER → 2020-04-12 | Outpatient (CLI) | payer OTHER | END | disposition home or self-care (01) | LOC: LAB SHORT 14:00 → LAB 14:00 | DX: R05 Cough (principal) | CPT/HCPCS: 87070; 87077; 87106; 87186; 87205 ==

== ENCOUNTER 2020-09-10 18:33 | Inpatient (IN) | payer OTHER ==
[~2020-09-10] VITALS: Ht 165.1 cm; Wt 77.3 kg
[~2020-09-10 18:33] MED LIST changes: -ALBU2.5V5 INH; -FLUT1DIS5 INH; -IMBRUVICA420 MG PO; -TIOT18 INH
[2020-09-10] MEDS ORDERED: TAMS.4ER PO (19:04)
[2020-09-10] MEDS ORDERED: ALBU2.5V5 NEB (19:05)
[2020-09-10] MEDS ORDERED: IMBRUVICA420 MG PO (19:06)
[2020-09-10] MEDS ORDERED: TIOT18 INH (19:06)
[2020-09-10] MEDS ORDERED: FLUT1DIS5 INH (19:06)
[2020-09-10] MEDS ORDERED: OMEP20ER PO (19:08)
[2020-09-11 03:47] LABS: BASOPHILS ABSOLUTE AUTO 0.04 K/mm3 (0.00-0.23); BASOPHILS PERCENT AUTO 0 % (0-2); EOSINOPHILS PERCENT AUTO 0 % (0-6); Hematocrit 32.4 % (37.0-53.0); Hemoglobin 9.7 g/dL (13.5-17.5); IMMATURE GRAN ABSOLUTE AUTO 0.56 K/mm3 (0.00-0.10); IMMATURE GRAN PERCENT AUTO 4 % (0-1); LYMPHOCYTES ABSOLUTE AUTO 2.95 K/mm3 (0.84-5.20); LYMPHOCYTES PERCENT AUTO 23 % (21-46); MONOCYTES ABSOLUTE AUTO 0.27 K/mm3 (0.16-1.47); MONOCYTES PERCENT AUTO 2 % (4-13); Mean Corpuscular HGB 24.9 pg (26.0-34.0); Mean Corpuscular HGB Conc 29.9 g/dL (31.5-36.5); Mean Corpuscular Volume 83 fL (80-100); Mean Platelet Volume 12.1 fL (9.1-12.4); NEUTROPHILS ABSOLUTE AUTO 9.06 K/mm3 (1.96-9.15); NEUTROPHILS PERCENT AUTO 70 % (41-73); Platelet Count 163 K/mm3 (150-400); RDW Coefficient Variation 17.9 % (11.7-14.2); RDW Standard Deviation 54.4 fL (35.1-46.3); White Blood Cell Count 12.88 K/mm3 (4.00-11.30)
[2020-09-11 04:11] LABS: Alanine Aminotransfer (ALT/SGP 11 U/L (12-78); Albumin, Blood 2.3 g/dL (3.4-5.0); Albumin/Globulin Ratio 0.8 (0.8-1.8); Alk Phos 93 U/L (50-136); Anion Gap 7 mmol/L (6-16); Aspartate Aminotrans (AST/SGOT 8 U/L (12-37); Bilirubin, Total 0.6 mg/dL (0.1-1.0); Blood Urea Nitrogen 26 mg/dL (8-24); Bun/Creatinine Ratio 22.6 (12.0-20.0); CO2, Blood 31 mmol/L (21-32); Calcium, Blood 8.2 mg/dL (8.5-10.1); Chloride, Blood 101 mmol/L (98-108); Creatinine, Blood 1.15 mg/dL (0.60-1.20); Glomerular Filtration Rate >60 (60-); Glucose, Blood 185 mg/dL (70-99); Potassium, Blood 4.1 mmol/L (3.5-5.5); Sodium, Blood 139 mmol/L (136-145); Total Protein, Blood 5.3 g/dL (6.4-8.2)
--- NOTE | 2020-09-11 05:36 | NUR ---
SHIFT SUMMARY PT ADMITTED FROM ER WITH SISTER/MEDICAL DECISION MAKER. ADMISSION COMPLETE. PT AXO WITH DEVELOPMENT DELAY BUT ANSWERS QUESTIONS APPROPRIATELY. IN CHRONIC AFIB 100'S/ ON BASELINE OF 3LNC WITH SPO2 >92%. LUNGS COARSE/WHEEZY BUT PT DENIES SOB. VSS T/O SHIFT. HAS BEEN RESTING T/O SHIFT. WILL CONTINUE TO MONITOR UNTIL SHIFT CHANGE.
[2020-09-11 11:33] LABS: Influenza A, PCR Negative (NEGATIVE); Influenza B, PCR Negative (NEGATIVE); Resp Syncytial Virus, PCR Negative (NEGATIVE); SARS-Cov-2 (COVID-19) PCR, MMC Negative (NEGATIVE)
--- NOTE | 2020-09-11 13:27 | NUR ---
PT STATUS CHANGED TO MEDICAL WITH TELE. PT HAD RUNS OF [facility] 7 BEATS PT WAS ASYMPTOMATIC, QC LAB TECHNICIAN WAS IN THE ROOM TALKING TO THE PT AND PT WAS CONVERSIVE AND DIDN'T C/O ANYTHING, DENIES CHEST PAIN DR ROBERT CALLED AND MADE AWARE. TO CONTINUE TO MONITOR PT. PT REMAINS ALERT, FORGETFUL AT TIMES HAS HX OF DEVELOPMENTAL DELAY AND DEMENTIA. [facility] SOFT DIET STARTED TODAY PT WAS ABLE TO TOLERATE NO COUGHING EPISODES NOT EVEN ON THIN FLUIDS. PT INCONTINENT OF URINE. ATTENDS IN [place] BUT CALLS APPROPRIATELY. HRR AFIB 90-110'S RESTING INCREASES UP TO 120'S WITH EXERTION. BP SYSTOLIC 100'S-130'S, SATS ABOVE 92% ON 4L OF O2, AFEBRILE. PT NOW RESTING COMFORTABLY IN BED, PT WAS UP IN THE CHAIR FOR LUNCH, SBA FOR TRANSFERS. ABLE TO MAKE NEEDS KNOWN, CALL LIGHTS IN REACH WILL MONITOR
--- NOTE | 2020-09-11 15:36 | NUR ---
Upon receiving an admit referral for spiritual care, I visit patient. Patient is siting up in bed and alert. Patient immediately explains about his medical conditions and his current issue of Pneumonia. Patient then tells about his sister, Monse, who is close to him and helps him get to his appointments and watches out for him. Patient shares about his belief system and that he believes in Leonel but not the caodaism. He finds his strength and karol in Michele, as well as his inspiration to go through difficulties. I listen empathically and provide companionship and prayer. Patient shows evidence in being encouraged in his own juan and belief system. I will continue to remain available to patient and family.
--- NOTE | 2020-09-11 21:00 | NUR ---
PT ALERT AND ORIENTED, RESPONDS TO ALL QUESTIONS APPROPRIATELY. PT TAKES PO MEDICATIONS WITHOUT COMPLICATIONS. PT TO BE TRANSFERRED TO MEDICAL FLOOR. PT DENIES ANY COMPLAINTS OF PAIN/DISCOMFORT. PT ON 4L O2 VIA NC. CALL LIGHT WITHIN REACH. BED ALARM ON. FLUIDS AT BEDSIDE.
--- NOTE | 2020-09-11 21:15 | NUR ---
REPORT GIVEN TO OVIDIO PORTILLO MEDICAL FLOOR.
--- NOTE | 2020-09-11 21:45 | NUR ---
PT TRANSFERRED BY KOSHER BUTCHER X2 TO MEDICAL FLOOR.
--- NOTE | 2020-09-12 04:19 | NUR ---
SHIFT SUMMARY PT TRANSFERED FROM ROOM PCU 14 THIS EVENING. PLEASANT AND COOPERATIVE. ALERT AND ORIENTED WITH HX OF DEVELOPMENTAL DELAY. PT ON 3-4 L O2 VIA NC WITH O2 SATS IN THE MID 90'S. LUNG SOUNDS COARSE AND WHEEZY THROUGHOUT. PT DENIES ANY SOB. HOWEVER PT'S BREATHING DOES APPEAR TO BECOME MORE LABORED WITH ANY SORT OF EXERTION. PT HAS LOOSE SOUNDING COUGH BUT HAS HAD VERY LITTLE PRODUCTION. PT HAS CALLED APPROPRIATELY THROUGHOUT THE NIGHT. USING THE URINAL WHILE IN BED. CONTINENT. TELEMETRY MONITORING, PT AFIB 101. VITAL SIGNS STABLE. NO ACUTE CHANGES THIS SHIFT. WILL CONTINUE TO MONITOR AND REPORT TO DAY RN.
[2020-09-12 05:32] LABS: Hematocrit 32.5 % (37.0-53.0); Hemoglobin 9.6 g/dL (13.5-17.5); Mean Corpuscular HGB 24.6 pg (26.0-34.0); Mean Corpuscular HGB Conc 29.5 g/dL (31.5-36.5); Mean Corpuscular Volume 83 fL (80-100); Mean Platelet Volume 12.3 fL (9.1-12.4); Platelet Count 158 K/mm3 (150-400); RDW Coefficient Variation 17.8 % (11.7-14.2); RDW Standard Deviation 54.4 fL (35.1-46.3); White Blood Cell Count 13.68 K/mm3 (4.00-11.30)
[2020-09-12 06:02] LABS: BAND PERCENT MAN 8 % (0-8); BASOPHILS PERCENT MAN 0 % (0-2); EOSINOPHILS PERCENT MAN 0 % (0-6); LYMPHOCYTES ABSOLUTE MAN 2.87 K/mm3 (0.84-5.20); LYMPHOCYTES PERCENT MAN 21 % (21-46); MONOCYTES ABSOLUTE MAN 0.41 K/mm3 (0.16-1.47); MONOCYTES PERCENT MAN 3 % (4-13); NEUTROPHILS ABSOLUTE MAN 10.39 K/mm3 (1.96-9.15); SEG NEUTROPHILS PERCENT MAN 68 % (41-73); TOTAL CELLS COUNTED 100
[2020-09-12 06:04] LABS: Anion Gap 6 mmol/L (6-16); Blood Urea Nitrogen 31 mg/dL (8-24); Bun/Creatinine Ratio 30.1 (12.0-20.0); CO2, Blood 31 mmol/L (21-32); Calcium, Blood 8.6 mg/dL (8.5-10.1); Chloride, Blood 103 mmol/L (98-108); Creatinine, Blood 1.03 mg/dL (0.60-1.20); Glomerular Filtration Rate >60 (60-); Glucose, Blood 169 mg/dL (70-99); Potassium, Blood 4.2 mmol/L (3.5-5.5); Sodium, Blood 140 mmol/L (136-145)
--- NOTE | 2020-09-12 18:52 | NUR ---
SHIFT SUMMARY PT A/O X2; PLEASANT AND COOPERATIVE WITH CARE. PT IS A STAND BY ASSIST TO THE BATHROOM AND USES THE URINAL IND AT BEDSIDE. CRACKLES IN THE LUNGS THIS AM THAT PROGRESSED TO WHEEZES LATER IN THE DAY. AFIB ON TELE. VSS; WILL REPORT TO BELL MAKER RN.
--- NOTE | 2020-09-12 19:00 | NUR ---
ASSUMED CARE RECEIVED REPORT FROM OVIDIO GARCIA. PT RESTING COMFORTABLY, NO S/S RESPIRATORY DISTRESS NOTED. DENIES NEEDS AT THIS TIME. CALL LIGHT, POSSESSIONS IN REACH, BED IN LOW POSITION WITH ALARMS ON. CONTINUE TO MONITOR.
[2020-09-13 05:06] LABS: Hematocrit 32.3 % (37.0-53.0); Hemoglobin 9.8 g/dL (13.5-17.5); Mean Corpuscular HGB 25.1 pg (26.0-34.0); Mean Corpuscular HGB Conc 30.3 g/dL (31.5-36.5); Mean Corpuscular Volume 83 fL (80-100); Mean Platelet Volume 12.1 fL (9.1-12.4); Platelet Count 166 K/mm3 (150-400); RDW Coefficient Variation 17.6 % (11.7-14.2); RDW Standard Deviation 53.5 fL (35.1-46.3); White Blood Cell Count 12.72 K/mm3 (4.00-11.30)
[2020-09-13 05:30] LABS: Anion Gap 5 mmol/L (6-16); Blood Urea Nitrogen 37 mg/dL (8-24); Bun/Creatinine Ratio 34.3 (12.0-20.0); CO2, Blood 33 mmol/L (21-32); Calcium, Blood 8.5 mg/dL (8.5-10.1); Chloride, Blood 102 mmol/L (98-108); Creatinine, Blood 1.08 mg/dL (0.60-1.20); Glomerular Filtration Rate >60 (60-); Glucose, Blood 161 mg/dL (70-99); Potassium, Blood 4.2 mmol/L (3.5-5.5); Sodium, Blood 140 mmol/L (136-145)
[2020-09-13 05:37] LABS: BAND PERCENT MAN 5 % (0-8); BASOPHILS PERCENT MAN 0 % (0-2); EOSINOPHILS PERCENT MAN 0 % (0-6); LYMPHOCYTES ABSOLUTE MAN 2.79 K/mm3 (0.84-5.20); LYMPHOCYTES PERCENT MAN 22 % (21-46); METAMYELOCYTE ABSOLUTE MAN 0.25 K/mm3 (0.00-0.00); METAMYELOCYTE PERCENT MAN 2 % (0-0); MONOCYTES ABSOLUTE MAN 0.38 K/mm3 (0.16-1.47); MONOCYTES PERCENT MAN 3 % (4-13); MYELOCYTE ABSOLUTE MAN 0.12 K/mm3 (0.00-0.00); MYELOCYTE PERCENT MAN 1 % (0-0); NEUTROPHILS ABSOLUTE MAN 9.15 K/mm3 (1.96-9.15); SEG NEUTROPHILS PERCENT MAN 67 % (41-73); TOTAL CELLS COUNTED 100
--- NOTE | 2020-09-13 06:55 | NUR ---
SHIFT SUMMARY PT RESTING, NO S/S ACUTE DISTRESS NOTED. VS REVIEWED, WNL; O2 SATS STABLE ON 3L/NC. NO ACUTE CHANGES IN CONDITION NOTED T/O NIGHT. DENIES NEEDS AT THIS TIME. CALL LIGHT, POSSESSIONS IN REACH, BED IN LOW POSITION WITH ALARMS ON. REPORT GIVEN TO OVIDIO KERN.
--- NOTE | 2020-09-13 16:53 | NUR ---
PT AOX3 AND COOPERATIVE OF CARE. PT STILL HAS WHEEZING, BUT IF DOING VERY WELL WITH TRANSFERING TO CHAIR AND TO RESTROOM WITH STANBY ASSIST. PT USES CALL LIGHT, BUT WILL SOMETIMES SET CHAIR OF BED ALARMS OFF. PT DENIES ANY PAIN. CALL LIGHT IS WITHIN REACH WILL CONTINUE TO MONITOR.
--- NOTE | 2020-09-14 04:30 | NUR ---
ELEVATOR OPERATOR SERVICE SUMMARY A/O 2-3, HX OF DEMENTIA. INTERMITTENT CONFUSION NOTED. DENIES PAIN OR SOB. CURRENTLY ON 4L VIA NC. CRACKLES AND WHEEZES NOTED T/O LUNGS. VSS. NO ACUTE CHANGES AT THIS TIME. BED IN LOWEST POSITION WITH CALL LIGHT IN REACH. WILL CONTINUE TO MONITOR AND REPORT TO ONCOMING RN.
[2020-09-14 05:44] LABS: Hematocrit 34.3 % (37.0-53.0); Hemoglobin 10.6 g/dL (13.5-17.5); Mean Corpuscular HGB 25.8 pg (26.0-34.0); Mean Corpuscular HGB Conc 30.9 g/dL (31.5-36.5); Mean Corpuscular Volume 84 fL (80-100); Mean Platelet Volume 12.4 fL (9.1-12.4); Platelet Count 172 K/mm3 (150-400); RDW Coefficient Variation 17.4 % (11.7-14.2); RDW Standard Deviation 53.1 fL (35.1-46.3); Red Blood Cell Count 4.11 M/mm3 (4.30-5.90)
[2020-09-14 06:09] LABS: Anion Gap 4 mmol/L (6-16); Blood Urea Nitrogen 40 mg/dL (8-24); Bun/Creatinine Ratio 41.4 (12.0-20.0); CO2, Blood 34 mmol/L (21-32); Calcium, Blood 8.3 mg/dL (8.5-10.1); Chloride, Blood 103 mmol/L (98-108); Creatinine, Blood 0.97 mg/dL (0.60-1.20); Glomerular Filtration Rate >60 (60-); Glucose, Blood 244 mg/dL (70-99); Magnesium, Blood 2.5 mg/dL (1.6-2.4); Potassium, Blood 4.3 mmol/L (3.5-5.5); Sodium, Blood 141 mmol/L (136-145)
[2020-09-14 06:16] LABS: BASOPHILS PERCENT MAN 0 % (0-2); EOSINOPHILS PERCENT MAN 0 % (0-6); LYMPHOCYTES ABSOLUTE MAN 3.88 K/mm3 (0.84-5.20); LYMPHOCYTES PERCENT MAN 29 % (21-46); METAMYELOCYTE ABSOLUTE MAN 0.13 K/mm3 (0.00-0.00); METAMYELOCYTE PERCENT MAN 1 % (0-0); MONOCYTES ABSOLUTE MAN 0.67 K/mm3 (0.16-1.47); MONOCYTES PERCENT MAN 5 % (4-13); MYELOCYTE ABSOLUTE MAN 0.67 K/mm3 (0.00-0.00); MYELOCYTE PERCENT MAN 5 % (0-0); NEUTROPHILS ABSOLUTE MAN 8.04 K/mm3 (1.96-9.15); SEG NEUTROPHILS PERCENT MAN 60 % (41-73); TOTAL CELLS COUNTED 100
--- NOTE | 2020-09-14 07:24 | NUR ---
pt sleeping wakes to verbal stimuli pt has a harsh dry non productive cough wheezing t/o with crackles pt worried about his clothing
--- NOTE | 2020-09-14 11:15 | NUR ---
dr melgartrate by to see pt
--- NOTE | 2020-09-14 12:42 | NUR ---
pt sitting on edge of the bed eating lunch
--- NOTE | 2020-09-14 15:04 | NUR ---
PT SITTING UP IN CHAIR DECLINED COUGH MED
--- NOTE | 2020-09-14 16:49 | NUR ---
PT BACK INTO BED
--- NOTE | 2020-09-14 17:20 | NUR ---
tele d/c'd pt keeps dropping it on the floor
--- NOTE | 2020-09-14 17:40 | NUR ---
PT IN CHAIR EATING DINNER
--- NOTE | 2020-09-15 04:24 | NUR ---
SHIFT SUMMARY- PT. AWAKE, RESTLESS, AND CONFUSED DURING THE NIGHT, GETTING OOB SEVERAL TIMES T/O THE SHIFT AND ATTEMPTING TO LEAVE THE ROOM. REDIRECTED AND ASSISTED BACK TO BED BY NURSING STAFF [place] TIMES. PT. DENIED ANY PAIN OR DISCOMFORT. SCHEDULED MEDS TAKEN W/O DIFFICULTY. PULLED IV CATHETER. NEW IV STARTED, TOLERATED WELL. PT. USES THE URINAL AT THE BEDSIDE WITH OCCASIONAL INCONTINENCE. VSS. CALL LIGHT WITHIN REACH, SIDE RAILS UPX2, AND BED ALARM ON. WILL CONT TO MONITOR.
[2020-09-15 05:39] LABS: Hematocrit 36.4 % (37.0-53.0); Mean Corpuscular HGB 24.8 pg (26.0-34.0); Mean Corpuscular HGB Conc 30.2 g/dL (31.5-36.5); Mean Corpuscular Volume 82 fL (80-100); Platelet Count 181 K/mm3 (150-400); RDW Coefficient Variation 17.6 % (11.7-14.2); RDW Standard Deviation 53.2 fL (35.1-46.3); Red Blood Cell Count 4.44 M/mm3 (4.30-5.90); White Blood Cell Count 15.51 K/mm3 (4.00-11.30)
[2020-09-15 05:58] LABS: BAND PERCENT MAN 2 % (0-8); BASOPHILS PERCENT MAN 0 % (0-2); EOSINOPHILS PERCENT MAN 0 % (0-6); LYMPHOCYTES ABSOLUTE MAN 4.03 K/mm3 (0.84-5.20); LYMPHOCYTES PERCENT MAN 26 % (21-46); METAMYELOCYTE ABSOLUTE MAN 0.15 K/mm3 (0.00-0.00); METAMYELOCYTE PERCENT MAN 1 % (0-0); MONOCYTES ABSOLUTE MAN 0.77 K/mm3 (0.16-1.47); MONOCYTES PERCENT MAN 5 % (4-13); MYELOCYTE ABSOLUTE MAN 0.62 K/mm3 (0.00-0.00); MYELOCYTE PERCENT MAN 4 % (0-0); NEUTROPHILS ABSOLUTE MAN 9.92 K/mm3 (1.96-9.15); SEG NEUTROPHILS PERCENT MAN 62 % (41-73); TOTAL CELLS COUNTED 100
[2020-09-15 06:03] LABS: Anion Gap 4 mmol/L (6-16); Blood Urea Nitrogen 38 mg/dL (8-24); Bun/Creatinine Ratio 35.5 (12.0-20.0); CO2, Blood 34 mmol/L (21-32); Calcium, Blood 8.4 mg/dL (8.5-10.1); Chloride, Blood 104 mmol/L (98-108); Creatinine, Blood 1.07 mg/dL (0.60-1.20); Glomerular Filtration Rate >60 (60-); Glucose, Blood 131 mg/dL (70-99); Magnesium, Blood 2.4 mg/dL (1.6-2.4); Potassium, Blood 4.1 mmol/L (3.5-5.5); Sodium, Blood 142 mmol/L (136-145)
--- NOTE | 2020-09-15 18:27 | NUR ---
SHIFT SUMMARY PT ALERT AND ORIENTED TO SELF ONLY. PT IS VERY CONFUSED THIS SHIFT. PT IS AGITATED AND GETS UP CONSTANTLY WITHOUT CALLING. IRRITATED BY BED ALARM. IS CONSTANTLY TAKING OFF HIS OXYGEN, ON 3 LITERS OF OXYGEN AT BASELINE. IS HALLUCINATING AND BECAME SLIGHTLY COMBATIVE WITH P.T. SISTER SAYS THAT HE IS VERY CONFUSED COMPARED TO BASELINE. PT NOW HAS ORDERS FOR PRN ATIVAN AND HALPERIDOL. MEDICATED X1 THIS SHIFT. WILL POSSIBLY BE MOVED TO THE BACK BRYANT. VSS; WILL REPORT TO LEI NOLAN.
--- NOTE | 2020-09-16 04:38 | NUR ---
SHIFT SUMMARY: IRREGULAR HR. RESPS SHALLOW AND TACHYPNEIC, 22/MIN. 02 90-92% ON 3L VIA NC. PT NEEDS FREQUENT REMINDERS TO KEEP [address] SONOROUS EXPIRATORY WHEEZE AUSCULTATED THROUGHOUT. INSP COARSE CRACKLES TO LLL. SOB W/EXERTION. FREQUENT ATTEMPTS TO STAND AND AMB INDEPENDENTLY IN ROOM. GAIT IS UNSTEADY AND WEAK. IMPULSIVE WHEN NEEDING TO VOID. PARTIALLY INCONTINENT W/ VOIDS. AAO TO SELF ONLY. INTERMITTENTLY KNOWS HE IS IN THE HOSPITAL. CONFUSED AND SOMEWHAT REDIRECTABLE. DIFFICULT TO UNDERSTAND, NO TEETH, SLURRED SPEECH. IV ABT INFUSED PER ORDERS. NO ACUTE CHANGES OVERNIGHT. WCTM.
[2020-09-16 05:25] LABS: Hematocrit 36.3 % (37.0-53.0); Hemoglobin 11.1 g/dL (13.5-17.5); Mean Corpuscular HGB 25.5 pg (26.0-34.0); Mean Corpuscular HGB Conc 30.6 g/dL (31.5-36.5); Mean Corpuscular Volume 83 fL (80-100); Mean Platelet Volume 12.7 fL (9.1-12.4); Platelet Count 188 K/mm3 (150-400); RDW Coefficient Variation 17.8 % (11.7-14.2); RDW Standard Deviation 53.9 fL (35.1-46.3); Red Blood Cell Count 4.35 M/mm3 (4.30-5.90); White Blood Cell Count 13.89 K/mm3 (4.00-11.30)
[2020-09-16 05:47] LABS: Anion Gap 3 mmol/L (6-16); Blood Urea Nitrogen 29 mg/dL (8-24); CO2, Blood 36 mmol/L (21-32); Calcium, Blood 7.9 mg/dL (8.5-10.1); Chloride, Blood 102 mmol/L (98-108); Creatinine, Blood 0.97 mg/dL (0.60-1.20); Glomerular Filtration Rate >60 (60-); Glucose, Blood 132 mg/dL (70-99); Potassium, Blood 4.1 mmol/L (3.5-5.5); Sodium, Blood 141 mmol/L (136-145)
[2020-09-16 05:52] LABS: BAND PERCENT MAN 3 % (0-8); BASOPHILS PERCENT MAN 0 % (0-2); EOSINOPHILS PERCENT MAN 0 % (0-6); LYMPHOCYTES ABSOLUTE MAN 4.16 K/mm3 (0.84-5.20); LYMPHOCYTES PERCENT MAN 30 % (21-46); MONOCYTES ABSOLUTE MAN 1.11 K/mm3 (0.16-1.47); MONOCYTES PERCENT MAN 8 % (4-13); NEUTROPHILS ABSOLUTE MAN 8.61 K/mm3 (1.96-9.15); SEG NEUTROPHILS PERCENT MAN 59 % (41-73); TOTAL CELLS COUNTED 100
--- NOTE | 2020-09-16 16:12 | NUR ---
SHIFT SUMMARY PT AOX3. FORGETFUL AT TIMES. PT IS MORE AWAKE AND STEADY TODAY. PT USES URINAL AT BEDSIDE. SISTER AT BEDSIDE TODAY. PT WHEEZES BILAT UPPER LUNGS THIS AM; CALLED RT AND PT RECEIVED BREATHING TX AND FELT BETTER PER PT. PT IS ON 2-3 L OF O2 AT BASELINE. PT ALSO INCREASED OF DOSE OF LASIX BY DR HOOK. SISTER STATED SHE WILL BRING PT HOME MEDS SOON. BED IS IN THE LOWEST POSITION AND CALL LIGHT WITHIN REACH
--- NOTE | 2020-09-17 04:49 | NUR ---
SHIFT SUMMARY: VSS. AFEB. A/OX2. HEARD TALKING TO SELF IN ROOM FREQUENTLY. CALLS APPROPRIATELY FOR ASSISSTANCE MOST OF THE TIME. CAN BE IMPULSIVE W/ VOIDING BUT REDIRECTS WELL. BED ALARM IN PLACE. 02 92-97% ON 2L VIA NC. EXP WHEEZING AUDIBLE THROUGHOUT LUNGS. EXERTIONAL DYSPNEA NOTED. PT REPORTS COUGH SYRUP EFFECTIVELY MANAGING COUGH. DENIES CHEST PAIN OR PRESSURE. IV ABT INFUSED PER ORDERS. NO ACUTE CHANGES OVERNIGHT. WCTM.
--- NOTE | 2020-09-17 18:04 | NUR ---
ALERT. ORIENTED. COOPERATIVE. PLEASANT. DIFFICULT TO UNDERSTAND WHEN PATIENT TRIES TO COMMUNICATE DUE TO NO TEETH. STEADY GAIT FROM CHAIR TO BATHROOM. OXYGEN WITH EXTENTION SO HE DOES NOT HAVE TO TAKE OFF N/C. IMPULSIVE. DENIES ANT PAIN. WHEEZEY AT TIMES T/O. IV PATENT. WCTM
[2020-09-18] MEDS ORDERED: Acetaminophen325 M1 PO (11:19)
[2020-09-18] MEDS ORDERED: CRANBERRY AZO (11:21)
[2020-09-18] MEDS ORDERED: Q-Tussin100 MG/5 M (11:29)
[2020-09-18] MEDS ORDERED: ROBITUSSIN DM (11:36)
[2020-09-18] MEDS ORDERED: FURO40 PO (11:38)
[2020-09-18] MEDS ORDERED: IPRAT-ALBUT 0.5-3 ML INH (11:41)
[2020-09-18] MEDS ORDERED: PREDISONE (11:42)
[2020-09-18] MEDS ORDERED: VISBIOME 112.51 EACH PO (11:43)
--- NOTE | 2020-09-18 12:30 | NUR ---
REVIEW D'C W/SISTER. AWARE TO [facility]CH[facility] AT [facility] IN [place]. AWARE HAS TELE MED APPT 09/25 AND TO CALL IF NOT A GOOD TIME. AWARE CAN RETURN TO E.R. IF ANY PROBLEMS. IN W/C WITH POTATO SORTER ON OXYGEN TO POV
== END 2020-09-18 13:01 | disposition home or self-care (01) | DRG 871 ==
LOC: ER 18:33 → PCU 20:38 → MEDS 20:38 → PCU 22:03 → MEDS 09-11 21:34
PROVIDERS: Family Medicine; ADMIT Internal Medicine
DX: A41.9 Sepsis, unspecified organism (principal); J18.9 Pneumonia, unspecified organism; J96.21 Acute and chronic respiratory failure with hypoxia; C95.90 Leukemia, unspecified not having achieved remission; I13.0 Hypertensive heart and chronic kidney disease with heart failure and stage 1 through stage 4 chronic kidney disease, or unspecified chronic kidney disease; I50.32 Chronic diastolic (congestive) heart failure; J44.1 Chronic obstructive pulmonary disease with (acute) exacerbation; J44.0 Chronic obstructive pulmonary disease with (acute) lower respiratory infection; E46 Unspecified protein-calorie malnutrition; J91.8 Pleural effusion in other conditions classified elsewhere; Z20.822 Contact with and (suspected) exposure to COVID-19; N18.30 Chronic kidney disease, stage 3 unspecified; F03.90 Unspecified dementia, unspecified severity, without behavioral disturbance, psychotic disturbance, mood disturbance, and anxiety; I48.91 Unspecified atrial fibrillation; Z85.46 Personal history of malignant neoplasm of prostate; R65.20 Severe sepsis without septic shock; F17.210 Nicotine dependence, cigarettes, uncomplicated; Z68.28 Body mass index [BMI] 28.0-28.9, adult; Z99.81 Dependence on supplemental oxygen
CPT/HCPCS: 0241U; 36415; 71045; 71046; 80048; 80053; 83735; 83880; 85025; 87070; 87205; 93005; 93010; 94640; 94760; 94762; 96365; 96375; 97110; 97116; 97162; 97165; 97530; 99285-25; A9270; J0696; J1650; J1940; J1956; J2930; J7512

== ENCOUNTER 2020-09-30 00:41 | Inpatient (IN) | payer OTHER ==
[~2020-09-30] VITALS: Ht 162.6 cm; Wt 71.5 kg
[~2020-09-30 00:41] MED LIST changes: +ALBU2.5V5 NEB; +Acetaminophen325 M1 PO; +CRANBERRY AZO; +FLUT1DIS5 INH; +FURO40 PO; +IMBRUVICA420 MG PO; +IPRAT-ALBUT 0.5-3 ML INH; +OMEP20ER PO; +PREDISONE; +Q-Tussin100 MG/5 M; +ROBITUSSIN DM; +TIOT18 INH; +VISBIOME 112.51 EACH PO
[2020-09-30 01:02] LABS: PCO2 Arterial 47.1 mmHg (35-45); PO2 Arterial 102 mmHg (80-100); pH Blood Arterial 7.35 (7.35-7.45)
[2020-09-30 01:06] LABS: Hematocrit 40.9 % (37.0-53.0); Hemoglobin 12.8 g/dL (13.5-17.5); Mean Corpuscular HGB 25.4 pg (26.0-34.0); Mean Corpuscular HGB Conc 31.3 g/dL (31.5-36.5); Mean Corpuscular Volume 81 fL (80-100); Platelet Count 136 K/mm3 (150-400); RDW Coefficient Variation 18.1 % (11.7-14.2); RDW Standard Deviation 53.5 fL (35.1-46.3); Red Blood Cell Count 5.03 M/mm3 (4.30-5.90); White Blood Cell Count 11.24 K/mm3 (4.00-11.30)
[2020-09-30 01:14] LABS: Mean Platelet Volume 12.2 fL (9.1-12.4)
[2020-09-30 01:19] LABS: Alanine Aminotransfer (ALT/SGP 14 U/L (12-78); Albumin, Blood 2.5 g/dL (3.4-5.0); Albumin/Globulin Ratio 0.7 (0.8-1.8); Alk Phos 104 U/L (50-136); Anion Gap 7 mmol/L (6-16); Aspartate Aminotrans (AST/SGOT 19 U/L (12-37); Bilirubin, Total 0.8 mg/dL (0.1-1.0); Blood Urea Nitrogen 39 mg/dL (8-24); Bun/Creatinine Ratio 30.7 (12.0-20.0); CO2, Blood 27 mmol/L (21-32); Calcium, Blood 8.4 mg/dL (8.5-10.1); Chloride, Blood 100 mmol/L (98-108); Creatinine, Blood 1.27 mg/dL (0.60-1.20); Globulin, Blood 3.7 g/dL (2.2-4.0); Glomerular Filtration Rate 59 (60-); Glucose, Blood 327 mg/dL (70-99); Magnesium, Blood 2.1 mg/dL (1.6-2.4); Potassium, Blood 4.4 mmol/L (3.5-5.5); Sodium, Blood 134 mmol/L (136-145); Total Protein, Blood 6.2 g/dL (6.4-8.2); Troponin I <0.015 ng/mL (0.000-0.040)
[2020-09-30 01:40] LABS: BAND PERCENT MAN 7 % (0-8); BASOPHILS PERCENT MAN 0 % (0-2); EOSINOPHILS PERCENT MAN 0 % (0-6); LYMPHOCYTES ABSOLUTE MAN 5.05 K/mm3 (0.84-5.20); LYMPHOCYTES PERCENT MAN 45 % (21-46); MONOCYTES PERCENT MAN 0 % (4-13); NEUTROPHILS ABSOLUTE MAN 6.18 K/mm3 (1.96-9.15); SEG NEUTROPHILS PERCENT MAN 48 % (41-73); TOTAL CELLS COUNTED 100
[2020-09-30 04:27] LABS: Hematocrit 35.4 % (37.0-53.0); Hemoglobin 11.3 g/dL (13.5-17.5); Mean Corpuscular HGB 25.7 pg (26.0-34.0); Mean Corpuscular HGB Conc 31.9 g/dL (31.5-36.5); Mean Corpuscular Volume 81 fL (80-100); Platelet Count 119 K/mm3 (150-400); RDW Standard Deviation 53.1 fL (35.1-46.3); White Blood Cell Count 7.74 K/mm3 (4.00-11.30)
[2020-09-30 04:35] LABS: Mean Platelet Volume 12.1 fL (9.1-12.4)
[2020-09-30 04:44] LABS: Alanine Aminotransfer (ALT/SGP 11 U/L (12-78); Albumin, Blood 2.1 g/dL (3.4-5.0); Albumin/Globulin Ratio 0.7 (0.8-1.8); Alk Phos 85 U/L (50-136); Anion Gap 7 mmol/L (6-16); Aspartate Aminotrans (AST/SGOT 11 U/L (12-37); Bilirubin, Total 0.8 mg/dL (0.1-1.0); Blood Urea Nitrogen 38 mg/dL (8-24); Bun/Creatinine Ratio 31.4 (12.0-20.0); CO2, Blood 26 mmol/L (21-32); Calcium, Blood 8.1 mg/dL (8.5-10.1); Chloride, Blood 103 mmol/L (98-108); Creatinine, Blood 1.21 mg/dL (0.60-1.20); Globulin, Blood 3.1 g/dL (2.2-4.0); Glomerular Filtration Rate >60 (60-); Glucose, Blood 403 mg/dL (70-99); Potassium, Blood 3.7 mmol/L (3.5-5.5); Sodium, Blood 136 mmol/L (136-145); Total Protein, Blood 5.2 g/dL (6.4-8.2)
[2020-09-30 05:41] LABS: BAND PERCENT MAN 16 % (0-8); BASOPHILS PERCENT MAN 0 % (0-2); EOSINOPHILS PERCENT MAN 0 % (0-6); LYMPHOCYTES ABSOLUTE MAN 3.32 K/mm3 (0.84-5.20); LYMPHOCYTES PERCENT MAN 43 % (21-46); METAMYELOCYTE ABSOLUTE MAN 0.07 K/mm3 (0.00-0.00); METAMYELOCYTE PERCENT MAN 1 % (0-0); MONOCYTES ABSOLUTE MAN 0.61 K/mm3 (0.16-1.47); MONOCYTES PERCENT MAN 8 % (4-13); NEUTROPHILS ABSOLUTE MAN 3.71 K/mm3 (1.96-9.15); SEG NEUTROPHILS PERCENT MAN 32 % (41-73); TOTAL CELLS COUNTED 100
--- NOTE | 2020-09-30 07:23 | NUR ---
TRANSFER/ ASSESSMENT PT ARRIVED TO ICU VIA STRETCHER, MOVED TO ICU BED VIA SLIDER SHEET. PT ALERT AND ORIENTED TO PERSON AND PLACE. ON BIPAP 12/8 @ 40% c O2 SATS >90%. AMIODARONE INFUSING @ 1MG/MIN, PT IN A-FIB RANGING FROM 110-130'S. PT ARRIVED WITH 2 PERIPHERAL IV'S. POWERGLIDE ESTABLISHED SHORTLY AFTER ARRIVAL TO UNIT DUE TO MULTITUDE OF MEDICATIONS NEEDED. PT BORDERLINE HYPOTENSIVE UPON ARRIVAL TO THE UNIT, CONTINUED TO BE HYPOTENSIVE. DR BLEDSOE CONTACTED, ORDERS RECEIVED FOR 500ML BOLUS AND NOREPINEPHRINE. NOREPINEPHRINE INITIATED AT 3MCG/MIN c MAP >65. CONDOM CATHETER PLACED DRAINING CLEAR, YELLOW URINE. PTS SISTER IS HIS MAIN CARRIER BLOWER WHOM HE LIVES WITH. I CALLED HER THIS AM TO CONFIRM CODE STATUS AND MED LIST (YESSY- [phone] OR [phone]). YESSY STATED HE WANTS CPR AND INTUBATION BUT DOES NOT WANT TO BE ON SNF LIFE SUPPORT. YESSY ALSO STATED SHE WOULD BE IN THIS AM TO BRING PTS UP TO DATE MED LIST WELL HIS ORAL CANCER MEDICATIONS. YESSY WAS ADVISED SHE WOULD BE LET IN BEFORE OFFICIAL VISITING HOURS DUE TO HER DIRECT ROLE IN HIS CARETAKING. REPORT GIVEN TO OVIDIO GRAY.
--- NOTE | 2020-09-30 10:45 | NUR ---
NOTIFIED DR. OSHEA OF [facility] [place], [place] [address]. TREATED PER HSS AND WILL RECHECK IN 1 HOUR AND CALL BACK WITH RESULTS.
[2020-09-30] MEDS ORDERED: DOXY100 PO (15:06)
--- NOTE | 2020-09-30 18:28 | NUR ---
SUMMARY PT RESTING IN BED. A/O X4 AND USING CALL LIGHT APPROPRIATELY. PT CAN MOVE SELF SIDE TO SIDE IN BED AND CAN BOOST HIMSELF UP IN BED. WORE BIPAP ALL DAY. ONLY TAKING OFF FOR SHORT BREAKS. PT HAS TENACIOUS SPUTUM THAT IS DIFFICULT TO GET OUT BUT PT HAS STRONG COUGH AND STRONG GAG. FREQUENT ORAL CARE. TOOK PT OFF OF BIPAP FOR LUNCH BUT PT WAS TOO SOB TO EAT. DRANK SOME MILK THEN WENT BACK ON BIPAP. ABLE TO TITRATE LEVOPHED OFF TODAY. MAKING GOOD URINE. ON AMIO GTT STILL. NO SIGN OF DISTESS. CALL LIGHT IN REACH.
--- NOTE | 2020-09-30 20:00 | NUR ---
ASSESSMENT/ASSUMED CARE BEDSIDE REPORT RECEIVED FROM DAY SHIFT RN. PT SITTING UP IN BED WITH BIPAP ON. DENIES PAIN OR DISCOMFORT AT THIS TIME. LUNGS COARSE THROUGHOUT. BIPAP / FIO2 35%. MOIST NONOPRODUCTIVE COUGH NOTED. HEART RATE IRREGULAR-AFIB. BP LOW WITH CONT TO MONITOR, POSSIBLE WILL RESTART LEVOPHED. BT+ ABD SOFT AND NONTENDER. TEMP 101.2, MED WITH TYLENOL WITH BITES OF APPLESAUCE. INSTRUCTED PT TO TUCK CHIN WHEN SWALLOWING. NO COUGHING OR CHOKING NOTED WITH PO INTAKE. BIPAP REMOVED SHORTLY FOR ORAL CARE AND PT INTAKE. CONDOM CATH INTACT. 1+ EDEMA TO BILAT LOWER EXT. PT TALKATIVE AND ATKA. MOVING SELF IN BED
--- NOTE | 2020-09-30 20:19 | NUR ---
TEMP DR ROOT NOTIFIED REGARDING TEMP 101.2. RECEIVED ORDERS FOR TYLENOL. PT ALREADY ON ANTIBIOTICS.
--- NOTE | 2020-09-30 22:36 | NUR ---
HYPOTENSION PT SLEEPING WITH BIPAP ON. HEART RATE CONT IRREGULAR 90-100'S AFIB. BP 76/55 MAP 60. RESTARTED LEVOPHED AT 2 MCQ/MIN
[2020-10-01 03:58] LABS: Hematocrit 32.8 % (37.0-53.0); Hemoglobin 10.4 g/dL (13.5-17.5); Mean Corpuscular HGB 25.4 pg (26.0-34.0); Mean Corpuscular HGB Conc 31.7 g/dL (31.5-36.5); Mean Corpuscular Volume 80 fL (80-100); Platelet Count 106 K/mm3 (150-400); RDW Coefficient Variation 18.4 % (11.7-14.2); RDW Standard Deviation 53.8 fL (35.1-46.3); White Blood Cell Count 8.37 K/mm3 (4.00-11.30)
[2020-10-01 04:10] LABS: Albumin, Blood 1.9 g/dL (3.4-5.0); Anion Gap 6 mmol/L (6-16); Blood Urea Nitrogen 33 mg/dL (8-24); Bun/Creatinine Ratio 28.2 (12.0-20.0); CO2, Blood 28 mmol/L (21-32); Calcium, Blood 8.1 mg/dL (8.5-10.1); Chloride, Blood 105 mmol/L (98-108); Creatinine, Blood 1.17 mg/dL (0.60-1.20); Glomerular Filtration Rate >60 (60-); Glucose, Blood 234 mg/dL (70-99); Phosphorus, Blood 3.5 mg/dL (2.5-4.9); Potassium, Blood 3.7 mmol/L (3.5-5.5); Sodium, Blood 139 mmol/L (136-145)
[2020-10-01 04:20] LABS: BAND PERCENT MAN 25 % (0-8); BASOPHILS PERCENT MAN 0 % (0-2); EOSINOPHILS PERCENT MAN 0 % (0-6); LYMPHOCYTES ABSOLUTE MAN 2.42 K/mm3 (0.84-5.20); LYMPHOCYTES PERCENT MAN 29 % (21-46); METAMYELOCYTE ABSOLUTE MAN 0.83 K/mm3 (0.00-0.00); METAMYELOCYTE PERCENT MAN 10 % (0-0); MONOCYTES ABSOLUTE MAN 0.75 K/mm3 (0.16-1.47); MONOCYTES PERCENT MAN 9 % (4-13); MYELOCYTE ABSOLUTE MAN 0.16 K/mm3 (0.00-0.00); MYELOCYTE PERCENT MAN 2 % (0-0); NEUTROPHILS ABSOLUTE MAN 4.18 K/mm3 (1.96-9.15); SEG NEUTROPHILS PERCENT MAN 25 % (41-73); TOTAL CELLS COUNTED 100
--- NOTE | 2020-10-01 06:13 | NUR ---
SHIFT SUMMARY PT RESTING QUIELTY. TURNING PT WITH PT ASSIST Q2HR. TEMP MAX 101.2 DURING THE NIGHT MED WITH TYLENOL WITH GOOD RESULTS. RESTRATED ON LEVOPHED TO KEEP MAP GREATER THAN 65. CURRENTLY LEVOPHED AT 2 MCQ/MIN. PT WITH BIPAP 12/6 FIO2 35%. SHORT BREAKS FOR MOUTH CARE AND ORAL INTAKE GIVEN. PT WITH CONDOM CATH ON. CBG Q6HR, COVERED BOTH TIMES. POSSITVE BLOOD CULTURE REPORTED TO DR ROOT, GRAM - BACILLI. PT ON ROCEPHIN AND AZITHROMYCIN. REPORT TO ON COMING NURSE.
--- NOTE | 2020-10-01 09:40 | NUR ---
ASSUMED CARE BEDSIDE REPORT FROM GEOVANI NOLAN AT 0700. PT RESTING IN BED. WAKES c VERBAL STIMULI. DENIES NEEDS. PT ALTERNATES BETWEEN BIPAP AT 12/6 35% AND 4L VIA NC. LUNGS COARSE c WET COUGH THROUGHOUT. PT USES YANKEUR TO SUCTION SPUTUM. O2 SATS LOW 90'S. AFIB ON MONITOR, RATE 110-120'S. LEVO GTT VIA PIC FOR MAP>65, CURRENTLY INFUSING AT 2 MCG/MIN. PIV PATENT. CONDOM CATH IN PLACE FOR INCONTINENCE. WILL CONTINUE TO MONITOR.
--- NOTE | 2020-10-01 17:28 | NUR ---
SHIFT SUMMARY PT REMAIN ON 4L VIA NC MOST OF SHIFT. TOLERATED WELL. LUNGS COARSE, WET COUGH. O2 SATS LOW 90'S. LEVO GTT TITRATED OFF THIS SHIFT. PT UP TO CHAIR. HR 100-120'S, AFIB. BP STABLE. CONDOM CATH IN PLACE, REPLACED SEVERAL TIMES THIS SHIFT. GOOD APPETITE. WILL CONTINUE TO MONITOR UNTIL REPORT TO ONCOMING NURSE.
--- NOTE | 2020-10-01 19:30 | NUR ---
ASSUMING PT CARE: PT RESTING W/ SHALLOW BUT EVEN RESPIRATIONS. AWAKES TO TACTILE STIMULI & IS APPROPRIATELY INTERACTIVE. SPEECH IS DIFF TO UNDERSTAND @ TIMES D/T GARBLED & GRAVEL SOUNDING VOICE HOWEVER PT IS ABLE TO REPEAT HIMSELF UNTIL HE IS UNDERSTOOD. PT HAS NOTABLY LOUD & LOOSE COUGH, HE IS ABLE TO YANKOUR SPUTUM ON HIS OWN. LEVO GTT ON STANDBY. MAP BORDERLINE @ 55-65. WILL MONITOR CLOSELY & RESTART LEVO IF NECESSARY. HR AFIB 110-130s.
--- NOTE | 2020-10-02 03:00 | NUR ---
UPDATE: PT IS HAVING MUCH DIFFICULTY RESTING HIS VERY MOIST & COARSE COUGH SOUNDS LIKE IT IS GETTING WORSE THE NIGHT PROGRESSES. HE IS UNABLE TO COUGH UP ANYTHING IN HIS MOUTH TO BE SUCTIONED PREVIOUSLY. IT SOUNDS LIKE IT IS ONLY ABLE TO GET IT UP INTO HIS THROAT. PT OFTEN DRINKING WATER TO WASH DOWN SPUTUM. W/ HEAVY COUGHING PT DESATS FROM 88-90% TO LOW 80s & HAS DIFFICULTY RECOVERING UNLESS O2 IS TITRATED UP TO 6L/MIN FOR A SHORT TIME. RT CALLED TO BEDSIDE TO DISCUSS RETURNING TO BiPAP. PT GIVEN NEB Tx & SAT UP IN BED & APPEARED TO IMPROVE. WILL MONITOR CLOSELY & CONSIDER BiPAP IF PT BEGINS TO DECOMPENSATE.
[2020-10-02 03:57] LABS: Hematocrit 37.3 % (37.0-53.0); Hemoglobin 11.7 g/dL (13.5-17.5); Mean Corpuscular HGB 25.5 pg (26.0-34.0); Mean Corpuscular HGB Conc 31.4 g/dL (31.5-36.5); Mean Corpuscular Volume 81 fL (80-100); NRBC ABSOLUTE 0.02 K/mm3 (0.00-0.02); NRBC Auto 0.2 /100 WBC (0.0-0.2); Platelet Count 108 K/mm3 (150-400); RDW Coefficient Variation 19.1 % (11.7-14.2); RDW Standard Deviation 57.1 fL (35.1-46.3); Red Blood Cell Count 4.59 M/mm3 (4.30-5.90); White Blood Cell Count 8.39 K/mm3 (4.00-11.30)
[2020-10-02 04:11] LABS: Albumin, Blood 1.9 g/dL (3.4-5.0); Anion Gap 5 mmol/L (6-16); Blood Urea Nitrogen 44 mg/dL (8-24); Bun/Creatinine Ratio 37.3 (12.0-20.0); CO2, Blood 28 mmol/L (21-32); Calcium, Blood 8.9 mg/dL (8.5-10.1); Chloride, Blood 104 mmol/L (98-108); Creatinine, Blood 1.18 mg/dL (0.60-1.20); Glomerular Filtration Rate >60 (60-); Glucose, Blood 180 mg/dL (70-99); Phosphorus, Blood 2.9 mg/dL (2.5-4.9); Potassium, Blood 4.5 mmol/L (3.5-5.5); Sodium, Blood 137 mmol/L (136-145)
[2020-10-02 04:22] LABS: BAND PERCENT MAN 17 % (0-8); BASOPHILS PERCENT MAN 0 % (0-2); EOSINOPHILS PERCENT MAN 0 % (0-6); LYMPHOCYTES ABSOLUTE MAN 3.18 K/mm3 (0.84-5.20); LYMPHOCYTES PERCENT MAN 38 % (21-46); METAMYELOCYTE ABSOLUTE MAN 0.08 K/mm3 (0.00-0.00); METAMYELOCYTE PERCENT MAN 1 % (0-0); MONOCYTES ABSOLUTE MAN 0.58 K/mm3 (0.16-1.47); MONOCYTES PERCENT MAN 7 % (4-13); MYELOCYTE ABSOLUTE MAN 0.33 K/mm3 (0.00-0.00); MYELOCYTE PERCENT MAN 4 % (0-0); NEUTROPHILS ABSOLUTE MAN 4.19 K/mm3 (1.96-9.15); SEG NEUTROPHILS PERCENT MAN 33 % (41-73); TOTAL CELLS COUNTED 100
--- NOTE | 2020-10-02 06:06 | NUR ---
SHIFT SUMMARY: PT HAD MUCH DIFFICULTY RESTING D/T PERSISTENT COUGH. OVER THE PAST 2hr PT SEEMED TO IMPROVE & HAS BEEN ABLE TO REST. SEE PREVIOUS NOTATION. LS CONTINUE TO BE VERY COARSE. SUPPLEMENTAL O2 NEEDS INC ONLY SLIGHLY THROUGHOUT THE NIGHT. SPO2 85-95%. HR CONTINUES TO BE 110-130s, AFIB. LEVO GTT ON STANDBY ALL NIGHT. PLAN TO EVALUATE FOR POSSIBLE STATUS CHANGE TODAY.
--- NOTE | 2020-10-02 08:00 | NUR ---
Received report from Delilah NOLAN. Patient resting wnhen entering room and awakened easily. He is on 10 L NC and sats low to mid 80's and audible coarse sounds. Called RT and we are going to NT suction, placed BIPAP in place prior to hyper oxignate him at 16/6 100% FiO2. Shortly after was able to NT suction til clear. Replaced BIPAP at same setting. Dr Madison in room while suctioning. Patient moving all extremities. Patient positions self in bed for comfort. Patient hasd 20 ga PowerGlide in DELICIA and is infusing NS TKO. He also has 20ga IV LFA and RAC dressings intact and sites WNL's and are flushed and SL's. He uses urinal in very small amounts dark yellow urine. He is in A-Fib and BP 72/50 and MAP >60's.
--- NOTE | 2020-10-02 09:48 | NUR ---
Patient continues to rest on BIPAP 16/6 FiO2 90% and sats >90%. He has audible course breathing sounds and will NT suction again and get sputum sample. Dr Garnett has been consulted by Dr Madison and she has been in to see him and wrote new orders.
--- NOTE | 2020-10-02 11:45 | NUR ---
Patient intubated r/t copius unmanaged secretions. He was placed on BIPAP from 10L on via NC and settings of 16/6 100% FiO2 for pre oxinization. He was intbated 8.0 ET and 25 cm at lips. We used 20 mg Etomidate and started on 30mcg/kg/min Propofol and then started Levophed at 5 mcg/min and increased shortly to 15 mcg/min for systolics in the 60-70's. OG paced post intubation.
[2020-10-02 13:17] LABS: PCO2 Arterial 74.6 mmHg (35-45); PO2 Arterial 80.8 mmHg (80-100)
[2020-10-02 13:18] LABS: pH Blood Arterial 7.14 (7.35-7.45)
--- NOTE | 2020-10-02 14:00 | NUR ---
2 1L boluses given 1100 & 1300 with little success. ABG drawn. Post ABG vent settings are AC 16, TV 400, FiO2 95%. PEEP 10 and sats 88-90%. Family at bedside. PICC line placed post intubation, pressors and Propofol. Patient remains in A-Fib 120-130's.
--- NOTE | 2020-10-02 16:00 | NUR ---
Started vasopressin and Levophed maxed at 20 mcg/min, with little success and systolics 60-80's and MAPS 50-60's, HR 130 A-Fib RVR. Vent settings remain AC 16, TV 400, FiO2 95%, PEEP 10 and sats 88-92%.
--- NOTE | 2020-10-02 16:55 | NUR ---
Spiritual care note: Met with Josep's sister, Monse, at bedside. Pt is intubated and sedated. Monse tells me that her brother has had "mental problems" his whole life. He lived with his parents until their . 11 yrs ago, Monse took Josep in when dad . She admits, "Its hard sometimes" caring for him. She says that She and pt have spoken about his wishes, and he would not want long-term life support. They are not mandaeism, but Monse was appreciative of theraputic listening, gentle beauty counselor, affirmation of love, and encouragement. Encouraged self-care and rest. I will remain available to pt and family.
[2020-10-02 17:40] LABS: Source, Urine Catheter
[2020-10-02 17:44] LABS: Bilirubin, Urine Neg (Neg); Blood, Urine 2+ (Neg); Color, Urine Yellow (P-Yellow); Glucose Qualitative, Urine Neg (Neg); Ketones, Urine Neg (Neg); Leukocyte Esterase, Urine 1+ (Neg); Nitrite, Urine Neg (Neg); Protein, Urine 3+ (Neg); Urobilinogen, Urine 1+ (Normal)
--- NOTE | 2020-10-02 18:00 | NUR ---
Current vent settings AC 16, TV 400, FiO2 100%, PEEP 5.0 and sast 88-92%. PICC line infusing Propofol 30 mcg/kg/min, NS at 100 ml/hr, Levophed 20 mcg/min, Vasopressin 0.04 units/min, Neosynepherine 100 mcg/min. placed 16Fr coude concepcion and had cloudy yellow urine out.
[2020-10-02 18:01] LABS: Appearance, Urine Cloudy (Clear)
[2020-10-02 18:07] LABS: Amorphous Heavy (0-Heavy); Bacteria Few /hpf; Hyaline Casts 0-2 /lpf (0-2); Squamous Epithelial Cells Rare /hpf (Few)
--- NOTE | 2020-10-02 19:15 | NUR ---
ASSUMPTION OF CARE RECEIVED REPORT FROM SABAS NOLAN. ASSUMED CARE OF PATIENT. PATIENT INTUBATED AND SEDATED ON 30MCG/PROPOFOL. VENT SETTINGS AC 16, TV 400, PEEP 5, FIO2 100%. SATS IN MID 80'S. DR SANCHEZ AWARE. SUCTIONING COPIOUS AMOUNT OF THICK, BARTON SECRETIONS VIA ETT. OG IN PLACE TO LIS WITH DARK BROWN OUTPUT. LEVOPHED INFUSING AT 20MCG/MIN, VASO INFUSING AT 0.04 UNITS/MIN, LUIS INFUSING AT 125MCG/MIN VIA PICC LINE IN LEFT UPPER ARM. WHITMAN TO GRAVITY, PATENT AND DRAININ CLEAR, YELLOW URINE. WILL REVIEW ORDERS AND TREAT PRESCRIBED.
[2020-10-02 20:18] LABS: Base Excess Venous -7.6 mmol/L; Bicarbonate Venous 16.9 mmol/L (24.0-30.0); PCO2 Venous 75.9 mmHg (38-42); PO2 Venous 44.8 mmHg (38-42); pH Blood Venous 7.08 (7.34-7.37)
--- NOTE | 2020-10-02 20:47 | NUR ---
CHANGE IN CONDITION PATIENT WITH 02 SATS DECREASING BELOW 85%. CONTINUED TO SUCTIONS COPIOUS AMOUNTS OF SECRETIONS VIA ETT AND ORALLY. VBG WAS DRAWN, CRITICAL VALUE REPORTED TO DR. SANCHEZ. DR. SANCHEZ AND RT TO BEDSIDE. VENT SETTINGS ADJUSTED PER DR. SANCHEZ WITH NO IMPROVEMENT. PATIENT REPOSITIONED WITH NO IMPROVEMENT. SISTER NOTIFIED AND WAS ENCOURAGED TO COME IN AND BE WITH PATIENT. WILL CONTINUE TO MONITOR.
--- NOTE | 2020-10-03 | NUR ---
REASSESSMENT PATIENT 02 SATURATIONS CONTINUE TO DECLINE, CURRENTLY 60-70% ON 100% FIO2 WITH SUCTIONING OF COPIOUS AMOUNT OF BARTON, THICK SECRETIONS. DECREASED PROPOFOL TO 10MCG/KG/MIN. PATIENT WITH NO PURPOSEFUL MOVEMENTS, NO RESPONSE TO PHYSICAL OR VERBAL STIMULI. RESTRAINTS REMOVED CHARTED. HEART RATE TACHYCARDIC AFIB IN 120-140'S. NO GAG OR COUGH NOTED WHEN SUCTIONING. CONDITION EXPLAINED TO FAMILY IN DETAIL, FAMILY WANTS TO CONTINUE WITH CURRENT MEDICAL INTERVENTIONS UNTIL ADDITIONAL FAMILY CAN ARRIVE IN THE MORNING. WILL CONTINUE TO TREAT PRESCRIBED. CODE STATUS REMAINS UNCHANGED. FAMILY TO BEDSIDE.
--- NOTE | 2020-10-03 01:25 | NUR ---
CHANGE IN CONDITION NO LONGER ABLE TO OBTAIN A BLOOD PRESSURE READING OR 02 SAT READING. HANDS ARE PURPLE IN COLOR, COLD TO TOUCH. WEAK RADIAL PULSE NOTED. DR. SANCHEZ TO BEDSIDE REVIEWED VITALS AND PATIENT'S CONDITION. SPOKE TO NEPHEW AT BEDSIDE, AND SPOKE WITH SISTER YESSY OVER THE PHONE AND GAVE UPDATE. SISTER YESSY WOULD LIKE TO CONTINUE WITH THE VENTILATOR UNTIL ADDITIONAL FAMILY CAN ARRIVE. WILL CONTINUE TO MONITOR.
--- NOTE | 2020-10-03 03:59 | NUR ---
FINAL DISCHARGE PATIENT'S HEART RATE TRENDED DOWN, NO PULSE NOTED. DR. SANCHEZ TO BEDSIDE. FAMILY NOTIFIED, RT TO ROOM TO REMOVE VENTILATOR. IV FLUIDS DISCONTINUED. WHITMAN CATHETER REMOVED, INTACT. PATIENT TO BE RELEASED TO [facility] IN [place].
== END 2020-10-03 05:17 | DRG 871 ==
LOC: ER 00:41 → ICUE 02:44 → ICUW 02:44 → ICUE 03:55
PROVIDERS: Emergency Medicine; Family Medicine; Internal Medicine Critical Care Medicine; ADMIT Internal Medicine
PROC: 5A09357 Assistance with Respiratory Ventilation, Less than 24 Consecutive Hours, Continuous Positive Airway Pressure (ICD-10-PCS; principal; 2020-09-30)
PROC: 02HV33Z Insertion of Infusion Device into Superior Vena Cava, Percutaneous Approach (ICD-10-PCS; 2020-10-02)
PROC: 3E043XZ Introduction of Vasopressor into Central Vein, Percutaneous Approach (ICD-10-PCS; 2020-10-02)
PROC: 0BH18EZ Insertion of Endotracheal Airway into Trachea, Via Natural or Artificial Opening Endoscopic (ICD-10-PCS; 2020-10-02)
PROC: 5A1935Z Respiratory Ventilation, Less than 24 Consecutive Hours (ICD-10-PCS; 2020-10-02)
DX: A41.52 Sepsis due to Pseudomonas (principal); J96.21 Acute and chronic respiratory failure with hypoxia; I50.33 Acute on chronic diastolic (congestive) heart failure; J18.9 Pneumonia, unspecified organism; R65.21 Severe sepsis with septic shock; J44.1 Chronic obstructive pulmonary disease with (acute) exacerbation; C91.10 Chronic lymphocytic leukemia of B-cell type not having achieved remission; J44.0 Chronic obstructive pulmonary disease with (acute) lower respiratory infection; Z99.81 Dependence on supplemental oxygen; Z66 Do not resuscitate; N18.30 Chronic kidney disease, stage 3 unspecified; Z85.46 Personal history of malignant neoplasm of prostate; F03.90 Unspecified dementia, unspecified severity, without behavioral disturbance, psychotic disturbance, mood disturbance, and anxiety; E11.65 Type 2 diabetes mellitus with hyperglycemia; Z78.1 Physical restraint status; Z86.39 Personal history of other endocrine, nutritional and metabolic disease; Z20.822 Contact with and (suspected) exposure to COVID-19; T38.0X5A Adverse effect of glucocorticoids and synthetic analogues, initial encounter; Y92.230 Patient room in hospital as the place of occurrence of the external cause; E11.22 Type 2 diabetes mellitus with diabetic chronic kidney disease; D69.6 Thrombocytopenia, unspecified; D63.8 Anemia in other chronic diseases classified elsewhere; I48.91 Unspecified atrial fibrillation; Z87.891 Personal history of nicotine dependence
CPT/HCPCS: 31500; 36415; 36569; 36600; 51702; 71045; 80053; 80069; 81001; 82803; 82947; 83605; 83735; 83880; 84145; 84484; 85025; 87040; 87077; 87186; 93005; 93010; 93306; 94002; 94640; 94644; 94660; 96361; 96365; 96367; 96368; 96375; 99285-25; A9270; C1751; C1894; J0282; J0456; J0696; J1650; J1940; J2370; J2405; J2543; J2704; J2930; J3370; J3480; J7030; J7040; J7050; J7060; P9046